=== PATIENT | female | born 1990 | race Hispanic/Latino ===

== ENCOUNTER 2018-10-03 22:44 | Emergency (ER) | payer BC ==
[2018-10-03 23:34] LABS: Absolute Lymphocytes (CBC) 2.1 K/uL (0.7-4.9); Basophils % 0.2 % (0-1.3); Eosinophils % 3.1 % (0-4.4); Hematocrit 33.2 % (36.0-45.0); Lymphocytes % 27.1 % (15.3-44.8); MPV 8.9 fL (7.6-11.3); Monocytes % 8.3 % (3.3-12.3); RBC Red Blood Cell Count 3.73 M/uL (3.86-4.86)
[2018-10-03 23:56] LABS: BUN Blood Urea Nitrogen 8 mg/dL (7-18); Bicarbonate 23 mmol/L (21-32); Glucose Level 96 mg/dL (74-106); Potassium 3.4 mmol/L (3.5-5.1); Sodium Level 140 mmol/L (136-145)
[2018-10-04 00:04] LABS: HCG, Quantitative 28713 mIU/mL (1-3)
[2018-10-04 00:04] LABS: Urine Blood 2+ (NEG); Urine Glucose NEGATIVE (NEG); Urine Protein NEGATIVE (NEG); Urine pH 5.5 (5.0-7.0)
[2018-10-04 00:53] LABS: Urine Bacteria <20 /HPF (<20); Urine Culture Reflex Order NOT NEEDED; Urine Mucus LIGHT /HPF (NONE SEEN); Urine RBC 20-50 /HPF (NONE SEEN)
[2018-10-04] MEDS ORDERED: POTASSIUM 25 MEQ EFFERV TAB ONE (01:09)
[2018-10-04] MEDS ORDERED: NA CHLORIDE 0.9% 1,000 ML ONE (01:16)
--- NOTE | 2018-10-04 02:15 | EDPHYS ---
Physician Documentation [facility] Name: Cathy Watt Age: 27 yrs Sex: Female : 1990 Arrival Date: 10/03/2018 Time: 22:45 Bed 23 Private MD: ED Physician Ray Quintero HPI: 10/03 23:40 This 27 yrs old Female presents to ER via Wheelchair with complaints of cp Vaginal Bleeding 16 Weeks . 23:40 The patient presents to the emergency department with vaginal bleeding, that is heavy. cp 23:40 The estimated gestational age is 16 weeks. course: care: private OB cp physician, Ultrasound: the patient had an ultrasound, on October 02, 2018. Previous pregnancies: in previous pregnancies patient has had no complications. Associated signs and symptoms: Pertinent negatives: dysuria, fever, vomiting. 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 - Social history:: Smoking status: Patient/guardian denies using tobacco. - Ebola Screening: : Patient negative for fever greater than or equal to 101.5 degrees Fahrenheit, and additional compatible Ebola Virus Disease symptoms Patient denies exposure to infectious person Patient denies travel to an Ebola-affected area in the 21 days before illness onset No symptoms or risks identified at this time. ROS: 23:45 Constitutional: Negative for body aches, chills, fever, poor PO intake. cp 23:45 Eyes: Negative for injury, pain, redness, and discharge. cp 23:45 ENT: Negative for drainage from ear(s), ear pain, sore throat, difficulty swallowing, difficulty handling secretions. 23:45 Cardiovascular: Negative for chest pain, palpitations. 23:45 Respiratory: Negative for cough, shortness of breath, wheezing. 23:45 Abdomen/GI: Negative for abdominal pain, nausea, vomiting, and diarrhea, black/tarry stool, rectal bleeding. 23:45 Back: Negative for pain at rest, pain with movement. 23:45 : Positive for vaginal bleeding, Negative for urinary symptoms. 23:45 Neuro: Negative for altered mental status, dizziness, headache, syncope, weakness. 23:45 All other systems are negative. Exam: 10/04 00:15 Constitutional: The patient appears in no acute distress, alert, awake, cp non-diaphoretic, non-toxic, well developed, well nourished. 00:15 Head/Face: Normocephalic, atraumatic. cp 00:15 Eyes: Periorbital structures: appear normal, Conjunctiva: normal, no exudate, no injection, Lids and lashes: appear normal, bilaterally. 00:15 ENT: External ear(s): are unremarkable, Nose: is normal, Mouth: Lips: moist, Oral mucosa: pink and intact, moist, Posterior pharynx: is normal, airway is patent, no erythema, no exudate. 00:15 Neck: ROM/movement: is normal, is supple, without pain, no range of motions limitations, no nuchal rigidity. 00:15 Chest/axilla: Inspection: normal, Palpation: is normal, no crepitus, no tenderness. 00:15 Cardiovascular: Rate: normal, Rhythm: regular. 00:15 Respiratory: the patient does not display signs of respiratory distress, Respirations: normal, no use of accessory muscles, no retractions, no splinting, no tachypnea, labored breathing, is not present, Breath sounds: are clear throughout, no decreased breath sounds, no stridor, no wheezing. 00:15 Abdomen/GI: Inspection: abdomen appears normal, Bowel sounds: active, all quadrants, Palpation: soft, in all quadrants, mild abdominal tenderness, in the right lower quadrant and left lower quadrant, rebound tenderness, is not appreciated, voluntary guarding, is not appreciated, involuntary guarding, is not appreciated. 00:15 Back: CVA tenderness, is absent. 00:15 : Pelvic Exam: External exam: is normal, Speculum exam: mild bleeding, os that is open, no tissue in cervix is seen, no tissue in vagina is seen, the nurse was present for the exam. 00:15 Neuro: Orientation: to person, place \T\ time. Mentation: is normal, Motor: moves all fours, strength is normal. Vital Signs: 10/03 23:07 BP 107 / 63; Pulse 64; Resp 16 S; Temp 99.5(O); Pulse Ox 100% on R/A; Weight 72.57 kg ca1 (R); Height 5 ft. 2 in. (157.48 cm) (R); Pain 4/10; 23:43 BP 99 / 60; Pulse 59; Resp 17 S; Pulse Ox 100% on R/A; ca1 10/04 00:39 BP 102 / 58; Pulse 60; Resp 17 S; Pulse Ox 100% on R/A; ca1 00:58 BP 103 / 59 Supine; Pulse 60; Resp 16 S; Pulse Ox 100% on R/A; ca1 01:00 BP 107 / 65 Sitting; Pulse 62; Resp 17 S; Pulse Ox 100% on R/A; ca1 01:02 BP 91 / 54 Standing; Pulse 74; Resp 16 S; Pulse Ox 100% on R/A; ca1 01:07 BP 93 / 50 Standing; Pulse 73; Resp 17 S; Pulse Ox 100% on R/A; ca1 02:25 BP 96 / 55 Supine; Pulse 76; Resp 17; Pulse Ox 100% ; Pain 0/10; tl1 10/03 23:07 Body Mass Index 29.26 (72.57 kg, 157.48 cm) ca1 MDM: 10/03 22:58 Patient medically screened. cp 10/04 00:00 Differential diagnosis: threatened Ab, inevitable Ab, complete Ab, retained Ab. cp 02:12 Data reviewed: vital signs, nurses notes, lab test result(s), I have discussed the cp patient's presentation/case with the attending Emergency Department Physician; and as a result, I will discharge patient. 02:12 Counseling: I had a detailed discussion with the patient and/or guardian regarding: the cp historical points, exam findings, and any diagnostic results supporting the discharge/admit diagnosis, lab results, radiology results, the need for outpatient follow up, an OB/Gyne specialist, to return to the emergency department if symptoms worsen or persist or if there are any questions or concerns that arise at home. Response to treatment: the patient's symptoms have mildly improved after treatment. ED course: VSS. Vaginal bleeding improved. FHTs 148. Will discharge to home for continued monitoring with pelvic rest precautions. 10/03 23:08 Order name: Quantitative Hcg 10/03 23:08 Order name: Abo/rh Typing 10/03 23:08 Order name: Basic Metabolic Panel; Complete Time: 00:49 cp 10/03 23:08 Order name: CBC with Diff; Complete Time: 00:49 cp 10/04 00:50 Interpretation: Normal except: RBC 3.73; HGB 11.7; HCT 33.2. 10/03 23:08 Order name: HCG, Quantitative; Complete Time: 00:49 EDMS 10/03 23:08 Order name: ABO/RH typing; Complete Time: 00:49 EDMS 10/03 23:08 Order name: Urine Test (obtain specimen); Complete Time: 00:00 10/04 00:01 Order name: Urine Dipstick--Ancillary (enter results) [facility] 10/04 00:01 Order name: Urine --Ancillary (enter results) [facility] 10/04 00:03 Order name: Urine Microscopic Only; Complete Time: 01:24 dm5 10/04 01:24 Interpretation: Normal except: URBC 20-50. 10/04 00:04 Order name: Urine --Ancillary; Complete Time: 00:49 EDMS 10/04 00:04 Order name: Urine Dipstick-Ancillary; Complete Time: 00:49 EDMS 10/03 23:08 Order name: IV Saline Lock; Complete Time: 23:13 cp 10/03 23:08 Order name: Labs collected and sent; Complete Time: 23:13 cp 10/03 23:08 Order name: NPO; Complete Time: 23:13 cp 10/03 23:08 Order name: Urine Dipstick-Ancillary (obtain specimen); Complete Time: 00:00 cp 10/03 23:33 Order name: Pelvic Exam Setup; Complete Time: 23:42 cp 10/03 23:37 Order name: FHT's; Complete Time: 23:42 cp 10/04 00:50 Order name: Orthostatics; Complete Time: 01:06 cp Administered Medications: 01:06 Drug: Potassium Effervescent Tablet 25 mEq Route: PO; ca1 02:27 Follow up: Response: No adverse reaction; No change in condition tl1 01:06 Drug: NS 0.9% 1000 ml Route: IV; Rate: 1 bolus; Site: right antecubital; ca1 02:22 Follow up: IV Status: Completed infusion; IV Intake: 1000ml dm5 Disposition: 04:00 Co-signature as Attending Physician, Ray Quintero MD. Disposition: 10/04/18 02:15 Discharged to Home. Impression: Threatened . - Condition is Stable. - Discharge Instructions: Threatened Miscarriage, Vaginal Bleeding During , Second Trimester, Pelvic Rest. - Medication Reconciliation Form, Thank You Letter, Antibiotic Education, Prescription Opioid Use form. - Follow up: Nikko Wyatt MD; When: 2 - 3 days; Reason: Recheck today's complaints. - Problem is new. - Symptoms have improved. Signatures: Dispatcher [employer] EDMS Altagracia Sibley RN RN tl1 Ralph Maradiaga PA PA cp Starr, Gregory, MD MD Ena Sinclair RN RN [facility] Trinity Mackey RN dm5 Corrections: (The following items were deleted from the chart) 02:28 02:15 10/04/2018 02:15 Discharged to Home. Impression: Threatened . Condition tl1 is Stable. Forms are Medication Reconciliation Form, Thank You Letter, Antibiotic Education, Prescription Opioid Use. Follow up: Nikko Wyatt; When: 2 - 3 days; Reason: Recheck today's complaints. Problem is new. Symptoms have improved. cp
--- NOTE | 2018-10-04 02:15 | ER ---
Nurse's Notes [facility] Name: Cathy Watt Age: 27 yrs Sex: Female : 1990 Arrival Date: 10/03/2018 Time: 22:45 Bed 23 Private MD: Diagnosis: Threatened Presentation: 10/03 23:05 Presenting complaint: states: about 15 minutes ago pt started bleeding heavily. ca1 She is 16 weeks . She was just sitting and stood up to go pee when she started bleeding. Transition of care: patient was not received from another setting of care. Onset of symptoms was October 03, 2018. Risk Assessment: Do you want to hurt yourself or someone else? Patient reports no desire to harm self or others. Initial Sepsis Screen: Does the patient meet any 2 criteria? No. Patient's initial sepsis screen is negative. Does the patient have a suspected source of infection? No. Patient's initial sepsis screen is negative. Care prior to arrival: None. 23:05 Method Of Arrival: Wheelchair ca1 23:05 Acuity: MADAI 3 ca1 Triage Assessment: 23:07 General: Appears in no apparent distress. uncomfortable, Behavior is calm, cooperative, ca1 appropriate for age. Pain: Complains of pain in suprapubic area Pain does not radiate. Pain currently is 4 out of 10 on a pain scale. Pain began suddenly, 30 min ago. : bright red blood noted on wheelchair, pt skirt and on the floor. 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 - Social history:: Smoking status: Patient/guardian denies using tobacco. - Ebola Screening: : Patient negative for fever greater than or equal to 101.5 degrees Fahrenheit, and additional compatible Ebola Virus Disease symptoms Patient denies exposure to infectious person Patient denies travel to an Ebola-affected area in the 21 days before illness onset No symptoms or risks identified at this time. Screenin:10 Abuse screen: Denies threats or abuse. Denies injuries from another. Nutritional ca1 screening: No deficits noted. Tuberculosis screening: No symptoms or risk factors identified. Fall Risk IV access (20 points). Assessment: 23:10 General: Appears in no apparent distress. comfortable, Behavior is calm, cooperative, ca1 appropriate for age. Pain: Complains of pain in suprapubic area Pain does not radiate. Pain currently is 4 out of 10 on a pain scale. Pain began 30 min ago. Neuro: Level of Consciousness is awake, alert, obeys commands, Oriented to person, place, time, situation. Cardiovascular: Heart tones S1 S2 present Capillary refill < 3 seconds Patient's skin is warm and dry. Pulses are all present. Respiratory: Airway is patent Respiratory effort is even, unlabored, Respiratory pattern is regular, symmetrical, Breath sounds are clear bilaterally. GI: Abdomen is round non-distended, Bowel sounds present X 4 quads. Abd is soft and non tender X 4 quads. Abdomen is tender to palpation in suprapubic area. : Reports vaginal bleeding that is bright red, moderate flow, since 15 minutes ago. EENT: No deficits noted. No signs and/or symptoms were reported regarding the EENT system. Derm: Skin is intact, is healthy with good turgor, Skin is pink, warm \T\ dry. Musculoskeletal: Circulation, motion, and sensation intact. Capillary refill < 3 seconds, Range of motion: intact in all extremities. 23:43 Reassessment: Patient appears in no apparent distress at this time. Patient and/or ca1 family updated on plan of care and expected duration. Pain level reassessed. Patient is alert, oriented x 3, equal unlabored respirations, skin warm/dry/pink. 10/04 00:39 Reassessment: Patient appears in no apparent distress at this time. Patient and/or ca1 family updated on plan of care and expected duration. Pain level reassessed. Patient is alert, oriented x 3, equal unlabored respirations, skin warm/dry/pink. 01:26 Reassessment: Patient appears in no apparent distress at this time. Patient and/or ca1 family updated on plan of care and expected duration. Pain level reassessed. Patient is alert, oriented x 3, equal unlabored respirations, skin warm/dry/pink. 01:47 General: Appears in no apparent distress. comfortable, appears to be resting quietly dm5 with eyes closed. Family at bedside. Call light within reach. . Behavior is calm, cooperative. Vital Signs: 10/03 23:07 BP 107 / 63; Pulse 64; Resp 16 S; Temp 99.5(O); Pulse Ox 100% on R/A; Weight 72.57 kg ca1 (R); Height 5 ft. 2 in. (157.48 cm) (R); Pain 4/10; 23:43 BP 99 / 60; Pulse 59; Resp 17 S; Pulse Ox 100% on R/A; ca1 10/04 00:39 BP 102 / 58; Pulse 60; Resp 17 S; Pulse Ox 100% on R/A; ca1 00:58 BP 103 / 59 Supine; Pulse 60; Resp 16 S; Pulse Ox 100% on R/A; ca1 01:00 BP 107 / 65 Sitting; Pulse 62; Resp 17 S; Pulse Ox 100% on R/A; ca1 01:02 BP 91 / 54 Standing; Pulse 74; Resp 16 S; Pulse Ox 100% on R/A; ca1 01:07 BP 93 / 50 Standing; Pulse 73; Resp 17 S; Pulse Ox 100% on R/A; ca1 02:25 BP 96 / 55 Supine; Pulse 76; Resp 17; Pulse Ox 100% ; Pain 0/10; tl1 10/03 23:07 Body Mass Index 29.26 (72.57 kg, 157.48 cm) ca1 Vitals: 10/03 23:59 Heart Tones 148. ca1 ED Course: 22:45 Patient arrived in ED. do 22:52 Ena Sinclair RN is Primary Nurse. ca1 22:53 Ralph Maradiaga PA is PHCP. cp 22:53 Ray Quintero MD is Attending Physician. cp 23:06 Triage completed. ca1 23:07 Arm band placed on right wrist. ca1 23:10 Patient has correct armband on for positive identification. Placed in gown. Bed in low ca1 position. Call light in reach. Side rails up X 1. Pulse ox on. NIBP on. Warm blanket given. 23:10 Inserted saline lock: 20 gauge in right antecubital area, using aseptic technique. ca1 Blood collected. 10/04 00:30 Assist provider with pelvic exam: Set up pelvic tray. Performed by Ralph YAP ca1 Patient tolerated well. 00:46 Urine --Ancillary (enter results) Sent. dm5 00:46 Urine Dipstick--Ancillary (enter results) Sent. dm5 00:46 Quantitative Hcg Sent. dm5 00:46 Abo/rh Typing Sent. dm5 01:25 Report given to DONN Rodriguez. ca1 01:46 Trinity Mackey, RN is Primary Nurse. dm5 02:10 Nikko Wyatt MD is Referral Physician. cp 02:23 IV discontinued, intact, bleeding controlled, No redness/swelling at site. Pressure dm5 dressing applied. Administered Medications: 01:06 Drug: Potassium Effervescent Tablet 25 mEq Route: PO; ca1 02:27 Follow up: Response: No adverse reaction; No change in condition tl1 01:06 Drug: NS 0.9% 1000 ml Route: IV; Rate: 1 bolus; Site: right antecubital; ca1 02:22 Follow up: IV Status: Completed infusion; IV Intake: 1000ml dm5 Intake: 02:22 IV: 1000ml; Total: 1000ml. dm5 Outcome: 02:15 Discharge ordered by . cp 02:26 Discharged to home via wheelchair, with family. tl1 02:26 Condition: stable 02:26 Discharge instructions given to patient, family, Instructed on discharge instructions, follow up and referral plans. Demonstrated understanding of instructions, follow-up care. 02:28 Patient left the ED. tl1 Signatures: Trinity Mackey, DONN RN dm5 Altagracia Sibley RN RN tl1 Ralph Maradiaga PA PA cp [place], Danielle do Acob, Cheryl, RN RN ca1
== END 2018-10-04 02:28 | disposition home or self-care (01) ==
LOC: ER 22:44
DX: O20.0 Threatened abortion (principal); Z3A.16 16 weeks gestation of pregnancy
CPT/HCPCS: 36415; 80048; 81003; 81015; 81025; 84702; 85025; 86900; 86901; 96360; 99284; J7030

== ENCOUNTER 2021-07-30 11:22 | Emergency (ER) | payer OTHER ==
--- OUTSIDE RECORDS SUMMARY | 2021-07-30 11:26 | XMS REPORT | Continuity of Care Document ---
:1990 Author Organization [facility] t Address [address] [place] [address] Care Team Providers Name Role Phone Danny Wren Attending Clinician Unavailable MARILEE Attending Clinician Unavailable Butch Attending Clinician Unavailable NORAH RO Attending Clinician Unavailable Angelica Wren Admitting Clinician Unavailable Payers Payer Name Policy Type Policy Number Effective Date Expiration Date S ource Problems This patient has no known problems. Allergies, Adverse Reactions, Alerts Allergy Allergy Status Severity Reaction(s) Onset Inactive Treating Comm ents Source Name Type Date Date Clinician shellfis FA Active SV THROAT [facility] h TINGLING,DIZ 05-01 [facility] derived ZINESS,CARVRE 00:00: [facility] [place] avocado FA Active U SWELLIMNG, [facility] NUMBNESS- 2 [facility] THROAT/MOUTH 00:00: [facility] [place] avocado FA Active U [facility] 6-01 [facility] 00:[facility]: [facility] [place] SEAFOOD DA Active SV HEADACHE, [facility] SHAKING,NUMB 08-23 [facility] NESS 00:00: [facility] TH[facility]AT[facility]TH [facility] [place] avocado FA Active U SWELLIMNG, [facility] NUMBNESS- 6 [facility] THROAT/MOUTH 00:00: [facility] [place] No Known DA Active U 2018-03 [facility] Allergie 2-28 Clear s 00:00: [place] [address] [place] [address] No Known DA Active U 2018-03 [facility] Allergie 2-28 [facility] s 00:[facility]: [facility] [place] Medications This patient has no known medications. Procedures Procedure Date / Time Performed Performing Clinician Sour e [id number] 2021-07-15 00:00:00 [facility] [id number] 2021-07-15 00:00:00 [facility] [id number] 2021-07-15 00:00:00 [facility] Encounters Start End Encounter Admission Attending Care Care Encounter Source Date/Time Date/Time Type Type Clinicians Facility Department ID 2021-05-01 Inpatient KATHERYN Wren [facility] [id number] [facility] 01:11:00 Danny 55 [facility] 2021-03-27 Outpatient Siena [facility] [id number] [facility] 15:01:13 Danny 11 [facility] 2020-12-18 Inpatient [facility] [id number] [facility] 18:42:00 [id number] [facility] [place] 2021-07-14 2021-07-16 Inpatient EM Siena [facility] [id number] [facility] 23:57:00 20:56:00 Danny [id number] [facility] [place] 2021-07-14 2021-07-16 Inpatient EM Siena [facility] OB [id number] [facility] 23:57:00 20:56:00 Danny 17 [facility] [place] 2021-05-01 2021-05-05 Inpatient [facility] [id number] [facility] 01:59:00 12:24:00 Danny 66 [facility] [place] 2021-05-01 2021-05-05 Inpatient EL Siena, [facility] OBANTE [id number] [facility] 01:59:00 12:24:00 Danny [id number] [facility] [place] 2021-03-27 2021-03-27 Outpatient EM Siena, [facility] RADI [id number] [facility] 10:20:00 10:20:00 Danny [id number] [facility] [place] 2021-03-20 2021-03-20 Inpatient EM Siena, [facility] RADI [id number] [facility] 11:00:00 11:00:00 Danny [id number] [facility] [place] 2021-02-12 2021-02-12 Emergency E MARILEE BL MHBL [id number] BL 16:19:00 21:52:00 , MK 2020-12-18 2020-12-18 Emergency EM Butch, [facility] KARLIE [id number] [facility] 18:42:00 22:58:00 Analysa 47 [facility] [place] 2020-10-01 2020-10-01 Emergency E JAYJAY, MHBL MHBL [id number] MHBL 16:03:00 18:52:00 ORIANA 2020-08-26 2020-08-26 Outpatient Siena, [facility] SILVIA [id number] [facility] 16:15:00 16:15:00 Danny [id number] [facility] [place] 2020-08-23 2020-08-23 [facility] [id number] [facility] 16:00:00 16:00:00 Danny [id number] [facility] Results Test Description Test Time Test Comments Results Result Comments Source HGB HCT 2021-07-16 11:58:00 Test Item Value Reference Range Interpretation Comme nts HEMOGLOBIN (test code = HGB) 11.0 g/dL 10.1-13.8 N HEMATOCRIT (test code = HCT) 33.1 % 32.5-41.8 N AG HEPATITIS B [id number] 05:36:00 Test Item Value Reference Range Interpretation Comments AG HEPATITIS B SURFACE (test code NONREACTIVE NONREACTIVE = HBSAG) AB HEPATITIS C [id number] 05:36:00 Test Item Value Reference Range Interpretation Comments AB HEPATITIS C (test code = NONREACTIVE NONREACTIVE HCVAB) SIGNAL TO CUTOFF (test code = 0.06 <0.80 N CUTOFF) AB [id number] 05:36:00 Test Item Value Reference Range Interpretation Comments AB TREPONEMA (test code = TREPAB) NONREACTIVE NONREACTIVE AB HIV 1 05:36:00 Test Item Value Reference Range Interpretation Comments AB HIV 1 2 (test NONREACTIVE NONREACTIVE Done by S Firmafonaur code = [id number]) 4th Gen HIV Ag/Ab Combo Screen PIH [id number] 00:40:00 Test Item Value Reference Range Interpretation Comments CREATININE (test code = CREAT) 0.5 mg/dL 0.5-1.0 N SGOT/AST (test code = AST) 25 units/L 15-37 N SGPT/ALT (test code = ALT) 15 units/L 12-78 N LACTIC DEHYDROGENASE(LDH) (test 236 units/L 81-234 H code = LDH) : *COMPREHENSIVE METABOLIC [id number] 00:40:00 Test Item Value Reference Range Interpretation Comments SODIUM (test code = NA) 138 mEq/L 135-145 N POTASSIUM (test code = K) 4.3 mEq/L 3.5-5.0 N CHLORIDE (test code = CL) 105 mEq/L 100-115 N CARBON DIOXIDE (test code = CO2) 25 mEq/L 22-31 N ANION GAP (test code = GAP) 12.00 10-20 N GLUCOSE (test code = GLU) 74 mg/dL 65-110 N BLOOD UREA NITROGEN (test code = 9 mg/dL 7-18 N BUN) GLOMERULAR FILTRATION RATE (test 145 ml/min >60 N code = GFR) TOTAL PROTEIN (test code = PROT) 5.4 gm/dL 6.3-8.2 L ALBUMIN (test code = ALB) 2.3 gm/dL 3.4-4.8 L CALCIUM (test code = CA) 8.0 mg/dL 8.4-10.2 L BILIRUBIN TOTAL (test code = 0.2 mg/dL 0.2-1.0 N BILT) ALKALINE PHOSPHATASE TOTAL (test 176 units/L 46-116 H code = ALKP) : *COVID 19 Asymptomatic IH [id number] 00:11:00 Test Item Value Reference Range Interpretation Comments COVID 19 NEGATIVE NEGATIVE This test has b een Asymptomatic IH AG authorize d only for the (test code = detection ofpro teins from COVNONPUIAG) SARS-CoV-2, not for any other viruses orpathogens. N egative results should be treated as presumptive andconfirmed wi th a molecular assay , if necessary for patientmanageme nt. Negative result s do not rule out COVID- 19 andshould not b e used as the sole basis for treatment orpat ient management deci sions, including infec tion controldecision s. Negative result s should be considered i n thecontext of a patient's recent exposure s, history and thepresence of clinical signs and symptoms consis tent withCOVID-19. T his test has not been FD A cleared or approved; th e test hasbeen authorshakir gomez by FDA under an Emerge ncy Use Authorization(E UA) for use by laborato stephanie certified under the CLIA thatmeet the re quirements to perform mode rate, high or waivedcomple xity tests. This jackelin t is authorized for use at thePoint of Car e (POC), i.e., in patien t care settingsoperati ng under a CLIA Certificat e of Waiver, Certifi pranay ofCompliance, o r Certificate of Accreditation. This test is only authori patricia for the duration of thedeclaration that circumstances e xist justifying theauthorizatio n of emergency use o f in vitro diagnostic test sfor detection and/o r diagnosis of CO VID-19 under Tpypwow77 4(b)(1) of the Act, 21 U.S .C. 360bbb-3(b)(1), unless theauthorizatio n is terminated or r evoked sooner. CBC W/AUTO [id number] 00:09:00 Test Item Value Reference Range Interpretation Comments WHITE BLOOD CELL (test code = WBC) 6.2 K/mm3 6.5-12.3 L RED BLOOD CELL (test code = RBC) 3.60 M/mm3 3.51-4.69 N HEMOGLOBIN (test code = HGB) 10.7 g/dL 10.1-13.8 N HEMATOCRIT (test code = HCT) 33.1 % 32.5-41.8 N MEAN CELL VOLUME (test code = MCV) 91.9 fL 84.6-96.6 N MEAN CELL HGB (test code = MCH) 29.7 pg 27.3-33.9 N MEAN CELL HGB CONCETRATION (test 32.3 gm/dL 32.0-34.2 N code = MCHC) RED CELL DISTRIBUTION WIDTH (test 15.4 % 12.2-16.3 N code = RDW) PLATELET COUNT (test code = PLT) 170 K/mm3 134-363 N MEAN PLATELET VOLUME (test code = 11.5 fL 9.2-12.7 N MPV) NEUTROPHIL % (test code = NT%) 56.4 % 57.9-77.3 L LYMPHOCYTE % (test code = LY%) 26.8 % 14.5-29.7 N MONOCYTE % (test code = MO%) 11.1 % 3.6-10.2 H EOSINOPHIL % (test code = EO%) 4.8 % 0.0-3.0 H BASOPHIL % (test code = BA%) 0.3 % 0.1-0.9 N NEUTROPHIL # (test code = NT#) 3.5 K/mm3 LYMPHOCYTE # (test code = LY#) 1.7 K/mm3 MONOCYTE # (test code = MO#) 0.7 K/mm3 EOSINOPHIL # (test code = EO#) 0.30 K/mm3 BASOPHIL # (test code = BA#) 0.0 K/mm3 RBC MORPHOLOGY REQUIRED (test code NORMAL NORMAL = RBCM) PLATELET MORPHOLOGY REQUIRED (test NORMAL NORMAL code = PLTMR) RUPTURE OF [id number] 08:24:00 Test Item Value Reference Range Interpretation Comments RUPTURE OF MEMBRANES (test code NON-RUPTURED = ROM) AG HEPATITIS B [id number] 03:20:00 Test Item Value Reference Range Interpretation Comments AG HEPATITIS B SURFACE (test code NONREACTIVE NONREACTIVE = HBSAG) AB HEPATITIS C [id number] 03:20:00 Test Item Value Reference Range Interpretation Comments AB HEPATITIS C (test code = NONREACTIVE NONREACTIVE HCVAB) SIGNAL TO CUTOFF (test code = 0.04 <0.80 N CUTOFF) AB [id number] 03:20:00 Test Item Value Reference Range Interpretation Comments AB TREPONEMA (test code = TREPAB) NONREACTIVE NONREACTIVE AB HIV 1 03:20:00 Test Item Value Reference Range Interpretation Comments AB HIV 1 2 (test NONREACTIVE NONREACTIVE Done by [facility] artandseekr code = [id number]) 4th Gen HIV Ag/Ab Combo Screen COMPREHENSIVE METABOLIC [id number] 02:16:00 Test Item Value Reference Range Interpretation Comments SODIUM (test code = NA) 134 mEq/L 135-145 L POTASSIUM (test code = K) 4.2 mEq/L 3.5-5.0 N CHLORIDE (test code = CL) 103 mEq/L 100-115 N CARBON DIOXIDE (test code = CO2) 21 mEq/L 22-31 L ANION GAP (test code = GAP) 13.80 10-20 N GLUCOSE (test code = GLU) 166 mg/dL 65-110 H BLOOD UREA NITROGEN (test code = 8 mg/dL 7-18 N BUN) GLOMERULAR FILTRATION RATE (test 187 ml/min >60 N code = GFR) CREATININE (test code = CREAT) 0.4 mg/dL 0.5-1.0 L TOTAL PROTEIN (test code = PROT) 6.3 gm/dL 6.3-8.2 N ALBUMIN (test code = ALB) 2.6 gm/dL 3.4-4.8 L CALCIUM (test code = CA) 8.2 mg/dL 8.4-10.2 L BILIRUBIN TOTAL (test code = BILT) 0.2 mg/dL 0.2-1.0 N SGOT/AST (test code = AST) 27 units/L 15-37 N SGPT/ALT (test code = ALT) 15 units/L 12-78 N ALKALINE PHOSPHATASE TOTAL (test 92 units/L 46-116 N code = ALKP) COVID 19 Asymptomatic IH [id number] 01:58:00 Test Item Value Reference Range Interpretation Comments COVID 19 NEGATIVE NEGATIVE This test has b een Asymptomatic IH AG authorize d only for the (test code = detection ofpro teins from COVNONPUIAG) SARS-CoV-2, not for any other viruses orpathogens. N egative results should be treated as presumptive andconfirmed wi th a molecular assay , if necessary for patientmanageme nt. Negative result s do not rule out COVID- 19 andshould not b e used as the sole basis for treatment orpat ient management deci sions, including infec tion controldecision s. Negative result s should be considered i n thecontext of a patient's recent exposure s, history and thepresence of clinical signs and symptoms consis tent withCOVID-19. T his test has not been FD A cleared or approved; th e test hasbeen authori zemichell by FDA under an Emerge ncy Use Authorization(E UA) for use by laborato stephanie certified under the CLIA thatmeet the re quirements to perform mode rate, high or waivedcomple xity tests. This jackelin t is authorized for use at thePoint of Car e (POC), i.e., in patien t care settingsoperati ng under a CLIA Certificat e of Waiver, Certifi pranay ofCompliance, o r Certificate of Accreditation. This test is only authori zed for the duration of thedeclaration that circumstances e xist justifying theauthorizatio n of emergency use o f in vitro diagnostic test sfor detection and/o r diagnosis of CO VID-19 under Pdlebiq86 4(b)(1) of the Act, 21 U.S .C. 360bbb-3(b)(1), unless theauthorizatio n is terminated or r evoked sooner. CBC W/AUTO [id number] 01:54:00 Test Item Value Reference Range Interpretation Comments WHITE BLOOD CELL (test code = WBC) 8.5 K/mm3 6.5-12.3 N RED BLOOD CELL (test code = RBC) 3.17 M/mm3 3.51-4.69 L HEMOGLOBIN (test code = HGB) 9.4 g/dL 10.1-13.8 L HEMATOCRIT (test code = HCT) 28.9 % 32.5-41.8 L MEAN CELL VOLUME (test code = MCV) 91.2 fL 84.6-96.6 N MEAN CELL HGB (test code = MCH) 29.7 pg 27.3-33.9 N MEAN CELL HGB CONCETRATION (test 32.5 gm/dL 32.0-34.2 N code = MCHC) RED CELL DISTRIBUTION WIDTH (test 13.0 % 12.2-16.3 N code = RDW) PLATELET COUNT (test code = PLT) 229 K/mm3 134-363 N MEAN PLATELET VOLUME (test code = 10.4 fL 9.2-12.7 N MPV) NEUTROPHIL % (test code = NT%) 84.3 % 57.9-77.3 H LYMPHOCYTE % (test code = LY%) 12.3 % 14.5-29.7 L MONOCYTE % (test code = MO%) 2.5 % 3.6-10.2 L EOSINOPHIL % (test code = EO%) 0.2 % 0.0-3.0 N BASOPHIL % (test code = BA%) 0.1 % 0.1-0.9 N NEUTROPHIL # (test code = NT#) 7.1 K/mm3 LYMPHOCYTE # (test code = LY#) 1.0 K/mm3 MONOCYTE # (test code = MO#) 0.2 K/mm3 EOSINOPHIL # (test code = EO#) 0.02 K/mm3 BASOPHIL # (test code = BA#) 0.0 K/mm3 RBC MORPHOLOGY REQUIRED (test code NORMAL NORMAL = RBCM) PLATELET MORPHOLOGY REQUIRED (test NORMAL NORMAL code = PLTMR) URINALYSIS [id number] 01:54:00 Test Item Value Reference Range Interpretation Comments UA COLOR (test code = YELLOW YELLOW COLU) UA APPEARANCE (test CLEAR CLEAR code = APPU) UA GLUCOSE DIPSTICK 1+ NEGATIVE A (test code = DGLUU) UA BILIRUBIN DIPSTICK NEGATIVE NEGATIVE (test code = BILU) UA KETONE DIPSTICK NEGATIVE NEGATIVE (test code = KETU) UA SPECIFIC GRAVITY 1.025 1.001-1.035 N (test code = SGU) UA BLOOD DIPSTICK NEG NEGATIVE (test code = OLAMIDE) UA PH DIPSTICK (test 6.0 5-9 code = CARLOS) UA PROTEIN DIPSTICK NEGATIVE NEGATIVE (test code = PROU) UA UROBILINIOGEN 0.2 EU/dL See_Comment [Automated DIPSTICK (test code = messag e] The URO) system which generated this result transmit alia reference range : <=1.0. The reference range was not used to interpret this result as normal/abnormal . UA NITRITE DIPSTICK NEGATIVE NEGATIVE (test code = EDIE) UA LEUKOCYTE ESTERASE NEG NEGATIVE DIPSTICK (test code = LEUU) UA WBC (test code = 0-2 #/hpf NONE SEEN WBCU) UA EPITHELIAL CELLS NONE SEEN #/HPF RARE-FEW (test code = EPIU) UA RBC (test code = 0-2 #/hpf NONE SEEN RBCU) UA MUCUS (test code = 1+ NONE SEEN MUCU) URINE SAMPLE: CLEAN CATCH- US PREG UT [id number] [facility]:00[facility] 1990 Sex: F Patient Name: KIRSTEN JANE Unit No: [id number] EXAMS: CPT CODE: [id number] US PREG UT TRANSVAGINAL 08115 PROCEDURE INFORMATION: Exam: US After First Trimester, Transabdominal and US , Transvaginal Exam date and time: 05/01/2021 3:08 AM Age: 30 years old Clinical indication: Screening exam; Other: Twins at 26 weeks; Growth, cervical length, placenta location; ; Additional info: Twins at 26 weeks; Growth, cervical length, placenta locat TECHNIQUE: Imaging protocol: Real-time transabdominal obstetrical ultrasound of the maternal pelvis and a second or third trimester with image documentation. Transvaginal imaging wasused for better evaluation of the fetus, adnexa, and/or cervix. COMPARISON: OT US PREG AFTER 1ST TRI 03/27/2021 10:46 AM FINDINGS: Live twin intrauterine with thickened membrane suggesting dichorionic diamniotic . Closed cervix measuring 1.5 cm containing a small amount of mucus or debris. Nonvisualized maternal ovaries related to body habitus and overlying bowel gas. Twin A: Presentation: Cephalic. Placenta: Anterior grade 2. No placenta previa JASMINE: Qualitatively normal. Single deepest pocket 5.7 cm. Biparietaldiameter: 6.64 cm or 26 weeks 5 days Head circumference: 24.54 cm or 26 weeks 5 days Abdominal circumference: 21.79 cm or 26 weeks 2 days Femur length: 4.87 cm or 26 weeks 3 days Gestational age (AUA): 26 weeks 4 days Estimated due date (AUA): 08/03/2021 Estimated weight:927 +/-139 g (2 lb 1 oz +/-5 oz) 57.4% heart rate 136 bpm. FL/BPD: 73.39 (71-87) FL/AC: 22.36 (20-24) HC/AC: 1.13 (0.93-1.11) Cephalic index: 77.24 (70-86) The structures are not individually evaluated on this examination, but no abnormality is demonstrated. Twin B: [facility] NAME: KIRSTEN JANE Radiology Department PHYS: Danny Bello MD [address] : 1990 AGE: 30 SEX: F [place], [place] [address] LOC: Ildefonso Bustillo PHONE #: [phone] EXAM DATE: 05/01/2021 STATUS: ADM IN FAX #: [phone] RAD NO: Page 1 Signed Report (CONTINUED) Patient Name: KIRSTEN JANE Unit No: [id number] EXAMS: CPT CODE: [id number] [facility] TRANSVAGINAL 40147 <Continued> Presentation: Transverse maternal left Placenta: Posterior right grade 2. No placenta previa. JSAMINE: Qualitatively normal. Single deepest pocket 7.0 cm Biparietal diameter: 6.45 cm or 26 weeks 1 day Head circumference: 23.95 cm or 26 weeks 0 days Abdominal circumference: 21.64 cm or 26 weeks 1 day Femur length: 4.77 cm or 26 weeks 0 days Gestational age (AUA): 26 weeks 1 day Estimated due date (AUA): 08/06/2021 Estimated weight: 886 +/-133 g (1 lb 15 oz +/-5 oz) 52.9% heart rate 125 bpm. FL/BPD: 74.05(71-87) FL/AC: 22.06 (20-24) HC/AC: 1.11 (0.93-1.11) Cephalic index: 74.95 (70-86) The structures are not individually evaluated on this examination, but no abnormality is demonstrated. IMPRESSION: Live twin intrauterine as above described. Elect ronically Signed by Miller Car MD on 05/01/2021 at 0424 Reported and signed by: Miller Car MD CC: Technologist:Evi He RDMS Probe: [id number] Trnscrbd D/ (042) GCD.CPS Orig Print D/T: S: 05/01/2021 (0425) [facility] NAME: BUCKKIRSTEN Radiology Department PHYS: Danny Bello MD [address] : 1990 AGE: 30 SEX: F [place] [address] LOC: F.027 A PHONE #: [phone] EXAM DATE: 05/01/2021 STATUS: ADM IN FAX #: [phone] RAD NO: Page 2 Signed Report Patient Name: KIRSTEN JANE Unit No: [id number] EXAMS: CPT CODE: [id number] US PREG UT TRANSVAGINAL 15410 <Continued> [facility] NAME: RYLIE JANELINDA Radiology Department PHYS: Danny Bello MD [address] : 1990 AGE: 30 SEX: F [place] [address] LOC: F.027 A PHONE #: [phone] EXAM DATE: 05/01/2021 STATUS: ADM IN FAX #: [phone] RAD NO: Page 3 Signed Report- US FLW [id number] [facility] 1990 Sex: F Patient Name: KIRSTEN JANE Unit No: [id number] EXAMS: CPT CODE: [id number] [place]W [place] [address] PROCEDURE INFORMATION: Exam: US After First Trimester, Transabdominal and US , Transvaginal Exam date and time: 05/01/2021 3:08 AM Age: 30 years old Clinical indication: Screening exam; Other: Twins at 26 weeks; Growth, cervical length, placenta location; ; Additional info: Twins at 26 weeks; Growth, cervical length, placenta locat TECHNIQUE: Imaging protocol: Real-time transabdominal obstetrical ultrasound of the maternal pelvis and a second or third trimester with image documentation. Transvaginal imaging wasused for better evaluation of the fetus, adnexa, and/or cervix. COMPARISON: OT US PREG AFTER 1ST TRI 03/27/2021 10:46 AM FINDINGS: Live twin intrauterine with thickened membrane suggesting dichorionic diamniotic . Closed cervix measuring 1.5 cm containing a small amount of mucus or debris. Nonvisualized maternal ovaries related to body habitus and overlying bowel gas. Twin A: Presentation: Cephalic. Placenta: Anterior grade 2. No placenta previa JASMINE: Qualitatively normal. Single deepest pocket 5.7 cm. Biparietaldiameter: 6.64 cm or 26 weeks 5 days Head circumference: 24.54 cm or 26 weeks 5 days Abdominal circumference: 21.79 cm or 26 weeks 2 days Femur length: 4.87 cm or 26 weeks 3 days Gestational age (AUA): 26 weeks 4 days Estimated due date (AUA): 08/03/2021 Estimated weight:927 +/-139 g (2 lb 1 oz +/-5 oz) 57.4% heart rate 136 bpm. FL/BPD: 73.39 (71-87) FL/AC: 22.36 (20-24) HC/AC: 1.13 (0.93-1.11) Cephalic index: 77.24 (70-86) The structures are not individually evaluated on this examination, but no abnormality is demonstrated. [facility] B: [facility] NAME: KIRSTEN JANE Radiology Department PHYS: Danny Bello MD [address] : 1990 AGE: 30 SEX: F [place], [place] [address] LOC: Ildefonso Bustillo PHONE #: [phone] EXAM DATE: 05/01/2021 STATUS: ADM IN FAX #: [phone] RAD NO: Page 1 Signed Report (CONTINUED) Patient Name: KIRSTEN JANE Unit No: [id number] EXAMS: CPT CODE: [id number] [place] [address] <Continued> Presentation: Transverse maternal left Placenta: Posterior right grade 2. No placenta previa. JASMINE: Qualitatively normal. Single deepest pocket 7.0 cm Biparietal diameter: 6.45 cm or 26 weeks 1 day Head circumference: 23.95 cm or 26 weeks 0 days Abdominal circumference: 21.64 cm or 26 weeks 1 day Femur length: 4.77 cm or 26 weeks 0 days Gestational age (AUA): 26 weeks 1 day Estimated due date (AUA): 08/06/2021 Estimated weight: 886 +/-133 g (1 lb 15 oz +/-5 oz) 52.9% heart rate 125 bpm. FL/BPD: 74.05(71-87) FL/AC: 22.06 (20-24) HC/AC: 1.11 (0.93-1.11) Cephalic index: 74.95 (70-86) The structures are not individually evaluated on this examination, but no abnormality is demonstrated. IMPRESSION: Live twin intrauterine as above described. at 0424 Reported and signed by: Miller Car MD CC: Technologist:Evi He RDMS Probe: Trnscrbd D/ (0424) GCD.CPS Orig Print D/T: S: 05/01/2021 (0425) [facility] NAME: KIRSTEN JANE Radiology Department PHYS: Danny Bello MD [address] : 1990 AGE: 30 SEX: F [place], [place] [address] LOC: Scooby027 A PHONE #: [phone] EXAM DATE: 05/01/2021 STATUS: ADM IN FAX #: [phone] RAD NO: Page 2 Signed Report Patient Name: KIRSTEN JANE Unit No: [id number] EXAMS: CPT CODE: [id number] [place]W [place] [address] <Continued> [facility] NAME: KIRSTEN JANE Radiology Department PHYS: Danny Bello MD [address] : 1990 AGE: 30 SEX: F [place], [place] [address]BJNR NO: [id number] LOC: Bre027 A PHONE #: [phone] EXAM DATE: 05/01/2021 STATUS: ADM IN FAX #: [phone] RAD NO: Page 3 Signed Report- US FLW [id number] 00:00:00 [facility] 1990 Sex: F Patient Name: KIRSTEN JANE Unit No: [id number] EXAMS: CPT CODE: [id number] [place]W [place] [address] PROCEDURE INFORMATION: Exam: US After First Trimester, Transabdominal and US , Transvaginal Exam date and time: 05/01/2021 3:08 AM Age: 30 years old Clinical indication: Screening exam; Other: Twins at 26 weeks; Growth, cervical length, placenta location; ; Additional info: Twins at 26 weeks; Growth, cervical length, placenta locat TECHNIQUE: Imaging protocol: Real-time transabdominal obstetrical ultrasound of the maternal pelvis and a second or third trimester with image documentation. Transvaginal imaging wasused for better evaluation of the fetus, adnexa, and/or cervix. COMPARISON: OT US PREG AFTER 1ST TRI 03/27/2021 10:46 AM FINDINGS: Live twin intrauterine with thickened membrane suggesting dichorionic diamniotic . Closed cervix measuring 1.5 cm containing a small amount of mucus or debris. Nonvisualized maternal ovaries related to body habitus and overlying bowel gas. Twin A: Presentation: Cephalic. Placenta: Anterior grade 2. No placenta previa JASMINE: Qualitatively normal. Single deepest pocket 5.7 cm. Biparietaldiameter: 6.64 cm or 26 weeks 5 days Head circumference: 24.54 cm or 26 weeks 5 days Abdominal circumference: 21.79 cm or 26 weeks 2 days Femur length: 4.87 cm or 26 weeks 3 days Gestational age (AUA): 26 weeks 4 days Estimated due date (AUA): 08/03/2021 Estimated weight:927 +/-139 g (2 lb 1 oz +/-5 oz) 57.4% heart rate 136 bpm. FL/BPD: 73.39 (71-87) FL/AC: 22.36 (20-24) HC/AC: 1.13 (0.93-1.11) Cephalic index: 77.24 (70-86) The structures are not individually evaluated on this examination, but no abnormality is demonstrated. [facility] B: [facility] NAME: KIRSTEN JANE Radiology Department PHYS: Danny Bello MD [address] : 1990 AGE: 30 SEX: F [place], [place] [address] LOC: Scooby027 A PHONE #: [phone] EXAM DATE: 05/01/2021 STATUS: ADM IN FAX #: [phone] RAD NO: Page 1 Signed Report (CONTINUED) Patient Name: KIRSTEN JANE Unit No: [id number] EXAMS: CPT [place]: [id number] [place] [address] <Continued> Presentation: Transverse maternal left Placenta: Posterior right grade 2. No placenta previa. JASMINE: Qualitatively normal. Single deepest pocket 7.0 cm Biparietal diameter: 6.45 cm or 26 weeks 1 day Head circumference: 23.95 cm or 26 weeks 0 days Abdominal circumference: 21.64 cm or 26 weeks 1 day Femur length: 4.77 cm or 26 weeks 0 days Gestational age (AUA): 26 weeks 1 day Estimated due date (AUA): 08/06/2021 Estimated weight: 886 +/-133 g (1 lb 15 oz +/-5 oz) 52.9% heart rate 125 bpm. FL/BPD: 74.05(71-87) FL/AC: 22.06 (20-24) HC/AC: 1.11 (0.93-1.11) Cephalic index: 74.95 (70-86) The structures are not individually evaluated on this examination, but no abnormality is demonstrated. IMPRESSION: Live twin intrauterine as above described. at 0424 Reported and signed by: Miller Car MD CC: Technologist:Evi He RDMS Probe: Trnscrbd D/ (0424) GCD.CPS Orig Print D/T: S: 05/01/2021 (0425) [facility] NAME: KIRSTEN JANE Radiology Department PHYS: Danny Bello MD [address] : 1990 AGE: 30 SEX: F [place], [place] [address] LOC: Scooby027 A PHONE #: [phone] EXAM DATE: 05/01/2021 STATUS: ADM IN FAX #: [phone] RAD NO: Page 2 Signed Report Patient Name: KIRSTEN JANE Unit No: [id number] EXAMS: CPT CODE: [id number] [place] UP [address]252 <Continued> [facility] NAME: KIRSTEN JANE Radiology Department PHYS: Danny Bello MD [address] : 1990 AGE: 30 SEX: F [place], [place] [address]IDAC NO: [id number] LOC: FVilma A PHONE #: [phone] EXAM DATE: 05/01/2021 STATUS: ADM IN FAX #: [phone] RAD NO: Page 3 Signed Report- US PRG AFT TRI [id number] 00:00:00 [facility] 1990 Sex: F Patient Name: KIRSTEN JANE Unit No: [id number] EXAMS: CPT CODE: [id number] [place] PRG AFT 1ST [place] [address] PROCEDURE INFORMATION: Exam: US After First Trimester, Transabdominal Exam date and time: 03/27/2021 10:46 AM Age: 30 years old Clinical indication: Screening exam; Routine US, uterus; Additional info: Anatomy LABS AND CLINICAL REPORTS: Gestational age (Established): 21 weeks, 0 days 08/07/2021 Estimated due date (Established): 08/07/2021 TECHNIQUE: Imaging protocol: Real-time transabdominal obstetrical ultrasound of the maternal pelvis and a second or third trimester with image documentation. COMPARISON: OT US PREG 1ST TRIMTR 12/18/2020 9:02 PM FINDINGS: Number of fetuses: 2 Multifetal identity: Fetus A Gestation: Twin, viable intrauterine gestation. heart rate: 143 bpm presentation: Vertex (maternal left) Placenta: Anterior placenta, grade 1, without previa or retroplacental hemorrhage Amniotic fluid: Amniotic fluid is normal for gestational age. ANATOMY: midline falx: Unremarkable cerebellum: Unremarkable lateral ventricles: Unremarkable cisterna magna: Unremarkable choroid plexus: Unremarkable upper lip and nose: Unremarkable heart four-chamber view, heart size and position: Four-chamber heart visualized with left cardiac apex. Unremarkable LVOT. Limited RVOT by position. kidneys: Unremarkable stomach: Unremarkable. Normal situs. urinary bladder: Unremarkable spine: Unremarkable Umbilical cord insertion site into the abdomen: Unremarkable cord insertion Umbilical cord vessel number: 3 vessel cord arms and hands: Unremarkab le legs and feet: Unremarkable external genitalia: Unremarkable BIOMETRY: Estimated due date (AUA): 08/04/2021 Gestational age (AUA): 21 weeks, 3 days Estimated weight: 411 +/- 60 g [facility] NAME: BUCK,KIRSTEN Radiology Department PHYS: Danny Bello MD [address] : 1990 AGE: 30 SEX: F [place], [place] [address] LOC: F.RAD PHONE #: [phone] EXAM DATE: 03/27/2021 STATUS: REG CLI FAX #: [phone] RAD NO: Page 1 Signed Report (CONTINUED) Patient Name: KIRSTEN JANE Unit No: [id number] EXAM S: CPT CODE: [id number] US PRG AFT 1ST TRI AD [address] <Continued> Estimated weight percentile: 50.1 % Biparietal diameter (BPD): 5.15 cm (21 weeks, 4 days) Head circumference (HC): 19.15 cm (21 weeks, 3 days) Abdominal circumference (AC): 15.72 cm (20 weeks, 6 days) Humerus length (HL): 3.38 cm (21 weeks, 3 days) Femur length (FL): 3.67 cm (21 weeks, 5 days) FL/AC: 23.35 (20-24%) FL/BPD: 71.26 (71-87%) HC/AC: 1.22 (1.06-1.25) MATERNAL: Uterus: Unremarkable. Cervix: The cervix is closed measuring 4.5 cm in length. Right ovary/adnexa: Ovary is obscured by overlying bowel gas. Left ovary/adnexa: Ovary is obscured by overlying bowel gas. Intraperitoneal space: No intraperitoneal free fluid. IMPRESSION: 1. Viable dichorionic/diamniotic twin intrauterine gestation with normal growth for fetus A concordant with dates. Estimated weight of 411+/- 60 g (50.1 %). 2. Limited RVOT visualization by position. Otherwise no gross anatomic abnormalities are detected. 3. The cervix is closed measuring 4.5 cm in length. 4.Normal amniotic fluid. PROCEDURE INFORMATION: Exam: US After First Trimester, Transabdominal. Additional Gestation Exam date and time: 03/27/2021 10:46 AM Age: 30 years old Clinical indication: Screening exam; Routine US, uterus; Additional info: Anatomy LABS AND CLINICAL REPORTS: Gestational age (Established): 21 weeks, 0 days 08/07/2021 Estimated due date (Established): 08/07/2021 TECHNIQUE: Imaging protocol: Real-time transabdominal obstetrical ultrasound of the maternal pelvis and a second or third trimester with image documentation. Additional Gestation was evaluated. COMPARISON: OT US PREG 1ST TRIMTR 12/18/2020 9:02 PM FINDINGS: Number of fetuses: 2 Multifetal identity: Fetus B Gestation: Twin, viable intrauterine gestation. heart rate: 135 bpm [facility] NAME: KIRSTEN JANE Radiology Department PHYS: Danny Bello MD [address] : 1990 AGE: 30 SEX: F [place], [place] [address] LOC: F.RAD PHONE #: [phone] EXAM DATE: 03/27/2021 STATUS: REG CLI FAX #: [phone] RAD NO: Page 2 SignedReport (CONTINUED) Patient Name: KIRSTEN JANE Unit No: [id number] EXAMS: CPT CODE: [id number] [place] PRG AFT 1ST [place] [address] <Continued> presentation: Vertex(maternal right) Placenta: Posterior placenta, grade 1, without previa or retroplacental hemorrhage. Amniotic fluid: Amniotic fluid is normal for gestational age. ANATOMY: midline falx: Unremarkable septum pellucidum: Unremarkable cerebellum:Unremarkable lateral ventricles: Unremarkable cisterna magna: UnremarkableFetal upper lip and nose: Unremarkable heart four-chamber view, heart size and position: Four-chamber heart identified with left cardiac apex. RVOT/LVOT are unremarkable Fe hussain kidneys: Unremarkable stomach: Unremarkable. Normal situs. urinary bladder: Unremarkable Spine: Unremarkable Umbilical cord insertion site into the abdomen:Normal cord insertion Umbilical cord vessel number: 3 Arms and hands: UnremarkableLegs and feet: Unremarkable external genitalia: Unremarkable BIOMETRY: Gestational age (AUA): 21 weeks, 2 days Estimated weight percentile: 49.2 % Estimated due date (AUA): 08/05/2021 Estimated weight: 408 +/- 60 g Biparietal diameter: 4.94 cm (21 weeks, 0 days) Head circumference: 18.8 cm (21 weeks, 1 day) Abdominal circumference: 16.31 cm (21 weeks, 3 days) Humerus length (HL): 3.47 cm (21 weeks, 6 days) Femur length: 3.51 cm (21 weeks, 1 day) HC/AC: 1.15 (1.06-1.25) FL/BPD: 71.05 (71-87%) FL/AC: 21.52 (20-24%) MATERNAL ANATOMY: Cervix: The cervix is closed measuring 4.5 cm in length. IMPRESSION: 1. Viable dichorionic/diamniotic twin intrauterine gestation with growth for fetus B concordant with dates. Estimated weight of 408 +/- 60 g (49.2 %). 2. No gross abnormalities are detected. 3. Normal amniotic fluid. 4. The cervix is closed measuring 4.5 cm in length. [facility] NAME: RYLIE JANEFELICIARadiology Department PHYS: Danny Bello MD [address] : 1990 AGE: 30 SEX: [place] [address] LOC: ScoobyRAD PHONE #: [phone] EXAM DATE: 03/27/2021 STATUS: REG [place] #: [phone] RAD NO: Page 3 Signed Report (CONTINUED) Patient Name: KIRSTEN JANE Unit No: [id number] EXAMS: CPT CODE: [id number] [place] PRG AFT 1ST [place] [address] <Continued> at 1500 Reported and signed by: Иван Duran MD CC: Technologist: Pat Woodward RDMS Probe: Trnscrbd D/ (1500) GCD.CPS Orig Print D/T: S: 03/27/2021 (1501) [facility] NAME: KIRSTEN JANE Radiology Department PHYS: Danny Bello MD [address] : 1990 AGE: 30 SEX: [place] [address] LOC: ScoobyRAD PHONE #: [phone] EXAM DATE: 03/27/2021 STATUS: REG CLI FAX #: [phone] RAD NO: Page 4 Signed Report Patient Name: KIRSTEN JANE Unit No: [id number] EXAMS: CPT CODE: [id number] US PRG AFT 1ST [place] [address] <Continued> [facility] NAME: KIRSTEN JANE Radiology Department PHYS: Danny Bello MD [address] : 1990 AGE: 30 SEX: F [place] [address] LOC: ScoobyRAD PHONE #: [phone] EXAM DATE: 03/27/2021 STATUS: REG CLI FAX #: [phone] RAD NO: Page 5 Signed Report- US PREG AFTER [id number] 00:00:00 [facility] : 1990 Sex: F Patient Name: KIRSTEN JANE Unit No: [id number] EXAMS: CPT CODE: [id number] US PREG AFTER TRI 96352 PROCEDURE INFORMATION: Exam: US After First Trimester, Transabdominal Exam date and time: 03/27/2021 10:46 AM Age: 30 years old Clinical indication: Screening exam; Routine US, uterus; Additional info: Anatomy LABS AND CLINICAL REPORTS: Gestational age (Established): 21 weeks, 0 days 08/07/2021 Estimated due date (Established): 08/07/2021 TECHNIQUE: Imaging protocol: Real-time transabdominal obstetrical ultrasound of the maternal pelvis and a second or third trimester with image documentation. COMPARISON: OT US PREG 1ST TRIMTR 12/18/2020 9:02 PM FINDINGS: Number of fetuses: 2 Multifetal identity: Fetus A Gestation: Twin, viable intrauterine gestation. heart rate: 143 bpm presentation: Vertex (maternal left) Placenta: Anterior placenta, grade 1, without previa or retroplacental hemorrhage Amniotic fluid: Amniotic fluid is normal for gestational age. ANATOMY: midline falx: Unremarkable cerebellum: Unremarkable lateral ventricles: Unremarkable cisterna magna: Unremarkable choroid plexus: Unremarkable upper lip and nose: Unremarkable heart four-chamber view, heart size and position: Four-chamber heart visualized with left cardiac apex. Unremarkable LVOT. Limited RVOT by position. kidneys: Unremarkable stomach: Unremarkable. Normal situs. urinary bladder: Unremarkable spine: Unremarkable Umbilical cord insertion site into the abdomen: Unremarkable cord insertion Umbilical cord vessel number: 3 vessel cord arms and hands: Unremarkab le legs and feet: Unremarkable external genitalia: Unremarkable BIOMETRY: Estimated due date (AUA): 08/04/2021 Gestational age (AUA): 21 weeks, 3 days Estimated weight: 411 +/- 60 g [facility] NAME: KIRSTEN JANE Radiology Department PHYS: Danny Bello MD [address] : 1990 AGE: 30 SEX: F [place], [place] [address] LOC: FBreRAD PHONE #: [phone] EXAM DATE: 03/27/2021 STATUS: REG CLI FAX #: [phone] RAD NO: Page 1 Signed Report (CONTINUED) Patient Name: KIRSTEN JANE Unit No: [id number] EXAM S: CPT CODE: [id number] US PREG AFTER TRI 27047 <Continued> Estimated weight percentile: 50.1 % Biparietal diameter (BPD): 5.15 cm (21 weeks, 4 days) Head circumference (HC): 19.15 cm (21 weeks, 3 days) Abdominal circumference (AC): 15.72 cm (20 weeks, 6 days) Humerus length (HL): 3.38 cm (21 weeks, 3 days) Femur length (FL): 3.67 cm (21 weeks, 5 days) FL/AC: 23.35 (20-24%) FL/BPD: 71.26 (71-87%) HC/AC: 1.22 (1.06-1.25) MATERNAL: Uterus: Unremarkable. Cervix: The cervix is closed measuring 4.5 cm in length. Right ovary/adnexa: Ovary is obscured by overlying bowel gas. Left ovary/adnexa: Ovary is obscured by overlying bowel gas. Intraperitoneal space: No intraperitoneal free fluid. IMPRESSION: 1. Viable dichorionic/diamniotic twin intrauterine gestation with normal growth for fetus A concordant with dates. Estimated weight of 411+/- 60 g (50.1 %). 2. Limited RVOT visualization by position. Otherwise no gross anatomic abnormalities are detected. 3. The cervix is closed measuring 4.5 cm in length. 4.Normal amniotic fluid. PROCEDURE INFORMATION: Exam: US After First Trimester, Transabdominal. Additional Gestation Exam date and time: 03/27/2021 10:46 AM Age: 30 years old Clinical indication: Screening exam; Routine US, uterus; Additional info: Anatomy LABS AND CLINICAL REPORTS: Gestational age (Established): 21 weeks, 0 days 08/07/2021 Estimated due date (Established): 08/07/2021 TECHNIQUE: Imaging protocol: Real-time transabdominal obstetrical ultrasound of the maternal pelvis and a second or third trimester with image documentation. Additional Gestation was evaluated. COMPARISON: OT US PREG 1ST TRIMTR 12/18/2020 9:02 PM FINDINGS: Number of fetuses: 2 Multifetal identity: Fetus B Gestation: Twin, viable intrauterine gestation. heart rate: 135 bpm [facility] NAME: BUCK,KIRSTEN Radiology Department PHYS: Danny Bello MD [address] : 1990 AGE: 30 SEX: F [place], [place] [address] LOC: F.RAD PHONE #: [phone] EXAM DATE: 03/27/2021 STATUS: REG CLI FAX #: [phone] RAD NO: Page 2 SignedReport (CONTINUED) Patient Name: KIRSTEN JANE Unit No: [id number] EXAMS: CPT CODE: [id number] US PREG AFTER 1ST TRI 34046 <Continued> presentation: Vertex(maternal right) Placenta: Posterior placenta, grade 1, without previa or retroplacental hemorrhage. Amniotic fluid: Amniotic fluid is normal for gestational age. ANATOMY: midline falx: Unremarkable septum pellucidum: Unremarkable cerebellum:Unremarkable lateral ventricles: Unremarkable cisterna magna: UnremarkableFetal upper lip and nose: Unremarkable heart four-chamber view, heart size and position: Four-chamber heart identified with left cardiac apex. RVOT/LVOT are unremarkable Fe hussain kidneys: Unremarkable stomach: Unremarkable. Normal situs. urinary bladder: Unremarkable Spine: Unremarkable Umbilical cord insertion site into the abdomen:Normal cord insertion Umbilical cord vessel number: 3 Arms and hands: UnremarkableLegs and feet: Unremarkable external genitalia: Unremarkable BIOMETRY: Gestational age (AUA): 21 weeks, 2 days Estimated weight percentile: 49.2 % Estimated due date (AUA): 08/05/2021 Estimated weight: 408 +/- 60 g Biparietal diameter: 4.94 cm (21 weeks, 0 days) Head circumference: 18.8 cm (21 weeks, 1 day) Abdominal circumference: 16.31 cm (21 weeks, 3 days) Humerus length (HL): 3.47 cm (21 weeks, 6 days) Femur length: 3.51 cm (21 weeks, 1 day) HC/AC: 1.15 (1.06-1.25) FL/BPD: 71.05 (71-87%) FL/AC: 21.52 (20-24%) MATERNAL ANATOMY: Cervix: The cervix is closed measuring 4.5 cm in length. IMPRESSION: 1. Viable dichorionic/diamniotic twin intrauterine gestation with growth for fetus B concordant with dates. Estimated weight of 408 +/- 60 g (49.2 %). 2. No gross abnormalities are detected. 3. Normal amniotic fluid. 4. The cervix is closed measuring 4.5 cm in length. [facility] NAME: KIRSTEN JANERadiology Department PHYS: Danny Bello MD [address] : 1990 AGE: 30 SEX: F [place], [place] [address] LOC: Rachna.RAD PHONE #: [phone] EXAM DATE: 03/27/2021 STATUS: REG [place] #: [phone] RAD NO: Page 3 Signed Report (CONTINUED) Patient Name: KIRSTEN JANE Unit No: [id number] EXAMS: CPT CODE: [id number] US PREG AFTER TRI 77430 <Continued> at 1500 Reported and signed by: Иван Duran MD CC: Danny Wren Technologist: Pat Woodward RDMS Probe: Trnscrbd D/ (1500) GCD.CPS Orig Print D/T: S: 03/27/2021 (1501) [facility] NAME: KIRSTEN JANE Radiology Department PHYS: Danny Bello MD [address] : 1990 AGE: 30 SEX: F [place] [address] LOC: Rachna.RAD PHONE #: [phone] EXAM DATE: 03/27/2021 STATUS: REG CLI FAX #: [phone] RAD NO: Page 4 Signed Report Patient Name: KIRSTEN JANE Unit No: [id number] EXAMS: CPT C ODE: [id number] US PREG AFTER 1ST TRI 64197 <Continued> [facility] NAME: KIRSTEN JANE Radiology Department PHYS: Danny Bello MD [address] : 1990 AGE: 30 SEX: F [place] [address] LOC: Rachna.RAD PHONE #: [phone] EXAM DATE: 03/27/2021 STATUS: REG CLI FAX #: [phone] RAD NO: Page 5 Signed ReportBASIC METABOLIC [id number] 20:56:00 Test Item Value Reference Range Interpretation Comments SODIUM (test code = NA) 140 mEq/L 135-145 N POTASSIUM (test code = K) 3.4 mEq/L 3.5-5.0 L CHLORIDE (test code = CL) 105 mEq/L 100-115 N CARBON DIOXIDE (test code = CO2) 27 mEq/L 22-31 N ANION GAP (test code = GAP) 11.90 10-20 N GLUCOSE (test code = GLU) 92 mg/dL 65-110 N BLOOD UREA NITROGEN (test code = 11 mg/dL 7-18 N BUN) GLOMERULAR FILTRATION RATE (test 145 ml/min >60 N code = GFR) CREATININE (test code = CREAT) 0.5 mg/dL 0.5-1.0 N CALCIUM (test code = CA) 8.8 mg/dL 8.4-10.2 N HCG [id number] 20:31:00 Test Item Value Reference Range Interpretation Comments HCG SERUM (test 403522 INTERPRETATI ON:VALUES BETWEEN code = HCG) 15-20 milliInte rnational units/mL NEED T O BERETESTED WITHIN 48 HOURS . All units for these ranges ar e in milliInternatio nalunits/mL0-1 WK AFTER CONCEP TION 0-50 1-2 W KS AFTER CONCEPTION 40-3002-3 WKS A FTER CONCEPTION 100-1 ,0003-4 WKS AFTER CONCEPTIO N 500-6,0001-2 MO NTHS AFTER CONCEPTION 5,000-200,0002- 3 MONTHS AFTER CONCEPTION 10,000-100,0002 ND TRIMESTER 3,000-50,0003RD TRIMESTER 1 ,000-50,000 SPECIMENS WITH AN HCG LEVEL FROM 0-6 milliInternatio nalunits/mL SHOULD BE CONSI DERED NEGATIVE CBC W/AUTO [id number] 20:24:00 Test Item Value Reference Range Interpretation Comments WHITE BLOOD CELL (test code = WBC) 8.3 K/mm3 6.5-12.3 N RED BLOOD CELL (test code = RBC) 3.98 M/mm3 3.51-4.69 N HEMOGLOBIN (test code = HGB) 11.9 g/dL 10.1-13.8 N HEMATOCRIT (test code = HCT) 35.7 % 32.5-41.8 N MEAN CELL VOLUME (test code = MCV) 89.7 fL 84.6-96.6 N MEAN CELL HGB (test code = MCH) 29.9 pg 27.3-33.9 N MEAN CELL HGB CONCETRATION (test 33.3 gm/dL 32.0-34.2 N code = MCHC) RED CELL DISTRIBUTION WIDTH (test 12.0 % 12.2-16.3 L code = RDW) PLATELET COUNT (test code = PLT) 260 K/mm3 134-363 N MEAN PLATELET VOLUME (test code = 10.9 fL 9.2-12.7 N MPV) NEUTROPHIL % (test code = NT%) 58.7 % 57.9-77.3 N LYMPHOCYTE % (test code = LY%) 28.9 % 14.5-29.7 N MONOCYTE % (test code = MO%) 9.1 % 3.6-10.2 N EOSINOPHIL % (test code = EO%) 2.9 % 0.0-3.0 N BASOPHIL % (test code = BA%) 0.2 % 0.1-0.9 N NEUTROPHIL # (test code = NT#) 4.9 K/mm3 LYMPHOCYTE # (test code = LY#) 2.4 K/mm3 MONOCYTE # (test code = MO#) 0.8 K/mm3 EOSINOPHIL # (test code = EO#) 0.24 K/mm3 BASOPHIL # (test code = BA#) 0.0 K/mm3 RBC MORPHOLOGY REQUIRED (test code NORMAL NORMAL = RBCM) PLATELET MORPHOLOGY REQUIRED (test NORMAL NORMAL code = PLTMR) UA RFLX MICR CULT IF [id number] 20:24:00 Test Item Value Reference Range Interpretation Comments UA COLOR (test code = YELLOW YELLOW COLU) UA APPEARANCE (test code Slightly-Cloudy CLEAR = APPU) UA GLUCOSE DIPSTICK (test NEGATIVE NEG code = DGLUU) UA BILIRUBIN DIPSTICK NEGATIVE NEG (test code = BILU) UA KETONE DIPSTICK (test TRACE NEG A code = KETU) UA SPECIFIC GRAVITY (test 1.028 1.001-1.035 N code = SGU) UA BLOOD DIPSTICK (test 3+ NEG A code = OLAMIDE) UA PH DIPSTICK (test code 5.0 5-9 = CARLOS) UA PROTEIN DIPSTICK (test 1+ NEG A code = PROU) UA UROBILINIOGEN DIPSTICK NEGATIVE mg/dL NEG (test code = URO) UA NITRITE DIPSTICK (test NEG NEG code = EDIE) UA LEUKOCYTE ESTERASE NEG NEG DIPSTICK (test code = LEUU) UA WBC (test code = WBCU) 3-5 #/hpf NONE SEEN A UA RBC (test code = RBCU) TOO NUMEROUS TO CNT NONE SEEN A #/hpf UA EPITHELIAL CELLS (test RARE #/HPF RARE-FEW code = EPIU) UA MUCUS (test code = 4+ NONE SEEN MUCU) Indication for culture: Suprapubic PainSpecimen Description: CLEAN CATCH- DUP AB/PEL/SC/[id number] 00:00:00 [facility] 1990 Sex: F Patient Name: KIRSTEN JANE Unit No: [id number] EXAMS: CPT CODE: [id number] DUP AB/PEL/SC/LTD 10176 PROCEDURE INFORMATION: Exam: US First Trimester, Transabdominal and US Duplex Artery or Vein, Ovaries, Limited Exam date and time: 12/18/2020 9:02 PM Age: 30 years old Clinical indication: Other: Cramping; complicated by abdominal or pelvic pain; Generalized abdominal pain; First trimester (<14 weeks 0 days); Gestational age or lmp: 7wks; ; Additional info: Bleeding, twins TECHNIQUE: Imaging protocol: Real-time transabdominal obstetrical ultrasound of the maternal pelvis and a first trimester , less than 14 weeks 0 days, with image documentation. Real-time duplex ultrasound scan of the arterial or venous flow of the ovaries with B-mode, color Doppler flow and spectral waveform analysis, limited Duplex. COMPARISON: No relevant prior studies available. FINDINGS: Gestation: Twin intrauterine . Embryonic/ heart rate: 138 bpm. Extra-embryonic membranes/Placenta: No subchorionic bleed. BIOMETRY: Gestational age (AUA): 7 weeks 1 day based on crown-rump length. E stimated due date (AUA): 08/05/2021 Mean sac diameter: 2.91 cm, 8 weeks 0 days. [place]-Rump length: 1.00 cm, 7 weeks 1 day. MATERNAL: Uterus: The uterus measures 13.5 x 7.1 x 6.7 cm. Right adnexa: The right ovary measures 5.3 x 2.2 x 2.5 cm. Color Doppler and spectral flow in the right ovary. Left adnexa: The left ovary measures 3.4 x 1.8 x 2.3 cm. Color Doppler spectral flow in theleft ovary. Intraperitoneal space: No intraperitoneal free fluid. PROCEDURE INFORMATION: Exam: US First Trimester, Transabdominal. Additional Gestation. Exam date and time: 12/18/2020 9:02 PM Age: 30 years old Clinical indication: Other: Cramping; complicated by abdominal or pelvic pain; Generalized abdominal pain; First trimester (<14 weeks 0 days); Gestational age or lmp: 7wks; ; Additional info: Bleeding, twins TECHNIQUE: Imaging protocol: Real- time transabdominal obstetrical ultrasound [facility] NAME: RYLIE JANELINDA Radiology Department PHYS: Neto Bates MD [address] : 1990 AGE: 30 SEX: F [place], [place] [address] LOC: ScoobyERS PHONE #: [phone] EXAM DATE: 12/18/2020 STATUS: REG ER FAX #: [phone] RAD NO: Page 1 Signed Report (CONTINUED) Patient Name: KIRSTEN JANE Unit No: [id number] EXAMS: CPT CODE: [id number] DUP AB/PEL/SC/LTD 65749<Continued> of the maternal pelvis and a first trimester with image documentation. Additional gestation was evaluated. COMPARISON: No relevant prior studies available. FINDINGS: GESTATION: Number of fetuses: 2 Multifetal identity: Fetus B Gestation: Intrauterine gestation. Yolk sac is unremarkable. Heart rate: 68 bpm. Amnionicity and Chorionicity: Although early, the appears to be dichorionic diamniotic. Extra-embryonic membranes/Placenta:No subchorionic bleed. BIOMETRY: Gestational age (AUA): 7 weeks 3 days. [place]-Rump length: 1.15 cm, 7 weeks 2 days. Mean sac diameter: 2.53 cm, 7 weeks 4 days. MATERNAL: Uterus: The uterus measures 13.5 x 7.1 x 6.7 cm. Right adnexa: The right ovary measures 5.3 x 2.2 x 2.5 cm. Color Doppler and spectral flow in the right ovary. Left adnexa: The left ovary measures 3.4 x 1.8 x 2.3 cm. Color Doppler spectral flow in the left ovary. IMPRESSION: US First Trimester, Transabdominal and US Duplex Artery or Vein, Ovaries, Limited Twin intrauterine gestations. Twin A: Estimated gestational age of 7 weeks 1 day. US First Trimester, Transabdominal. Additional Gestation. 1. Twin intrauterine gestations. Twin B: Estimated gestational age of 7 weeks 3 days. 2. The heart rate of Twin B is 68 bpm. This is low. Clinical correlation and follow-up are recommended. THIS REPORT CONTAINS FINDINGS THAT MAY BE CRITICAL TO PATIENT CARE. The findings were verbally communicated via t elephone conference at 9:59 PM CDT on 12/18/[address] Rae. The findings were acknowledged and understood. at 2212 Reported and signed by: Patrice Vang M.D. [place] [facility] NAME: RYLIE JANELINDA Radiology Department PHYS: Neto Bates MD [address] : 1990 AGE: 30 SEX: Rachna [place] [address] LOC: NOHEMI PHONE #: [phone] EXAMDATE: 12/18/2020 STATUS: REG ER FAX #: [phone] RAD NO: Page 2 Signed Report (CONTINUED) Patient Name: KIRSTEN JANE Unit No: [id number] EXAMS: CPT CODE: [id number] DUP AB/PEL/SC/LTD 02657 <Continued> CC: Neto Rae MD Technologist: Vibha Reinoso RDMS Probe: Trnscrbd D/ (2211) GCD.CPS Orig Print D/T: S: 12/18/2020 (2211) [facility] NAME: KIRSTEN JANE Radiology Department PHYS: Neto Bates MD [address] : 1990 AGE: 30 SEX: F [place], [place] [address] LOC: ScoobyERS PHONE #: [phone] EXAM DATE: 12/18/2020 STATUS: REG ER FAX #: [phone] RAD NO: Page 3 Signed Report Patient Name: KIRSTEN JANE Unit No: [id number] EXAMS: CPT CODE: [id number] DUP AB/PEL/SC/LTD 03363 <Continued> [facility] NAME: KIRSTEN JANE Radiology Department PHYS: Neto Bates MD [address] : 1990 AGE: 30 SEX: F [place], [place] [address] LOC: NOHEMI PHONE #: [phone] EXAM DATE: 12/18/2020 STATUS: REG ER FAX #: [phone] RAD NO: Page 4 Signed Report- US PRG 1ST TRI EA [id number] 00:00:00 [facility] 1990 Sex: F Patient Name: KIRSTEN JANE Unit No: [id number] EXAMS: CPT CODE: [id number] US PRG 1ST TRI EA ADD 13950 PROCEDURE INFORMATION: Exam: US First Trimester, Transabdominal and US Duplex Artery or Vein, Ovaries, Limited Exam date and time: 12/18/2020 9:02 PM Age: 30 years old Clinical indication: Other: Cramping; complicated by abdominal or pelvic pain; Generalized abdominal pain; First trimester (<14 weeks 0 days); Gestational age or lmp: 7wks; ; Additional info: Bleeding, twins TECHNIQUE: Imaging protocol: Real-time transabdominal obstetrical ultrasound of the maternal pelvis and a first trimester , less than 14 weeks 0 days, with image documentation. Real-time duplex ultrasound scan of the arterial or venous flow of the ovaries with B-mode, color Doppler flow and spectral waveform analysis, limited Duplex. COMPARISON: No relevant prior studies available. FINDINGS: Gestation: Twin intrauterine . Embryonic/ heart rate: 138 bpm. Extra-embryonic membranes/Placenta: No subchorionic bleed. BIOMETRY: Gestational age (AUA): 7 weeks 1 day based on crown-rump length. Estimated due date (AUA): 08/05/2021 Mean sac diameter: 2.91 cm, 8 weeks 0 days. [place]-Rump length: 1.00 cm, 7 weeks 1 day. MATERNAL: Uterus: The uterus measures 13.5 x 7.1 x 6.7 cm. Right adnexa: The right ovary measures 5.3 x 2.2 x 2.5 cm. Color Doppler and spectral flow in the right ovary. Left adnexa: The left ovary measures 3.4 x 1.8 x 2.3 cm. Color Doppler spectral flow in theleft ovary. Intraperitoneal space: No intraperitoneal free fluid. PROCEDURE INFORMATION: Exam: US First Trimester, Transabdominal. Additional Gestation. Exam date and time: 12/18/2020 9:02 PM Age: 30 years old Clinical indication: Other: Cramping; complicated by abdominal or pelvic pain; Generalized abdominal pain; First trimester (<14 weeks 0 days); Gestational age or lmp: 7wks; ; Additional info: Bleeding, twins TECHNIQUE: Imaging protocol: Real-time transabdominal obstetrical ultrasound [facility] NAME: KIRSTEN JANE Radiology Department PHYS: Neto Bates MD [address] : 1990 AGE: 30 SEX: F [place], [place] [address] LOC: NOHEMI PHONE #: [phone] EXAM DATE: 12/18/2020 STATUS: REG ER FAX #: [phone] RAD NO: Page 1 Signed Report (CONTINUED) Patient Name: KIRSTEN JANE Unit No: [id number] EXAMS: CPT CODE: [id number] US PRG 1ST TRI EA ADD 30393<Continued> of the maternal pelvis and a first trimester with image documentation. Additional gestation was evaluated. COMPARISON: No relevant prior studies available. FINDINGS: GESTATION: Number of fetuses: 2 Multifetal identity: Fetus B Gestation: Intrauterine gestation. Yolk sac is unremarkable. Heart rate: 68 bpm. Amnionicity and Chorionicity: Although early, the appears to be dichorionic diamniotic. Extra-embryonic membranes/Placenta:No subchorionic bleed. BIOMETRY: Gestational age (AUA): 7 weeks 3 days. [place]-Rump length: 1.15 cm, 7 weeks 2 days. Mean sac diameter: 2.53 cm, 7 weeks 4 days. MATERNAL: Uterus: The uterus measures 13.5 x 7.1 x 6.7 cm. Right adnexa: The right ovary measures 5.3 x 2.2 x 2.5 cm. Color Doppler and spectral flow in the right ovary. Left adnexa: The left ovary measures 3.4 x 1.8 x 2.3 cm. Color Doppler spectral flow in the left ovary. IMPRESSION: US First Trimester, Transabdominal and US Duplex Artery or Vein, Ovaries, Limited Twin intrauterine gestations. Twin A: Estimated gestational age of 7 weeks 1 day. US First Trimester, Transabdominal. Additional Gestation. 1. Twin intrauterine gestations. Twin B: Estimated gestational age of 7 weeks 3 days. 2. The heart rate of Twin B is 68 bpm. This is low. Clinical correlation and follow-up are recommended. THIS REPORT CONTAINS FINDINGS THAT MAY BE CRITICAL TO PATIENT CARE. The findings were verbally communicated via telephone conference at 9:59 PM CDT on 12/18/[address] Rae. The findings were acknowledged and understood. at 2492 Reported and signed by: Patrice Vang M.D. [facility] NAME: KIRSTEN JANE Radiology Department PHYS: Neto Bates MD [address] : 1990 AGE: 30 SEX: F [place] [address] LOC: ScoobyERS PHONE #: [phone] EXAMDATE: 12/18/2020 STATUS: REG ER FAX #: [phone] RAD NO: Page 2 Signed Report (CONTINUED) Patient Name: KIRSTEN JANE Unit No: [id number] EXAMS: CPT CODE: [id number] US PRG 1ST TRI EA ADD 99249 <Continued> CC: Neto Rae MD Technologist: Vibha Reinoso RDMS Probe: Trnscrbd D/ (2211) GCD.CPS Orig Print D/T: S: 12/18/2020 (2211) [facility] NAME: KIRSTEN JANE Radiology Department PHYS: Neto Bates MD [address] : 1990 AGE: 30 SEX: F [place] [address] LOC: ScoobyERS PHONE #: [phone] EXAM DATE: 12/18/2020 STATUS: REG ER FAX #: [phone] RAD NO: Page 3 Signed Report Patient Name: KIRSTEN JANE Unit No: [id number] EXAMS: CPT CODE: [id number] US PRG 1ST TRI EA ADD 93676 <Continued> [facility] NAME: KIRSTEN JANE Radiology Department PHYS: Neto Bates MD [address] : 1990 AGE: 30 SEX: F [place] [address] LOC: ScoobyERS PHONE #: [phone] EXAM DATE: 12/18/2020 STATUS: REG ER FAX #: [phone] RAD NO: Page 4 Signed Report- US PREG EVAL 1ST [id number] [facility]00[facility] 1990 Sex: F Patient Name: KIRSTEN JANE Unit No: [id number] EXAMS: CPT CODE: [id number] US PREG EVAL 1ST TRIMTR 49520 PROCEDURE INFORMATION: Exam: US First Trimester, Transabdominal and US Duplex Artery or Vein, Ovaries, Limited Exam date and time: 12/18/2020 9:02 PM Age: 30 years old Clinical indication: Other: Cramping; complicated by abdominal or pelvic pain; Generalized abdominal pain; First trimester (<14 weeks 0 days); Gestational age or lmp: 7wks; ; Additional info: Bleeding, twins TECHNIQUE: Imaging protocol: Real-time transabdominal obstetrical ultrasound of the maternal pelvis and a first trimester , less than 14 weeks 0 days, with image documentation. Real-time duplex ultrasound scan of the arterial or venous flow of the ovaries with B-mode, color Doppler flow and spectral waveform analysis, limited Duplex. COMPARISON: No relevant prior studies available. FINDINGS: Gestation: Twin intrauterine . Embryonic/ heart rate: 138 bpm. Extra-embryonic membranes/Placenta: No subchorionic bleed. BIOMETRY: Gestational age (AUA): 7 weeks 1 day based on crown-rump length. Estimated due date (AUA): 08/05/2021 Mean sac diameter: 2.91 cm, 8 weeks 0 days. [place]-Rump length: 1.00 cm, 7 weeks 1 day. MATERNAL: Uterus: The uterus measures 13.5 x 7.1 x 6.7 cm. Right adnexa: The right ovary measures 5.3 x 2.2 x 2.5 cm. Color Doppler and spectral flow in the right ovary. Left adnexa: The left ovary measures 3.4 x 1.8 x 2.3 cm. Color Doppler spectral flow in theleft ovary. Intraperitoneal space: No intraperitoneal free fluid. PROCEDURE INFORMATION: Exam: US First Trimester, Transabdominal. Additional Gestation. Exam date and time: 12/18/2020 9:02 PM Age: 30 years old Clinical indication: Other: Cramping; complicated by abdominal or pelvic pain; Generalized abdominal pain; First trimester (<14 weeks 0 days); Gestational age or lmp: 7wks; ; Additional info: Bleeding, twins TECHNIQUE: Imaging protocol: Real-time transabdominal obstetrical ultrasound [facility] NAME: RYLIE JANELINDA Radiology Department PHYS: Neto Bates MD [address] : 1990 AGE: 30 SEX: F [place], [place] [address] LOC: NOHEMI PHONE #: [phone] EXAM DATE: 12/18/2020 STATUS: REG ER FAX #: [phone] RAD NO: Page 1 Signed Report (CONTINUED) Patient Name: KIRSTEN JANE Unit No: [id number] EXAMS: CPT CODE: [id number] US PREG EVAL 1ST TRIMTR 65523<Continued> of the maternal pelvis and a first trimester with image documentation. Additional gestation was evaluated. COMPARISON: No relevant prior studies available. FINDINGS: GESTATION: Number of fetuses: 2 Multifetal identity: Fetus B Gestation: Intrauterine gestation. Yolk sac is unremarkable. Heart rate: 68 bpm. Amnionicity and Chorionicity: Although early, the appears to be dichorionic diamniotic. Extra-embryonic membranes/Placenta:No subchorionic bleed. BIOMETRY: Gestational age (AUA): 7 weeks 3 days. [place]-Rump length: 1.15 cm, 7 weeks 2 days. Mean sac diameter: 2.53 cm, 7 weeks 4 days. MATERNAL: Uterus: The uterus measures 13.5 x 7.1 x 6.7 cm. Right adnexa: The right ovary measures 5.3 x 2.2 x 2.5 cm. Color Doppler and spectral flow in the right ovary. Left adnexa: The left ovary measures 3.4 x 1.8 x 2.3 cm. Color Doppler spectral flow in the left ovary. IMPRESSION: US First Trimester, Transabdominal and US Duplex Artery or Vein, Ovaries, Limited Twin intrauterine gestations. Twin A: Estimated gestational age of 7 weeks 1 day. US First Trimester, Transabdominal. Additional Gestation. 1. Twin intrauterine gestations. Twin B: Estimated gestational age of 7 weeks 3 days. 2. The heart rate of Twin B is 68 bpm. This is low. Clinical correlation and follow-up are recommended. THIS REPORT CONTAINS FINDINGS THAT MAY BE CRITICAL TO PATIENT CARE. The findings were verbally communicated via telephone conference at 9:59 PM CDT on 12/18/[address] Rae. The findings were acknowledged and understood. at 2212 Reported and signed by: Patrice Vang M.D. [facility] NAME: KIRSTEN JANE Radiology Department PHYS: Neto Bates MD [address] : 1990 AGE: 30 SEX: F [place], [place] [address] LOC: NOHEMI PHONE #: [phone] EXAMDATE: 12/18/2020 STATUS: REG ER FAX #: [phone] RAD NO: Page 2 Signed Report (CONTINUED) Patient Name: KIRSTEN JANE Unit No: [id number] EXAMS: CPT CODE: [id number] US PREG EVAL 1ST TRIMTR 01026 <Continued> CC: Neto Rae MD Technologist: Vibha Reinoso RDMS Probe: Trnscrbd D/ (2211) GCD.CPS Orig Print D/T: S: 12/18/2020 (2211) [facility] NAME: KIRSTEN JANE Radiology Department PHYS: Neto Bates MD [address] : 1990 AGE: 30 SEX: [place]achna [place], [place] [address] LOC: ScoobyERS PHONE #: [phone] EXAM DATE: 12/18/2020 STATUS: REG ER FAX #: [phone] RAD NO: Page 3 Signed Report Patient Name: KIRSTEN JANE Unit No: [id number] EXAMS: CPT CODE: [id number] US PREG EVAL 1ST TRIMTR 30463 <Continued> [facility] NAME: KIRSTEN JANE Radiology Department PHYS: Neto Bates MD [address] : 1990 AGE: 30 SEX: F [place] [address] LOC: ScoobyERS PHONE #: [phone] EXAM DATE: 12/18/2020 STATUS: REG ER FAX #: [phone] RAD NO: Page 4 Signed ReportCHEMISTRY MISCELLANEOUS [id number] 10:34:00 Test Item Value Reference Range Interpretation Comments CHEMISTRY TEST (test SEE REPORT RESULT: Abnormal Female code = TESTC) MICROARRAY RES ULT: arr(14)x3 [facility] Interpretation: Abnormal result . Trisomy 14detec alia. Rkghkzb59 is ge nerally incompatible wi th survival. Overall,trisomy is found inapproxi mately 45% of miscarri ages. Genetic certified rehabilitation counselor ing isrecommended jose alejandro perez the significanc e of this result. Re ferral to a localgenet ic counselormay be considered.Lab Note: The level of ma ternal cell contaminat ion detectedin this samplemay reduc e the ability to dete ct deletions/dupli cations andmosaicism. ANORA TO MARTHA Results faxed to [facility] [phone] on 09/01/20 by.LAB.ELB1.PRODUCTS OF [id number] 14:58:00 Test Item Value Reference Range Interpretation Comments PRODUCTS OF CONCEPTION (test code = POC) RUN DATE: 08/25/20 [facility] PAGE 1 RUN TIME: 1647 Specimen Inquiry RUN USER: INTERFACE ZENOBIA ENT: BUCK,KIRSTEN [facility] #: [id number] AGE/SX: 29/F ROOM: RE08/23/20REG DR: Danny Wren MD : [birth year] BED: DIS: STATUS: [facility] TLOC: SPEC #: [id number] RECD: 08/24/20 STATUS: ASHLEY REQ #: [id number] LULA: 08/23/20- SUBM DR: Danny Wren MD ENTERED: 08/24/20 SP TYPE: POC[ OTHR DR: ORDERED: LEVEL IV CODES: [id number] - ENDOMETRIUM, NO PROCEDURES: LEVEL IV (Incomplete) TISSUES: ENDOMETRIUM, NOS - POC CLINICAL HISTORY 29 year old, missed (mil) FINAL DIAGNOSIS Products of conception, suction curettage: - products of conception (placental villi, implantation site), decidua and gestational endometrium CPT: 71878 [facility]/d GROSS DESCRIPTION ANATOMIC SOURCE OF TISSUE (per Requisition): Products of conception The specimen is received in a formalin-filled container, labeled with the patient's name and designated "products of conception". The specimen consists of a Telfa pad and suction canister containing a 7 x 6 x 1.6 cm aggregate of diamond-pink to red-brown soft tissues. No parts are grossly identified. Warpman sections are submitted in A1 and A2. janett/mil 08/24/20 ---- Signed Priyanka Orta MD 08/25/20 1458 END OF REPORT URINALYSIS [id number] 15:01:00 Test Item Value Reference Range Interpretation Comments UA COLOR (test code = COLU) YELLOW YELLOW UA APPEARANCE (test code = CLEAR CLEAR APPU) UA GLUCOSE DIPSTICK (test code NEGATIVE NEG = DGLUU) UA BILIRUBIN DIPSTICK (test NEGATIVE NEG code = BILU) UA KETONE DIPSTICK (test code NEGATIVE NEG = KETU) UA SPECIFIC GRAVITY (test code 1.020 1.001-1.035 N = SGU) UA BLOOD DIPSTICK (test code = NEG NEG OLAMIDE) UA PH DIPSTICK (test code = 6.0 5-9 CARLOS) UA PROTEIN DIPSTICK (test code 2+ NEG A = PROU) UA UROBILINIOGEN DIPSTICK NEGATIVE mg/dL NEG (test code = URO) UA NITRITE DIPSTICK (test code NEG NEG = EDIE) UA LEUKOCYTE ESTERASE DIPSTICK NEG NEG (test code = LEUU) UA WBC (test code = WBCU) 0-2 #/hpf NONE SEEN UA RBC (test code = RBCU) 0-2 #/hpf NONE SEEN UA EPITHELIAL CELLS (test code RARE #/HPF RARE-FEW = EPIU) UA MUCUS (test code = MUCU) RARE NONE SEEN URINE SAMPLE: CLEAN CATCHCOVID 19 Asymptomatic IH [id number] 14:33:00 Test Item Value Reference Range Interpretation Comments COVID 19 NEGATIVE NEGATIVE This test has b een Asymptomatic IH AG authorize d only for the (test code = detection ofpro teins from COVNONPUIAG) SARS-CoV-2, not for any other viruses orpathogens. N egative results should be treated as presumptive andconfirmed wi th a molecular assay , if necessary for patientmanageme nt. Negative result s do not rule out COVID- 19 andshould not b e used as the sole basis for treatment orpat ient management deci sions, including infec tion controldecision s. Negative result s should be considered i n thecontext of a patient's recent exposure s, history and thepresence of clinical signs and symptoms consis tent withCOVID-19. T his test has not been FD A cleared or approved; th e test hasbeen authori patricia by FDA under an Emerge ncy Use Authorization(E UA) for use by laborato stephanie certified under the CLIA thatmeet the re quirements to perform mode rate, high or waivedcomple xity tests. This jackelin t is authorized for use at thePoint of Car e (POC), i.e., in patien t care settingsoperati ng under a CLIA Certificat e of Waiver, Certifi pranay ofCompliance, o r Certificate of Accreditation. This test is only authori zed for the duration of thedeclaration that circumstances e xist justifying theauthorizatio n of emergency use o f in vitro diagnostic test sfor detection and/o r diagnosis of CO VID-19 under Sdmtvgo75 4(b)(1) of the Act, 21 U.S .C. 360bbb-3(b)(1), unless theauthorizatio n is terminated or r evoked sooner. CBC W/AUTO [id number] 13:57:00 Test Item Value Reference Range Interpretation Comments WHITE BLOOD CELL (test code = WBC) 6.7 K/mm3 6.5-12.3 N RED BLOOD CELL (test code = RBC) 3.99 M/mm3 3.51-4.69 N HEMOGLOBIN (test code = HGB) 12.1 g/dL 10.1-13.8 N HEMATOCRIT (test code = HCT) 36.3 % 32.5-41.8 N MEAN CELL VOLUME (test code = MCV) 91.0 fL 84.6-96.6 N MEAN CELL HGB (test code = MCH) 30.3 pg 27.3-33.9 N MEAN CELL HGB CONCETRATION (test 33.3 gm/dL 32.0-34.2 N code = MCHC) RED CELL DISTRIBUTION WIDTH (test 12.1 % 12.2-16.3 L code = RDW) PLATELET COUNT (test code = PLT) 261 K/mm3 134-363 N MEAN PLATELET VOLUME (test code = 10.0 fL 9.2-12.7 N MPV) NEUTROPHIL % (test code = NT%) 60.0 % 57.9-77.3 N LYMPHOCYTE % (test code = LY%) 28.0 % 14.5-29.7 N MONOCYTE % (test code = MO%) 8.0 % 3.6-10.2 N EOSINOPHIL % (test code = EO%) 3.4 % 0.0-3.0 H BASOPHIL % (test code = BA%) 0.3 % 0.1-0.9 N NEUTROPHIL # (test code = NT#) 4.0 K/mm3 LYMPHOCYTE # (test code = LY#) 1.9 K/mm3 MONOCYTE # (test code = MO#) 0.5 K/mm3 EOSINOPHIL # (test code = EO#) 0.23 K/mm3 BASOPHIL # (test code = BA#) 0.0 K/mm3 RBC MORPHOLOGY REQUIRED (test code NORMAL NORMAL = RBCM) PLATELET MORPHOLOGY REQUIRED (test NORMAL NORMAL code = PLTMR) AB HIV 1 11:36:00 Test Item Value Reference Range Interpretation Comments AB HIV 1 2 (test code = NONREACTIVE INDEX NONREACTIVE [id number]) AB HIV 1 11:35:00 Test Item Value Reference Range Interpretation Comments AB HIV 1 2 (test code = NONREACTIVE INDEX NONREACTIVE [id number]) AG HEPATITIS B [id number] 07:10:00 Test Item Value Reference Range Interpretation Comments AG HEPATITIS B SURFACE (test code NONREACTIVE NONREACTIVE = HBSAG) IS CONSENT FORM SIGNED FOR HIV TESTING? YAB HEPATITIS C [id number] 07:10:00 Test Item Value Reference Range Interpretation Comments AB HEPATITIS C (test code = NONREACTIVE NONREACTIVE HCVAB) SIGNAL TO CUTOFF (test code = 0.10 <0.80 N CUTOFF) IS CONSENT FORM SIGNED FOR HIV TESTING? YAB [id number] 07:10:00 Test Item Value Reference Range Interpretation Comments AB TREPONEMA (test code = TREPAB) NONREACTIVE NONREACTIVE IS CONSENT FORM SIGNED FOR HIV TESTING? YAB HIV 1 07:10:00 Test Item Value Reference Range Interpretation Comments AB HIV 1 2 TEST NOT PERFORMED NONREACTIVE SEE OTHER (test code = REQPreviously r eported [id number]) result: A Edite d by: [email or web address] on 03/22/19:0544RI V12AB prev. reported as:A . . IS CONSENT FORM SIGNED FOR HIV TESTING? YHGB [id number] 06:31:00 Test Item Value Reference Range Interpretation Comments HEMOGLOBIN (test code = HGB) 9.9 g/dL 10.7-13.9 L HEMATOCRIT (test code = HCT) 29.3 % 32.1-42.1 L AG HEPATITIS B [id number] 12:39:00 Test Item Value Reference Range Interpretation Comments AG HEPATITIS B SURFACE (test code NONREACTIVE NONREACTIVE = HBSAG) IS CONSENT FORM SIGNED FOR HIV TESTING? YAB HEPATITIS C [id number] 12:39:00 Test Item Value Reference Range Interpretation Comments AB HEPATITIS C (test code = NONREACTIVE NONREACTIVE HCVAB) SIGNAL TO CUTOFF (test code = 0.10 <0.80 N CUTOFF) IS CONSENT FORM SIGNED FOR HIV TESTING? YAB [id number] 12:39:00 Test Item Value Reference Range Interpretation Comments AB TREPONEMA (test code = TREPAB) NONREACTIVE NONREACTIVE IS CONSENT FORM SIGNED FOR HIV TESTING? YAB HIV 1 12:39:00 Test Item Value Reference Range Interpretation Comments AB HIV 1 2 (test A NONREACTIVE Done by [facility]an[facility] code = [id number]) 4th Gen HIV Ag/Ab Combo Screen IS CONSENT FORM SIGNED FOR HIV TESTING? YCBC W/AUTO [id number] 10:28:00 Test Item Value Reference Range Interpretation Comments WHITE BLOOD CELL (test code = WBC) 6.3 K/mm3 6.6-12.1 L RED BLOOD CELL (test code = RBC) 3.68 M/mm3 3.45-5.01 N HEMOGLOBIN (test code = HGB) 11.6 g/dL 10.7-13.9 N HEMATOCRIT (test code = HCT) 34.5 % 32.1-42.1 N MEAN CELL VOLUME (test code = MCV) 94 fL 84.1-94.8 N MEAN CELL HGB (test code = MCH) 31.5 pg 27-35 N MEAN CELL HGB CONCETRATION (test 33.6 gm/dL 32.2-34.1 N code = MCHC) RED CELL DISTRIBUTION WIDTH (test 12.8 % 12.4-16.5 N code = RDW) PLATELET COUNT (test code = PLT) 192 K/mm3 133-385 N IMMATURE PLATELET FRACTION (test 0.0 % 0.0-10.8 N code = IPF) MEAN PLATELET VOLUME (test code = 11.8 fl 9.1-12.7 N MPV) NEUTROPHIL % (test code = NT%) 64.5 % 56.5-79.4 N LYMPHOCYTE % (test code = LY%) 22.6 % 14.3-34.3 N MONOCYTE % (test code = MO%) 10.1 % 5.1-10.4 N EOSINOPHIL % (test code = EO%) 2.1 % 0.1-3.0 N BASOPHIL % (test code = BA%) 0.2 % 0.1-1.0 N NEUTROPHIL # (test code = NT#) 4.1 K/mm3 LYMPHOCYTE # (test code = LY#) 1.4 K/mm3 MONOCYTE # (test code = MO#) 0.6 K/mm3 EOSINOPHIL # (test code = EO#) 0.13 K/mm3 BASOPHIL # (test code = BA#) 0.0 K/mm3 RBC MORPHOLOGY REQUIRED (test code NORMAL NORMAL = RBCM) PLATELET MORPHOLOGY REQUIRED (test NORMAL NORMAL code = PLTMR)
[2021-07-30] MEDS ORDERED: NA CHLORIDE 0.9% 2,000 ML ONE (12:17)
[2021-07-30] MEDS ORDERED: ACETAMINOPHEN 500 MG TAB ONE (12:17)
[2021-07-30 12:27] LABS: Urine Blood Negative (Negative); Urine Glucose Negative (Negative); Urine Protein 2+ (Negative)
[2021-07-30 12:30] LABS: Absolute Lymphocytes (CBC) 1.1 K/uL (0.7-4.9); Hematocrit 40.8 % (36.0-45.0); Lymphocytes % 10.5 % (15.3-44.8); MPV 7.9 fL (7.6-11.3); RBC Red Blood Cell Count 4.61 M/uL (3.86-4.86)
[2021-07-30 12:37] LABS: Urine Bacteria <20 /HPF (<20); Urine RBC <5 /HPF (NONE SEEN)
[2021-07-30] MEDS ORDERED: AMPICILLIN/SULBACTAM 3GM/VIAL ONE (12:39)
[2021-07-30] MEDS ORDERED: NA CHLORIDE 0.9% 100 ML IV ONE (12:39)
[2021-07-30 12:44] LABS: Protime INR 1.05
[2021-07-30 12:53] LABS: ALT/SGPT 19 U/L (12-78); AST/SGOT 20 U/L (15-37); Albumin 3.2 g/dL (3.4-5.0); Alkaline Phosphatase 139 U/L (45-117); BUN Blood Urea Nitrogen 10 mg/dL (7-18); Bicarbonate 26 mmol/L (21-32); Bilirubin Total 0.5 mg/dL (0.2-1.0); Glucose Level 82 mg/dL (74-106); Potassium 3.6 mmol/L (3.5-5.1); Protein, Total 7.6 g/dL (6.4-8.2); Sodium Level 136 mmol/L (136-145)
[2021-07-30 13:17] LABS: SARS-COV-2 RT PCR NEGATIVE (NEGATIVE)
--- NOTE | 2021-07-30 14:05 | RAD REPORT ---
EXAM DESCRIPTION: CT - Abdomen Pelvis W Contrast - 07/30/2021 1:47 pm CLINICAL HISTORY: Abdominal pain COMPARISON: none. TECHNIQUE: Computed axial tomography of the abdomen pelvis was obtained. 100 cc Isovue-300 was admin istered intravenously. Oral contrast was not requested which limits evaluation of bowel. All CT scans are performed using dose optimization technique as appropriate and may include automated exposure control or mA/KV adjustment according to patient size. FINDINGS: Some of the images are degraded by patient motion artifact The liver, spleen, pancreas, adrenal and kidneys appear unremarkable. There is no evidence of diverticulitis. 4 x 2.5 centimeter collection of air is present within the endometrium. Fluid is present within endom etrial canal. Small umbilical hernia IMPRESSION: Air and fluid within the endometrium. This is suspicious for indicate infection and shou ld be correlated clinically
--- NOTE | 2021-07-30 14:06 | RAD REPORT ---
EXAM DESCRIPTION: Vinicio Single View07/30/2021 1:40 pm CLINICAL HISTORY: cough COMPARISON: none FINDINGS: The lungs appear clear of acute infiltrate. The heart is normal size IMPRESSION: No acute abnormalities displayed
[2021-07-30] MEDS ORDERED: AMOX/K CLAV 875 MG TAB ONE ×2 (14:19→14:59)
--- NOTE | 2021-07-30 14:45 | EDPHYS ---
Physician Documentation [facility] Name: Cathy Watt Age: 30 yrs Sex: Female : 1990 Arrival Date: 07/30/2021 Time: 11:24 Bed 14 Private MD: ED Physician Ralph Uribe HPI: 07/30 13:39 This 30 yrs old Female presents to ER via Ambulatory with complaints of Fever, ceci Chills, Headache. 13:39 The patient reports fever, that was measured at 103 degrees Fahrenheit. Onset: The ceci symptoms/episode began/occurred 2 day(s) ago. Modifying factors: there are no obvious modifying factors. Associated signs and symptoms: Pertinent positives: abdominal pain. Severity of symptoms: At their worst the symptoms were mild in the emergency department the symptoms are unchanged. The patient has not experienced similar symptoms in the past. Historical: - Allergies: 12:07 No Known Allergies; ph - PMHx: 12:07 None; ph - Immunization history:: Adult Immunizations up to date. - Social history:: Smoking status: Patient denies any tobacco usage or history of. ROS: 13:39 Eyes: Negative for injury, pain, redness, and discharge, ENT: Negative for injury, ceci pain, and discharge, Neck: Negative for injury, pain, and swelling, Cardiovascular: Negative for chest pain, palpitations, and edema, Respiratory: Negative for shortness of breath, cough, wheezing, and pleuritic chest pain, Abdomen/GI: Negative for abdominal pain, nausea, vomiting, diarrhea, and constipation, : Negative for injury, bleeding, discharge, and swelling, MS/Extremity: Negative for injury and deformity, Skin: Negative for injury, rash, and discoloration, Neuro: Negative for headache, weakness, numbness, tingling, and seizure, Psych: Negative for depression, anxiety, suicide ideation, homicidal ideation, and hallucinations, Allergy/Immunology: Negative for hives, rash, and allergies, Endocrine: Negative for neck swelling, polydipsia, polyuria, polyphagia, and marked weight changes, Hematologic/Lymphatic: Negative for swollen nodes, abnormal bleeding, and unusual bruising. 13:39 Constitutional: Positive for body aches, chills, fatigue, fever, malaise. Exam: 13:39 Head/Face: Normocephalic, atraumatic. Eyes: Pupils equal round and reactive to light, ceci extra-ocular motions intact. Lids and lashes normal. Conjunctiva and sclera are non-icteric and not injected. Cornea within normal limits. Periorbital areas with no swelling, redness, or edema. ENT: Nares patent. No nasal discharge, no septal abnormalities noted. Tympanic membranes are normal and external auditory canals are clear. Oropharynx with no redness, swelling, or masses, exudates, or evidence of obstruction, uvula midline. Mucous membranes moist. Neck: Trachea midline, no thyromegaly or masses palpated, and no cervical lymphadenopathy. Supple, full range of motion without nuchal rigidity, or vertebral point tenderness. No Meningismus. Chest/axilla: Normal chest wall appearance and motion. Nontender with no deformity. No lesions are appreciated. Cardiovascular: Regular rate and rhythm with a normal S1 and S2. No gallops, murmurs, or rubs. Normal PMI, no JVD. No pulse deficits. Respiratory: Lungs have equal breath sounds bilaterally, clear to auscultation and percussion. No rales, rhonchi or wheezes noted. No increased work of breathing, no retractions or nasal flaring. Abdomen/GI: Soft, non-tender, with normal bowel sounds. No distension or tympany. No guarding or rebound. No evidence of tenderness throughout. Female : Normal external genitalia. Skin: Warm, dry with normal turgor. Normal color with no rashes, no lesions, and no evidence of cellulitis. MS/ Extremity: Pulses equal, no cyanosis. Neurovascular intact. Full, normal range of motion. Neuro: Awake and alert, GCS 15, oriented to person, place, time, and situation. Cranial nerves II-XII grossly intact. Motor strength 5/5 in all extremities. Sensory grossly intact. Cerebellar exam normal. Normal gait. Psych: Awake, alert, with orientation to person, place and time. Behavior, mood, and affect are within normal limits. 13:39 Back: pain, that is moderate, of the lumbar area, ROM is normal, normal spinal alignment noted, CVA tenderness, is absent. 15:20 ECG was reviewed by the Attending Physician. [facility] Vital Signs: 12:04 BP 108 / 70; Pulse 100; Resp 24; Temp 103.1; Pulse Ox 97% on R/A; Weight 79.38 kg; ph Height 5 ft. 2 in. (157.48 cm); 12:43 BP 101 / 62; Pulse 81; Resp 22; Temp 101.7(O); Pulse Ox 99% on R/A; ld1 13:29 BP 100 / 65; Pulse 73; Resp 18; Temp 99.7(O); Pulse Ox 97% on R/A; ld1 14:29 BP 103 / 63; Pulse 73; Resp 18; Pulse Ox 99% on R/A; ld1 12:04 Body Mass Index 32.01 (79.38 kg, 157.48 cm) ph MDM: 12:[address] [facility] 13:42 Differential diagnosis: viral Infection, bacterial infection, URI, bronchitis, ceci pneumonia UTI, gastroenteritis, Basilar Pneumonia Cholelithiasis. Data reviewed: vital signs, nurses notes, lab test result(s), radiologic studies, CT scan, plain films. Data interpreted: Pulse oximetry: on room air is 97 %. Test interpretation: by ED physician or midlevel provider: plain radiologic studies. Counseling: I had a detailed discussion with the patient and/or guardian regarding: the historical points, exam findings, and any diagnostic results supporting the discharge/admit diagnosis, lab results, radiology results. 14:43 ED course: DR LIN, NO CULTURES NEEDED , AUGMENTIN AND FOLLOW UP IN 24 HOURS. ceci 07/30 12:08 Order name: Blood Culture Adult (2) bp 07/30 12:08 Order name: CBC with Diff; Complete Time: 13:05 bp 07/30 12:08 Order name: CMP; Complete Time: 13:05 bp 07/30 12:08 Order name: Lactate; Complete Time: 13:05 bp 07/30 12:08 Order name: Protime (+inr); Complete Time: 13:05 bp 07/30 12:08 Order name: Ptt, Activated; Complete Time: 13:05 bp 07/30 12:08 Order name: Urine Culture bp 07/30 12:08 Order name: Urine Microscopic Only; Complete Time: 12:44 bp 07/30 12:12 Order name: COVID-19/FLU A+B (Document "Date of Onset" if Symptomatic); Complete Time: ss 13:38 07/30 12:27 Order name: Urine Dipstick-Ancillary; Complete Time: 12:44 EDMS 07/30 12:46 Order name: Urine --Ancillary (enter results); Complete Time: 13:38 eb 07/30 12:46 Order name: Glucose, Ancillary Testing; Complete Time: 13:05 EDMS 07/30 13:06 Order name: Chest Single View XRAY; Complete Time: 14:22 ceci 07/30 13:06 Order name: CT Abd/Pelvis - IV Contrast Only; Complete Time: 14:22 ceci 07/30 12:08 Order name: Accucheck; Complete Time: 12:38 bp 07/30 12:08 Order name: Cardiac monitoring; Complete Time: 12:29 bp 07/30 12:08 Order name: EKG - Nurse/Tech; Complete Time: 12:29 bp 07/30 12:08 Order name: IV Saline Lock - Large Bore; Complete Time: 12:29 bp 07/30 12:08 Order name: Labs collected and sent; Complete Time: 12:29 bp 07/30 12:08 Order name: O2 Per Protocol; Complete Time: 12:29 bp 07/30 12:08 Order name: O2 Sat Monitoring; Complete Time: 12:29 bp 07/30 12:08 Order name: Urine Dipstick-Ancillary (obtain specimen); Complete Time: 12:29 bp 07/30 12:08 Order name: Urine Test (obtain specimen); Complete Time: 12:29 bp EC:20 Rate is 99 beats/min. Rhythm is regular. QRS [place] is Normal. ID interval is normal. QRS ceci interval is normal. QT interval is normal. No Q waves. T waves are Normal. No ST changes noted. Clinical impression: Normal ECG and No evidence of ischemia. Interpreted by me. Reviewed by me. Administered Medications: 12:16 Drug: Tylenol 1000 mg Route: PO; ph 12:29 Drug: NS 0.9% (30 ml/kg) 30 ml/kg Route: IV; Rate: bolus; Site: right antecubital; ld1 12:42 Drug: Unasyn (ampicillin-sulbactam) 3 grams Route: IVPB; Infused Over: 30 mins; Site: ld1 right antecubital; 14:18 Drug: Augmentin (Amoxicillin-Clavulanate) 875 mg Route: PO; ld1 14:50 Drug: Augmentin (Amoxicillin-Clavulanate) 875 mg Route: PO; ld1 Disposition Summary: 07/30/21 14:44 Discharge Ordered Location: Home [facility] Problem: [facility] Symptoms: have improved ceci Condition: Stable ceci Diagnosis - Fever, unspecified ceci - Abnormal uterine and vaginal bleeding, unspecified - endometritis ceci Followup: [facility] - With: Private Physician - When: 2 - 3 days - Reason: Recheck today's complaints, Continuance of care, Re-evaluation by your physician Discharge Instructions: - Discharge Summary Sheet ceci - Endometritis ceci - Fever, Adult ceci - Fever, Adult, [id number] [facility] Forms: - Medication Reconciliation Form [facility] - Thank You Letter [facility] - Antibiotic Education [facility] - Prescription Opioid Use [facility] Prescriptions: - Augmentin 875-125 mg Oral Tablet - take 1 tablet by ORAL route every 12 hours for 10 days; 20 tablet; Refills: 0, ceci Product Selection Permitted Signatures: Dispatcher [employer] Ralph Sen MD MD cha Hall, Patricia, RN RN ph Peltier, Brian RN RN Fiona Rain RN RN ld1
--- NOTE | 2021-07-30 14:45 | ER ---
Nurse's Notes [facility] Name: Cathy Watt Age: 30 yrs Sex: Female : 1990 Arrival Date: 07/30/2021 Time: 11:24 Bed 14 Private MD: Diagnosis: Fever, unspecified;Abnormal uterine and vaginal bleeding, unspecified-endometritis Presentation: 07/30 12:04 Chief complaint: Patient states: Vaginal 2 weeks ago w/ no complications, c/o ph chills, fever, headache, and low back pain since yesterday. States that vaginal bleeding has stopped, reports yellowish vaginal d/c. Coronavirus screen: Vaccine status: Patient reports receiving the 2nd dose of the covid vaccine. Ebola Screen: No symptoms or risks identified at this time. Initial Sepsis Screen: Does the patient meet any 2 criteria? RR > 20 per min. Temp <36.0*C (96.8*F)) or > 38.3*C (100.9*F). HR > 90 bpm. Does the patient have a suspected source of infection? Yes: Dysuria/Frequency/Urgency/UTI Other: recent . Risk Assessment: Do you want to hurt yourself or someone else? Patient reports no desire to harm self or others. Onset of symptoms was July 30, 2021. 12:04 Method Of Arrival: Ambulatory ph 12:04 Acuity: MADAI 2 ph Triage Assessment: 12:08 General: Appears in no apparent distress. uncomfortable, Behavior is calm, cooperative, ph appropriate for age, Reports chills for fever for. Pain: Complains of pain in low back area. Neuro: Level of Consciousness is awake, alert, obeys commands, Oriented to person, place, time, situation. Respiratory: Airway is patent Respiratory effort is even, unlabored. Derm: Skin is intact. 14:57 Headache History: Denies prior headaches. Pain: Also complains of no other associated ld1 symptoms. Historical: - Allergies: 12:07 No Known Allergies; ph - PMHx: 12:07 None; ph - Immunization history:: Adult Immunizations up to date. - Social history:: Smoking status: Patient denies any tobacco usage or history of. Screenin:43 Abuse screen: Denies threats or abuse. Denies injuries from another. Nutritional ld1 screening: No deficits noted. Tuberculosis screening: No symptoms or risk factors identified. Fall Risk None identified. Assessment: 12:43 General: Appears in no apparent distress. comfortable, Behavior is calm, cooperative, ld1 appropriate for age. Pain: Complains of pain in right lower quadrant and left lower quadrant Pain does not radiate. Pain currently is 7 out of 10 on a pain scale. Quality of pain is described as crampy, throbbing, Pain began gradually. Neuro: Level of Consciousness is awake, alert, obeys commands, Oriented to person, place, time, situation. Cardiovascular: Capillary refill < 3 seconds Patient's skin is warm and dry. Rhythm is sinus rhythm. Respiratory: Airway is patent Respiratory effort is even, unlabored. GI: Abdomen is round non-distended, Reports lower abdominal pain, cramping. : Reports discharge, bloody, green, vaginal bleeding that is light flow, spotty. EENT: No signs and/or symptoms were reported regarding the EENT system. Derm: Skin temperature is hot. Musculoskeletal: No signs and/or symptoms reported regarding the musculoskeletal system. 13:29 Reassessment: Patient appears in no apparent distress at this time. No changes from ld1 previously documented assessment. Patient and/or family updated on plan of care and expected duration. Pain level reassessed. Patient is alert, oriented x 3, equal unlabored respirations, skin warm/dry/pink. 14:29 Reassessment: Patient appears in no apparent distress at this time. Patient and/or ld1 family updated on plan of care and expected duration. Pain level reassessed. Patient states feeling better. Vital Signs: 12:04 BP 108 / 70; Pulse 100; Resp 24; Temp 103.1; Pulse Ox 97% on R/A; Weight 79.38 kg; ph Height 5 ft. 2 in. (157.48 cm); 12:43 BP 101 / 62; Pulse 81; Resp 22; Temp 101.7(O); Pulse Ox 99% on R/A; ld1 13:29 BP 100 / 65; Pulse 73; Resp 18; Temp 99.7(O); Pulse Ox 97% on R/A; ld1 14:29 BP 103 / 63; Pulse 73; Resp 18; Pulse Ox 99% on R/A; ld1 12:04 Body Mass Index 32.01 (79.38 kg, 157.48 cm) ph ED Course: 11:24 Patient arrived in ED. rg4 12:07 Triage completed. ph 12:08 Arm band placed on Patient placed in an exam room, on a stretcher, on quality assurance monitor final, ph on pulse oximetry. 12:14 Ralph Uribe MD is Attending Physician. ceci 12:29 COVID-19/FLU A+B (Document "Date of Onset" if Symptomatic) Sent. ld1 12:30 Urine Microscopic Only Sent. ld1 12:30 Urine Culture Sent. ld1 12:43 Patient has correct armband on for positive identification. Placed in gown. Bed in low ld1 position. Call light in reach. Side rails up X2. pvc monitor on. Pulse ox on. NIBP on. Door closed. Noise minimized. 12:43 COVID-19/FLU A+B (Document "Date of Onset" if Symptomatic) Sent. ld1 12:43 No provider procedures requiring assistance completed. Inserted saline lock: 20 gauge ld1 in right antecubital area, using aseptic technique. Blood collected. 13:29 Fiona Murguia, RN is Primary Nurse. ld1 13:42 Chest Single View XRAY In Process Unspecified. EDMS 13:49 CT Abd/Pelvis - IV Contrast Only In Process Unspecified. EDMS 14:[address] Cecy morejon with Dr. Uribe for patient eb consultation. 14:57 IV discontinued, intact, bleeding controlled, No redness/swelling at site. ld1 Administered Medications: 12:16 Drug: Tylenol 1000 mg Route: PO; ph 12:29 Drug: NS 0.9% (30 ml/kg) 30 ml/kg Route: IV; Rate: bolus; Site: right antecubital; ld1 12:42 Drug: Unasyn (ampicillin-sulbactam) 3 grams Route: IVPB; Infused Over: 30 mins; Site: ld1 right antecubital; 14:18 Drug: Augmentin (Amoxicillin-Clavulanate) 875 mg Route: PO; ld1 14:50 Drug: Augmentin (Amoxicillin-Clavulanate) 875 mg Route: PO; ld1 Outcome: 14:44 Discharge ordered by . [facility] 14:57 Discharged to home ambulatory, with family. ld1 14:57 Condition: stable 14:57 Discharge instructions given to patient, family, Instructed on discharge instructions, follow up and referral plans. medication usage, Demonstrated understanding of instructions, follow-up care, medications, Prescriptions given X 1. 14:57 Patient left the ED. ld1 15:28 Patient left the ED. Signatures: Dispatcher [employer] EDMI Ralph Uribe MD MD cha Smirch, Shelby, DONN RN Marina Fortune RN RN sander Redmond, Sol 4 Avelina Velez Lauren, RN RN ld1
[2021-07-30 15:06] VITALS: TEMP 99.7
[2021-07-30 15:07] VITALS: BP 103/63; O2SAT 99
--- NOTE | 2021-07-31 08:58 | EKG ---
Test Date: 2021-07-30 Test Time: 12:15:01 Bite Block Maker: NEY MEASUREMENT RESULTS: Intervals: Rate: 99 NC: 118 QRSD: 78 QT: 340 QTc: 436 [employer]: P: 45 NC: 118 QRS: 12 T: 27 INTERPRETIVE STATEMENTS: Normal sinus rhythm Normal ECG No previous ECG available for comparison Electronically Signed On 07-31-21 08:56:26 CDT by Hunter Covington
== END 2021-07-30 15:28 | disposition home or self-care (01) ==
LOC: ER 11:22
DX: R50.9 Fever, unspecified (principal); N71.9 Inflammatory disease of uterus, unspecified; Z20.822 Contact with and (suspected) exposure to COVID-19
CPT/HCPCS: 93005; 87040 ×2; 87088; 85025; 87086; 36415; 81025; 85610; 82947; 83605; 85730; 80053; 0240U; 74177; 71045; 96375; 96374; 99284; Q9967; J7030; J0295; 81003; 81015

== ENCOUNTER 2021-08-15 11:50 | Emergency (ER) | payer OTHER ==
--- OUTSIDE RECORDS SUMMARY | 2021-08-15 11:54 | XMS REPORT | Continuity of Care Document ---
:1990 Author Organization [facility] t Address [address] [place] [address] Care Team Providers Name Role Phone Danny [...] [facility] h TINGLING,DIZ 05-01 [facility] derived ZINESS,CARVER 00:00: [facility] [place] avocado FA Active U SWELLIMNG, [facility] NUMBNESS- 2 [facility] THROAT/MOUTH 00:00: [facility] [place] avocado FA Active U [facility] 6-01 [facility] 00:00: [facility] [place] SEAFOOD DA Active SV HEADACHE, [facility] SHAKING,NUMB 08-23 [facility] NESS 00:00: [facility] THROAT/MOUTH [facility] [place] avocado FA Active U SWELLIMNG, [facility] NUMBNESS- 6 [facility] THROAT/MOUTH 00:00: [facility] [place] No Known DA Active U 2018-03 [facility] Allergie 2- Clear s 00:00: [address] No Known DA Active U 2018-03 [facility] Allergie 2-28 [facility] s 00:00: [facility] [place] Medications This patient has no known medications. Procedures Procedure Date / Time Performed Performing Clinician Sour e [id number] 2021-07-15 00:00:00 [facility] [id number] 2021-07-15 00:00:00 [facility] [id number] 2021-07-15 00:00:00 [facility] [id number] 2021-07-15 00:00:00 [facility] [id number] 2021-07-15 00:00:00 [facility] [id number] 2021-07-15 00:00:00 [facility] Encounters Start End Encounter Admission Attending Care Care Encounter Source Date/Time Date/Time Type Type Clinicians Facility Department ID 2021-05-01 Inpatient MATTHEW Wren [id number] [facility] 01:11:00 Danny 55 [facility] 2021-03-27 Outpatient MATTHEW Wren [id number] [facility] 15:01:13 Danny 11 [facility] 2020-12-18 Inpatient [facility] KARLIE [id number] [facility] 18:42:00 [id number] [facility] 2021-07-14 2021-07-16 Inpatient EM MATTHEW Wren OB [id number] [facility] 23:57:00 20:56:00 Danny [id number] [facility] 2021-07-14 2021-07-16 Inpatient EM Brettcato, [facility] OBPP [id number] [facility] 23:57:00 20:56:00 Danny 17 [facility] [place] 2021-05-01 2021-05-05 Inpatient EL Brettcato, [facility] OBANTE [id number] [facility] 01:59:00 12:24:00 Danny 66 [facility] [place] 2021-05-01 2021-05-05 Inpatient EL Aurao, [facility] OBANTE [id number] [facility] 01:59:00 12:24:00 Danny [id number] [facility] [place] 2021-03-27 2021-03-27 Outpatient EM Brettcato, [facility] RADI [id number] [facility] 10:20:00 10:20:00 Danny [id number] [facility] [place] 2021-03-20 2021-03-20 Inpatient EM Aurao, [facility] RADI [id number] [facility] 11:00:00 11:00:00 Danny [id number] [facility] [place] 2021-02-12 2021-02-12 Emergency E MARILEE BL MHBL 7501 BL 16:19:00 21:52:00 , MK 2020-12-18 2020-12-18 Emergency EM Butch, [facility] [id number] [facility] 18:42:00 22:58:00 Analysa 47 [facility] [place] 2020-10-01 2020-10-01 Emergency E JAYJAY, MHBL MHBL 7500 MHBL 16:03:00 18:52:00 ORIANA 2020-08-26 2020-08-26 Outpatient Maccato, [facility] SILVIA [id number] [facility] 16:15:00 16:15:00 Danny [id number] [facility] [place] 2020-08-23 2020-08-23 Outpatient Maccato, [facility] SILVIA [id number] 3-20 [facility] 16:00:00 16:00:00 Danny [id number] [facility] [place] Results Test Description Test Time Test Comments Results Result Comments Source SURGICAL 2021-07-31 18:36:00 Test Item Value Reference Range Interpretation Comme nts SURGICAL RUN DATE: (test 07/31/21 [facility] PAGE 1 RUN TIME: 1835 code = Specimen Inquiry RUN USER: INTERFACE SR) PATIENT: KIRSTEN JANE LOC: YANETH U #: [id number] AGE/SX: 30/ F ROOM: [facility] RE07/14/21REG DR: Danny Wren MD : 90 BED: A DIS: 07/16/21 STATUS: DIS IN TLOC: SPEC #: [id number] RECD: STATUS: ASHLEY REQ #: [id number] LULA: 07/15/21- SUBM DR: Danny Wren MD ENTERED: 07/17/21 SP TYPE: SURGICAL OTHR DR: DOES _NOT KNOW ORDERED: ANATOMIC SPEC, SPEC TRACK, 62215/2 COPIES TO: DOES_NOT KNOW Danny Wren MD [address] [facility] [address] [place] [address] PROCEDURES: 77322 (07/17/21851) TISSUES: A. PLACENTA, THIRD TRIMESTER (28 + WEEKS) FINAL DIAGNOSIS TWIN PLACENTA, 36.5 WEEKS, DELIVERY:- Diamniotic, dichorionic sep arate twin placenta. PLACENTA A:- Third-trimester placenta, 422g.- Meconium stain.- Trivascular umbilica l cord.- Decidua without pathologic alteration.- No villitis or funisitis. PLACENTA B:- Third-trimester placenta, 492 g.- Trivascular umbilical cord.- Decidua and membrane without pathologic alteration.- No v illitis or funisitis. GROSS DESCRIPTION Received in formalin is a twin placenta with the separ ate placental discs weighing, 914grams (trimmed weight) in aggregate, with grossly thick shared membran es. There are novascular anastomosis present. Placenta A:The umbilical cord is 36 cm in total length, 1. 2 cm in diameter, is eccentrically inserted4 cm from the nearest placental edge, is white, glistening a nd has no abnormality. Thereis appropriate coiling. Cross sectioning demonstrates 3 vessels. The membranes areopaque. They have marginal attachment and are ruptured 3 cm from the placental edge . The CONTINUED ON NEXT PAGE RUN DATE: 07/31/21 [facility] PAGE 2 RUN TIME: 6 Specimen Inquiry RUN USER: INTERFACE SPEC #: [id number] PATIENT: KIRSTEN JANE #[id number] (Continued) GROSS DESCRIPTION (Continued) placental disk is ovoid, measures 20 x 15 x 2.2 cm, and weighs 422 grams without the membranes and cord. The surface is blue, with unremarkable vasculature. The maternalsur face is complete. Serial sections through the disk show normal red-brown beefyparenchyma. Placenta B :The umbilical cord is 30 cm in total length, 1.3 cm in diameter, is centrally inserted 6 cmfrom the nearest placental edge, is white, glistening and has no abnormality. There isappropriate coiling. Cross sectioning demonstrates 3 vessels. The membranes areopaque. The placental disk is discoi d, measures 19 x 19 x 2.2 cm, and weighs 492 gramswithout the membranes and cord. The surface is blue, with unremarkable vasculature. The maternal surface is complete. Serial sections through the disk show normal red-brownbeefy parenchyma. Sections code:A1: Shared MembraneA2: Placenta "A" Cor d and MembraneA3-A4: Placenta "A" placenta cross sections.A5: Placenta "B" Cord and MembraneA6-A7: Plac enta "B" placenta Cross Section JA Technical component performed at [email or web address], [place] [address] MICROSCOPIC DESCRIPTION The diagnosis is based upon microscopic examination. CLINICAL INFORMATION , 36.5 WEEKS, DI/DI, TWINS. Signed Eulogio Rodrigez 07/31/21 1836 END OF REPORT HGB [id number] 11:58:00 Test Item Value Reference Range Interpretation Comments HEMOGLOBIN (test code = HGB) 11.0 g/dL 10.1-13.8 N HEMATOCRIT (test code = HCT) 33.1 % 32.5-41.8 N AG HEPATITIS B [id number] 05:36:00 Test Item Value Reference Range Interpretation Comments AG HEPATITIS B SURFACE (test code NONREACTIVE NONREACTIVE = HBSAG) AB HEPATITIS C [id number] 05:36:00 Test Item Value Reference Range Interpretation Comments AB HEPATITIS C (test code = NONREACTIVE NONREACTIVE HCVAB) SIGNAL TO CUTOFF (test code = 0.06 <0.80 N CUTOFF) AB [id number] 05:36:00 Test Item Value Reference Range Interpretation Comments AB TREPONEMA (test code = TREPAB) NONREACTIVE NONREACTIVE AB HIV 1 05:36:00 Test Item Value Reference Range Interpretation Comments AB HIV 1 2 (test NONREACTIVE NONREACTIVE [facility] code = [id number]) 4th Gen HIV Ag/Ab Combo Screen PIH [id number] 00:40:00 Test Item Value Reference Range Interpretation Comments CREATININE (test code = CREAT) 0.5 mg/dL 0.5-1.0 N SGOT/AST (test code = AST) 25 units/L 15-37 N SGPT/ALT (test code = ALT) 15 units/L 12-78 N LACTIC DEHYDROGENASE(LDH) (test 236 units/L 81-234 H code = LDH) : *COMPREHENSIVE METABOLIC [id number] 00:40:00 Test Item Value Reference Range Interpretation [...] = ALKP) : *COVID 19 Asymptomatic IH [id number] 00:11:00 Test Item Value Reference Range Interpretation [...] or approved; th e test hasbeen authori zed by FDA under an Emerge ncy Use [...] and/o r diagnosis of CO VID-19 under Ceyizxn22 4(b)(1) of the Act, 21 U.S .C. 360bbb-3(b)(1), unless theauthorizatio n is terminated or r evoked sooner. CBC W/AUTO [id number] 00:09:00 Test Item Value Reference Range Interpretation [...] NORMAL NORMAL code = PLTMR) RUPTURE OF [id number] 08:24:00 Test Item Value Reference Range Interpretation Comments RUPTURE OF MEMBRANES (test code NON-RUPTURED = ROM) AG HEPATITIS B [id number] 03:20:00 Test Item Value Reference Range Interpretation Comments AG HEPATITIS B SURFACE (test code NONREACTIVE NONREACTIVE = HBSAG) AB HEPATITIS C [id number] 03:20:00 Test Item Value Reference Range Interpretation Comments AB HEPATITIS C (test code = NONREACTIVE NONREACTIVE HCVAB) SIGNAL TO CUTOFF (test code = 0.04 <0.80 N CUTOFF) AB [id number] 03:20:00 Test Item Value Reference Range Interpretation Comments AB TREPONEMA (test code = TREPAB) NONREACTIVE NONREACTIVE AB HIV 1 03:20:00 Test Item Value Reference Range Interpretation Comments AB HIV 1 2 (test NONREACTIVE NONREACTIVE Done by [facility] code = [id number]) 4th Gen HIV Ag/Ab Combo Screen COMPREHENSIVE METABOLIC [id number] 02:16:00 Test Item Value Reference Range Interpretation [...] code = ALKP) COVID 19 Asymptomatic IH [id number] 01:58:00 Test Item Value Reference Range Interpretation [...] and/o r diagnosis of CO VID-19 under Kgsueez06 4(b)(1) of the Act, 21 U.S .C. 360bbb-3(b)(1), unless theauthorizatio n is terminated or r evoked sooner. CBC W/AUTO [id number] 01:54:00 Test Item Value Reference Range Interpretation [...] (test NORMAL NORMAL code = PLTMR) URINALYSIS [id number] 01:54:00 Test Item Value Reference Range Interpretation [...] URINE SAMPLE: CLEAN CATCH- US PREG UT [id number] 00:00:00 [facility] : 1990 Sex: F Patient Name: KIRSTEN JANE Unit No: [id number] EXAMS: CPT CODE: [id number] US PREG UT TRANSVAGINAL 22063 PROCEDURE INFORMATION: Exam: US After First Trimester, [...] no abnormality is demonstrated. Twin B: [facility] NAME: KIRSTEN JANE Radiology Department PHYS: Danny Bello MD [address] : 1990 AGE: 30 SEX: F [place] [address] LOC: Ildefonso Bustillo PHONE #: [phone] EXAM DATE: 05/01/2021 STATUS: ADM IN FAX #: [phone] RAD NO: Page 1 Signed Report (CONTINUED) Patient Name: KIRSTEN JANE Unit No: [id number] EXAMS: CPT CODE: [id number] PREG UT TRANSVAGINAL 18741 <Continued> Presentation: Transverse maternal left Placenta: Posterior [...] Car MD CC: Technologist:Evi He RDMS Probe: [id number] Trnscrbd D/ (042) GCD.CPS Orig Print D/T: S: 05/01/2021 (0425) [facility] [place] [facility] NAME: KIRSTEN JANE Radiology Department PHYS: Danny Bello MD [address] : 1990 AGE: 30 SEX: F [place] [address] LOC: Ildefonso A PHONE #: [phone] EXAM DATE: 05/01/2021 STATUS: ADM IN FAX #: [phone] RAD NO: Page 2 Signed Report Patient Name: KIRSTEN JANE Unit No: [id number] EXAMS: CPT CODE: [id number] US PREG UT TRANSVAGINAL 03996 <Continued> [facility] NAME: KIRSTEN JANE Radiology Department PHYS: Danny Bello MD [address] : 1990 AGE: 30 SEX: F [place], [place] [address] LOC: Ildefonso A PHONE #: [phone] EXAM DATE: 05/01/2021 STATUS: ADM IN FAX #: [phone] RAD NO: Page 3 Signed Report- US FLW [id number] 00:00:00[facility] 1990 Sex: F Patient Name: KIRSTEN JANE Unit No: [id number] EXAMS: CPT CODE: [id number] [place] [address] PROCEDURE INFORMATION: Exam: US After First Trimester, [...] no abnormality is demonstrated. Twin B: [facility] [place] [facility] NAME: KIRSTEN JANE Radiology Department PHYS: Danny Bello MD [address] : 1990 AGE: 30 SEX: F [place], [place] [address] LOC: F.027 A PHONE #: [phone] EXAM DATE: 05/01/2021 STATUS: ADM IN FAX #: [phone] RAD NO: Page 1 Signed Report (CONTINUED) Patient Name: KIRSTEN JANE Unit No: [id number] EXAMS: CPT CODE: [id number] US FLW UP 14160 <Continued> Presentation: Transverse maternal left Placenta: Posterior [...] Orig Print D/T: S: 05/01/2021 (0425) [facility] NAME: KIRSTEN JANE Radiology Department PHYS: Danny Bello MD [address] : 1990 AGE: 30 SEX: F [place], [place] [address] LOC: F.027 A PHONE #: [phone] EXAM DATE: 05/01/2021 STATUS: ADM IN FAX #: [phone] RAD NO: Page 2 Signed Report Patient Name: KIRSTEN JANE Unit No: [id number] EXAMS: CPT CODE: [id number] US FLW UP [address] <Continued> [facility] NAME: KIRSTEN JANE Radiology Department PHYS: Danny Bello MD [address] : 1990 AGE: 30 SEX: F [place] [address]CVEC NO: [id number] LOC: Ildefonso Bustillo PHONE #: [phone] EXAM DATE: 05/01/2021 STATUS: ADM IN FAX #: [phone] RAD NO: Page 3 Signed Report- US FLW [id number] 00:00:00 [facility] : 1990 Sex: F Patient Name: KIRSTEN JANE Unit No: [id number] EXAMS: CPT CODE: [id number] US FLW UP 79193 PROCEDURE INFORMATION: Exam: US After First Trimester, [...] no abnormality is demonstrated. Twin B: [facility] NAME: KIRSTEN JANE Radiology Department PHYS: Danny Bello MD [address] : 1990 AGE: 30 SEX: F [place], [place] [address] LOC: F.027 A PHONE #: [phone] EXAM DATE: 05/01/2021 STATUS: ADM IN FAX #: [phone] RAD NO: Page 1 Signed Report (CONTINUED) Patient Name: KIRSTEN JANE Unit No: [id number] EXAMS: CPT CODE: [id number] US FLW UP [address]84 <Continued> Presentation: Transverse maternal left Placenta: Posterior [...] Orig Print D/T: S: 05/01/2021 (0425) [facility] NAME: KIRSTEN JANE Radiology Department PHYS: Danny Bello MD [address] : 1990 AGE: 30 SEX: F [place], [place] [address] [facility] PH[facility] #: [phone] EXAM DATE: 05/01/2021 STATUS: ADM IN FAX #: [phone] RAD NO: Page 2 Signed Report Patient Name: KIRSTEN JANE Unit No: [id number] EXAMS: CPT CODE: [id number] US FLW UP 16327 <Continued> [facility] NAME: BUCKRYLIE SAENZLINDA Radiology Department PHYS: Danny Bello MD [address] : 1990 AGE: 30 SEX: F [place], [place] [address]HRMG NO: [id number] LOC: F.027 A PHONE #: [phone] EXAM DATE: 05/01/2021 STATUS: ADM IN FAX #: [phone] RAD NO: Page 3 Signed Report- US PRG AFT [facility] [id number] 00:00:00 [facility] : 1990 Sex: F Patient Name: KIRSTEN JANE Unit No: [id number] EXAMS: CPT CODE: [id number] [place] 1ST [place] [address] PROCEDURE INFORMATION: Exam: US After First Trimester, [...] Estimated weight: 411 +/- 60 g [facility] NAME: KIRSTEN JANE Radiology Department PHYS: Danny Bello MD [address] : 1990 AGE: 30 SEX: F [place], [place] [address] LOC: Scooby[facility] PHONE #: [phone] EXAM DATE: 03/27/2021 STATUS: REG CLI FAX #: [phone] RAD NO: Page 1 Signed Report (CONTINUED) Patient Name: KIRSTEN JANE Unit No: [id number] EXAM S: CPT CODE: [id number] [place] AFT 1ST [place] [address] <Continued> Estimated weight percentile: 50.1 % Biparietal [...] intrauterine gestation. heart rate: 135 bpm [facility] NAME: KIRSTEN JANE Radiology Department PHYS: Danny Bello MD [address] : 1990 AGE: 30 SEX: F [place], [place] [address] LOC: F.RAD PHONE #: [phone] EXAM DATE: 03/27/2021 STATUS: REG CLI FAX #: [phone] RAD NO: Page 2 SignedReport (CONTINUED) Patient Name: KIRSTEN JANE Unit No: [id number] EXAMS: CPT CODE: [id number] [place] AFT 1ST [place] [address] <Continued> presentation: Vertex(maternal right) Placenta: Posterior placenta, [...] closed measuring 4.5 cm in length. [facility] NAME: KIRSTEN JANERadiology Department PHYS: Danny Bello MD [address] : 1990 AGE: 30 SEX: F [place], [place] [address] LOC: [facility]oby[facility] PHONE #: [phone] EXAM DATE: 03/27/2021 STATUS: REG CLIFAX #: [phone] RAD NO: Page 3 Signed Report (CONTINUED) Patient Name: RYLIE JANELINDA Unit No: [id number] EXAMS: CPT CODE: [id number] PR[place] AFT 1ST [place] [address] <Continued> at 1500 Reported and signed by: Иван Duran MD CC: Technologist: Pat Woodward RDMS Probe: Trnscrbd D/ (1500) GCD.CPS Orig Print D/T: S: 03/27/2021 (1501) [facility] NAME: KIRSTEN JANE Radiology Department PHYS: Danny Bello MD [address] : 1990 AGE: 30 SEX: F [place], [place] [address] LOC: F.RAD PHONE #: [phone] EXAM DATE: 03/27/2021 STATUS: REG CLI FAX #: [phone] RAD NO: Page 4 Signed Report Patient Name: KIRSTEN JANE Unit No: [id number] EXAMS: CPT CODE: [id number] [place] [address] <Continued> [facility] NAME: KIRSTEN JANE Radiology Department PHYS: Danny Bello MD [address] : 1990 AGE: 30 SEX: F [place], [place] [address] LOC: Rachna.RAD PHONE #: [phone] EXAM DATE: 03/27/2021 STATUS: REG CLI FAX #: [phone] RAD NO: Page 5 Signed Report- US PREG AFTER [id number] 00:00:00 [facility] : 1990 Sex: F Patient Name: KIRSTEN JANE Unit No: [id number] EXAMS: CPT CODE: [id number] US PREG AFTER TRI 47098 PROCEDURE INFORMATION: Exam: US After First Trimester, [...] Estimated weight: 411 +/- 60 g [facility] NAME: KIRSTEN JANE Radiology Department PHYS: Danny Bello MD [address] : 1990 AGE: 30 SEX: F [place], [place] [address] LOC: Sc[facility]oby[facility] PHONE #: [phone] EXAM DATE: 03/27/2021 STATUS: REG CLI FAX #: [phone] RAD NO: Page 1 Signed Report (CONTINUED) Patient Name: KIRSTEN JANE Unit No: [id number] EXAM S: CPT CODE: [id number] US PREG AFTER 1ST TRI 79412 <Continued> Estimated weight percentile: 50.1 % Biparietal [...] intrauterine gestation. heart rate: 135 bpm [facility] NAME: RYLIE JANELINDA Radiology Department PHYS: Danny Bello MD [address] : 1990 AGE: 30 SEX: F [place], [place] [address] LOC: NHUNG PHONE #: [phone] EXAM DATE: 03/27/2021 STATUS: REG CLI FAX #: [phone] RAD NO: Page 2 SignedReport (CONTINUED) Patient Name: KIRSTEN JANE Unit No: [id number] EXAMS: CPT CODE: [id number] US PREG AFTER 1ST TRI [address]1118 <Continued> presentation: Vertex(maternal right) Placenta: Posterior placenta, [...] closed measuring 4.5 cm in length. [facility] NAME: KIRSTEN JANERadiology Department PHYS: Danny Bello MD [address] : 1990 AGE: 30 SEX: F [place] [address] LOC: Rachna.RAD PHONE #: [phone] EXAM DATE: 03/27/2021 STATUS: REG CLIFAX #: [phone] RAD NO: Page 3 Signed Report (CONTINUED) Patient Name: KIRSTEN JANE Unit No: [id number] EXAMS: CPT CODE: [id number] US PREG AFTER 1ST TRI [address] <Continued> at 1500 Reported and signed by: Иван Duran MD CC: Danny Wren Technologist: Pat Woodward RDMS Probe: Trnscrbd D/ (1500) GCD.CPS Orig Print D/T: S: 03/27/2021 (1501) [facility] NAME: BUCKKIRSTEN SAENZ Radiology Department PHYS: Danny Bello MD [address] : 1990 AGE: 30 SEX: F [place] [address] LOC: Rachna.RAD PHONE #: [phone] EXAM DATE: 03/27/2021 STATUS: REG CLI FAX #: [phone] RAD NO: Page 4 Signed Report Patient Name: KIRSTEN JANE Unit No: [id number] EXAMS: CPT C ODE: [id number] US PREG AFTER 1ST TRI 63423 <Continued> [facility] NAME: BUCKKIRSTEN Radiology Department PHYS: Danny Bello MD [address] : 1990 AGE: 30 SEX: F [place] [address] LOC: NHUNG PHONE #: [phone] EXAM DATE: 03/27/2021 STATUS: REG CLI FAX #: [phone] RAD NO: Page 5 Signed ReportBASIC METABOLIC [id number] 20:56:00 Test Item Value Reference Range Interpretation [...] = CA) 8.8 mg/dL 8.4-10.2 N HCG [id number] 20:31:00 Test Item Value Reference Range Interpretation Comments HCG SERUM (test 745487 INTERPRETATI ON:VALUES BETWEEN code = HCG) 15-20 [...] SHOULD BE CONSI DERED NEGATIVE CBC W/AUTO [id number] 20:24:00 Test Item Value Reference Range Interpretation [...] = PLTMR) UA RFLX MICR CULT IF [id number] 20:24:00 Test Item Value Reference Range Interpretation [...] culture: Suprapubic PainSpecimen Description: CLEAN CATCH- DUP AB/PEL/SC/[id number] 00:00:00 [facility] : 1990 Sex: F Patient Name: KIRSTEN JANE Unit No: [id number] EXAMS: CPT CODE: [id number] DUP AB/PEL/SC/LTD 67456 PROCEDURE INFORMATION: Exam: US First Trimester, Transabdominal [...] diameter: 2.91 cm, 8 weeks 0 days. Faison-Rump length: 1.00 cm, 7 weeks 1 day. [...] protocol: Real- time transabdominal obstetrical ultrasound [facility] NAME: KIRSTEN JANE Radiology Department PHYS: Neto Bates MD [address] : 1990 AGE: 30 SEX: F [place] [address] LOC: NOHEMI PHONE #: [phone] EXAM DATE: 12/18/2020 STATUS: REG ER FAX #: [phone] RAD NO: Page 1 Signed Report (CONTINUED) Patient Name: KIRSTEN JANE Unit No: [id number] EXAMS: CPT CODE: [id number] DUP AB/PEL/SC/LTD 94724<Continued> of the maternal pelvis and a first [...] Gestational age (AUA): 7 weeks 3 days. Faison-Rump length: 1.15 cm, 7 weeks 2 days. [...] The findings were acknowledged and understood. at 9972 Reported and signed by: Patrice Vang M.D. [facility] NAME: KIRSTEN JANE Radiology Department PHYS: Neto Bates MD [address] : 1990 AGE: 30 SEX: F [place] [address] LOC: ScoobyERS PHONE #: [phone] EXAMDATE: 12/18/2020 STATUS: REG ER FAX #: [phone] RAD NO: Page 2 Signed Report (CONTINUED) Patient Name: KIRSTEN JANE Unit No: [id number] EXAMS: CPT CODE: [id number] DUP AB/PEL/SC/LTD 96872 <Continued> CC: Neto Rae MD Technologist: Vibha Reinoso RDMS Probe: Trnscrbd D/ (2211) GCD.CPS Orig Print D/T: S: 12/18/2020 (2211) [facility] NAME: KIRSTEN JANE Radiology Department PHYS: Neto Bates MD [address] : 1990 AGE: 30 SEX: F [place] [address] LOC: ScoobyERS PHONE #: [phone] EXAM DATE: 12/18/2020 STATUS: REG ER FAX #: [phone] RAD NO: Page 3 Signed Report Patient Name: KIRSTEN JANE Unit No: [id number] EXAMS: CPT CODE: [id number] DUP AB/PEL/SC/LTD 17196 <Continued> [facility] NAME: KIRSTEN JANE Radiology Department PHYS: Neto Bates MD [address] : 1990 AGE: 30 SEX: F [place] [address] LOC: ScoobyERS PHONE #: [phone] EXAM DATE: 12/18/2020 STATUS: REG ER FAX #: [phone] RAD NO: Page 4 Signed Report- US PRG 1ST TRI EA [id number] 00:00:00 [facility] : 1990 Sex: F Patient Name: KIRSTEN JANE Unit No: [id number] EXAMS: CPT CODE: [id number] US PRG 1ST [place] [address] PROCEDURE INFORMATION: Exam: US First Trimester, Transabdominal [...] diameter: 2.91 cm, 8 weeks 0 days. Faison-Rump length: 1.00 cm, 7 weeks 1 day. [...] Imaging protocol: Real-time transabdominal obstetrical ultrasound [facility]: KIRSTEN JANE Radiology Department PHYS: Neto Bates MD [address] : 1990 AGE: 30 SEX: F [place], [place] [address] LOC: ScoobyERS PHONE #: [phone] EXAM DATE: 12/18/2020 STATUS: REG ER FAX #: [phone] RAD NO: Page 1 Signed Report (CONTINUED) Patient Name: KIRSTEN JANE Unit No: [id number] EXAMS: CPT CODE: [id number] US PRG 1ST [place] [address]<Continued> of the maternal pelvis and a first [...] Gestational age (AUA): 7 weeks 3 days. Faison-Rump length: 1.15 cm, 7 weeks 2 days. [...] Reported and signed by: Patrice Vang M.D. [facility] NAME: KIRSTEN JANE Radiology Department PHYS: Neto Bates MD [address] : 1990 AGE: 30 SEX: F [place], [place] [address] LOC: NOHEMI PHONE #: [phone] EXAMDATE: 12/18/2020 STATUS: REG ER FAX #: [phone] RAD NO: Page 2 Signed Report (CONTINUED) Patient Name: KIRSTEN JANE Unit No: [id number] EXAMS: CPT CODE: [id number] US PRG 1ST TRI [place] ADD [id number] <Continued> CC: Neto Rae MD Technologist: Vibha Reinoso RDMS Probe: Trnscrbd D/ (2211) GCD.CPS Orig Print D/T: S: 12/18/2020 (2211) [facility] NAME: KIRSTEN JANE Radiology Department PHYS: Neto Baets MD [address] : 1990 AGE: 30 SEX: F [place], [place] [address] LOC: ScoobyERS PHONE #: [phone] EXAM DATE: 12/18/2020 STATUS: REG ER FAX #: [phone] RAD NO: Page 3 Signed Report Patient Name: KIRSTEN JANE Unit No: [id number] EXAMS: CPT CODE: [id number] US PRG 1ST TRI EA ADD [id number] <Continued> [facility] NAME: KIRSTEN JANE Radiology Department PHYS: Neto Bates MD [address] : 1990 AGE: 30 SEX: F [place], [place] [address] LOC: ScoobyERS PHONE #: [phone] EXAM DATE: 12/18/2020 STATUS: REG ER FAX #: [phone] RAD NO: Page 4 Signed Report- US PREG EVAL 1ST [id number] 00:00:00 [facility] 1990 Sex: F Patient Name: KIRSTEN JANE Unit No: [id number] EXAMS: CPT CODE: [id number] US PREG EVAL 1ST TRIMTR 10678 PROCEDURE INFORMATION: Exam: US First Trimester, Transabdominal [...] diameter: 2.91 cm, 8 weeks 0 days. Faison-Rump length: 1.00 cm, 7 weeks 1 day. [...] Imaging protocol: Real-time transabdominal obstetrical ultrasound [facility] NAME: KIRSTEN JANE Radiology Department PHYS: Neto Bates MD [address] : 1990 AGE: 30 SEX: F [place], [place] [address] LOC: ScoobyRAKAN PHONE #: [phone] EXAM DATE: 12/18/2020 STATUS: REG ER FAX #: [phone] RAD NO: Page 1 Signed Report (CONTINUED) Patient Name: KIRSTEN JANE Unit No: [id number] EXAMS: CPT CODE: [id number] US PREG EVAL 1ST TRIMTR 88893<Continued> of the maternal pelvis and a first [...] Gestational age (AUA): 7 weeks 3 days. Faison-Rump length: 1.15 cm, 7 weeks 2 days. [...] The findings were acknowledged and understood. at 8952 Reported and signed by: Patrice Vang M.D. [facility] NAME: KIRSTEN JANE Radiology Department PHYS: Neto Bates MD [address] : 1990 AGE: 30 SEX: F [place] [address] LOC: ScoobyERS PHONE #: [phone] EXAMDATE: 12/18/2020 STATUS: REG ER FAX #: [phone] RAD NO: Page 2 Signed Report (CONTINUED) Patient Name: KIRSTEN JANE Unit No: [id number] EXAMS: CPT CODE: [id number] US PREG EVAL 1ST TRIMTR 40625 <Continued> CC: Neto Rae MD Technologist: Vibha Reinoso RDMS Probe: Trnscrbd D/ (2211) GCD.CPS Orig Print D/T: S: 12/18/2020 (2211) [facility] NAME: KIRSTEN JANE Radiology Department PHYS: Neto Bates MD [address] : 1990 AGE: 30 SEX: F [place] [address] LOC: ScoobyERS PHONE #: [phone] EXAM DATE: 12/18/2020 STATUS: REG ER FAX #: [phone] RAD NO: Page 3 Signed Report Patient Name: KIRSTEN JANE Unit No: [id number] EXAMS: CPT CODE: [id number] US PREG EVAL 1ST TRIMTR 59239 <Continued> [facility] NAME: KIRSTEN JANE Radiology Department PHYS: Neto Bates MD [address] : 1990 AGE: 30 SEX: F [place] [address] LOC: Sc[facility]ERS PHONE #: [phone] EXAM DATE: 12/18/2020 STATUS: REG ER FAX #: [phone] RAD NO: Page 4 Signed ReportCHEMISTRY MISCELLANEOUS [id number] 10:34:00 Test Item Value Reference Range Interpretation Comments CHEMISTRY TEST (test SEE REPORT RESULT: Abnormal Female code = TESTC) MICROARRAY RES ULT: arr(14)x3 [facility] Interpretation: Abnormal result . Trisomy 14detec alia. Afawdel47 is ge nerally incompatible wi th survival. Overall,trisomy is found inapproxi mately 45% of miscarri ages. Genetic auto club travel counselor ing isrecommended jose alejandro perez the significanc e of this result. Re ferral to a localgenet ic counselormay be considered.Lab Note: The level of ma ternal cell contaminat ion detectedin this samplemay reduc e the ability to dete ct deletions/dupli cations andmosaicism. ANORA TO MARTHA Results faxed to [facility] [phone] on 09/01/20-632 by.LAB.ELB1.PRODUCTS OF [id number] 14:58:00 Test Item Value Reference Range Interpretation Comments PRODUCTS OF CONCEPTION (test code = POC) RUN DATE: 08/25/20 [facility] PAGE 1 RUN TIME: 1647 Specimen Inquiry RUN USER: INTERFACE ZENOBIA ENT: KIRSTEN JANE LOC: ScoobyU U #: [id number] AGE/SX: 29/F ROOM: RE08/23/20REG DR: Danny Wren MD : [birth year] BED: DIS: STATUS: [facility] TLOC: SPEC #: [id number] RECD: 08/24/20 STATUS: ASHLEY FORD #: [id number] LULA: 08/23/20- SUBM DR: Danny Wren MD ENTERED: 08/24/20 SP TYPE: POC[ OTHR DR: ORDERED: LEVEL IV CODES: [id number] - ENDOMETRIUM, NO PROCEDURES: LEVEL IV (Incomplete) TISSUES: ENDOMETRIUM, NOS - POC CLINICAL HISTORY 29 year old, missed (mil) FINAL DIAGNOSIS Products of conception, suction curettage: - products of conception (placental villi, implantation site), decidua and gestational endometrium CPT: 91570 [facility] GROSS DESCRIPTION ANATOMIC SOURCE OF TISSUE (per Requisition): Products of conception The specimen is received in a formalin-filled container, labeled with the patient's name and designated "products of conception". The specimen consists of a Telfa pad and suction canister containing a 7 x 6 x 1.6 cm aggregate of diamond-pink to red-brown soft tissues. No parts are grossly identified. 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 janett/mil 08/24/20 ---- Signed Priyanka Orta MD 08/25/20 1458 END OF REPORT URINALYSIS [id number] 15:01:00 Test Item Value Reference Range Interpretation [...] URINE SAMPLE: CLEAN CATCHCOVID 19 Asymptomatic IH [id number] 14:33:00 Test Item Value Reference Range Interpretation [...] and/o r diagnosis of CO VID-19 under Gvvevus32 4(b)(1) of the Act, 21 U.S .C. 360bbb-3(b)(1), unless theauthorizatio n is terminated or r evoked sooner. CBC W/AUTO [id number] 13:57:00 Test Item Value Reference Range Interpretation [...] 2 (test code = NONREACTIVE INDEX NONREACTIVE QXW55TR) AB HIV 1 11:35:00 Test Item Value Reference Range Interpretation Comments AB HIV 1 2 (test code = NONREACTIVE INDEX NONREACTIVE [id number]) AG HEPATITIS B [id number] 07:10:00 Test Item Value Reference Range Interpretation Comments AG HEPATITIS B SURFACE (test code NONREACTIVE NONREACTIVE = HBSAG) IS CONSENT FORM SIGNED FOR HIV TESTING? B HEPATITIS C [id number] 07:10:00 Test Item Value Reference Range Interpretation Comments AB HEPATITIS C (test code = NONREACTIVE NONREACTIVE HCVAB) SIGNAL TO CUTOFF (test code = 0.10 <0.80 N CUTOFF) IS CONSENT FORM SIGNED FOR HIV TESTING? YAB [id number] 07:10:00 Test Item Value Reference Range Interpretation Comments AB TREPONEMA (test code = TREPAB) NONREACTIVE NONREACTIVE IS CONSENT FORM SIGNED FOR HIV TESTING? YAB HIV 1 07:10:00 Test Item Value Reference Range Interpretation Comments AB HIV 1 2 TEST NOT PERFORMED NONREACTIVE SEE OTHER (test code = REQPreviously r eported [id number]) result: A Edite d by: [email or web address] on 03/22/19:0544HI V12AB prev. reported as:A . . IS CONSENT FORM SIGNED FOR HIV TESTING? YHGB [id number] 06:31:00 Test Item Value Reference Range Interpretation Comments HEMOGLOBIN (test code = HGB) 9.9 g/dL 10.7-13.9 L HEMATOCRIT (test code = HCT) 29.3 % 32.1-42.1 L AG HEPATITIS B [id number] 12:39:00 Test Item Value Reference Range Interpretation Comments AG HEPATITIS B SURFACE (test code NONREACTIVE NONREACTIVE = HBSAG) IS CONSENT FORM SIGNED FOR HIV TESTING? YAB HEPATITIS C [id number] 12:39:00 Test Item Value Reference Range Interpretation Comments AB HEPATITIS C (test code = NONREACTIVE NONREACTIVE HCVAB) SIGNAL TO CUTOFF (test code = 0.10 <0.80 N CUTOFF) IS CONSENT FORM SIGNED FOR HIV TESTING? YAB [id number] 12:39:00 Test Item Value Reference Range Interpretation Comments AB TREPONEMA (test code = TREPAB) NONREACTIVE NONREACTIVE IS CONSENT FORM SIGNED FOR HIV TESTING? YAB HIV 1 12:39:00 Test Item Value Reference Range Interpretation Comments AB HIV 1 2 (test A NONREACTIVE Done by [facility] code = [id number]) 4th Gen HIV Ag/Ab Combo Screen IS CONSENT FORM SIGNED FOR HIV TESTING? YCBC W/AUTO [id number] 10:28:00 Test Item Value Reference Range Interpretation [...]
[2021-08-15] MEDS ORDERED: ACETAMINOPHEN 500 MG TAB ONE (13:10)
[2021-08-15] MEDS ORDERED: NA CHLORIDE 0.9% 2,000 ML ONE (13:10)
[2021-08-15 13:36] LABS: Absolute Lymphocytes (CBC) 0.7 K/uL (0.7-4.9); Hematocrit 41.1 % (36.0-45.0); Lymphocytes % 10.2 % (15.3-44.8); MPV 8.6 fL (7.6-11.3); RBC Red Blood Cell Count 4.69 M/uL (3.86-4.86)
--- NOTE | 2021-08-15 13:37 | RAD REPORT ---
EXAM DESCRIPTION: RAD - Chest Pa And Lat (2 Views) - 08/15/2021 1:32 pm CLINICAL HISTORY: Cough COMPARISON: Portable 07/30/2021 TECHNIQUE: Frontal and lateral views of the chest were obtained. FINDINGS: The lungs are clear. Interstitial pattern is similar to comparison. Heart size is normal and central vasculature is within normal limits. No pleural effusion or pneumothorax seen. No acute bony finding noted. No aortic abnormality. IMPRESSION: No acute cardiopulmonary process.
[2021-08-15 13:42] LABS: Protime INR 1.02
[2021-08-15 13:48] LABS: Albumin 3.3 g/dL (3.4-5.0); Bilirubin Total 0.4 mg/dL (0.2-1.0); Potassium 3.6 mmol/L (3.5-5.1); Protein, Total 7.5 g/dL (6.4-8.2)
[2021-08-15 14:03] LABS: Urine Blood Trace-intact (Negative); Urine Glucose Negative (Negative); Urine Protein 1+ (Negative)
[2021-08-15 14:29] LABS: Urine Bacteria <20 /HPF (<20); Urine RBC <5 /HPF (NONE SEEN)
[2021-08-15] MEDS ORDERED: CEFTRIAXONE 1000 MG/VIAL ONE (14:49)
[2021-08-15] MEDS ORDERED: NA CHLORIDE 0.9% 100 ML ONE (14:49)
--- NOTE | 2021-08-15 17:10 | RAD REPORT ---
EXAM DESCRIPTION: CT - Abdomen Pelvis Wo Contrast - 08/15/2021 4:44 pm CLINICAL HISTORY: left flank pain, abdominal pain, fever COMPARISON: <Comparisons> TECHNIQUE: Axial [address] imaging of the abdomen and pelvis was performed without IV contrast. No IV contrast was given because of allergy, abnormal renal function, patient refusal or physician re quest. No oral contrast administered. All CT scans are performed using dose optimization technique as appropriate and may include automated exposure control or mA/KV adjustment according to patient size. FINDINGS: No suspicious findings in the lung bases. The liver, spleen and pancreas show no suspicious findings on non-contrast imaging. Gallbladder and b iliary tree are also without suspicious finding. No hydronephrosis or suspicious renal mass. No significant adrenal finding. Isodense renal masses an d pyelonephritis cannot be excluded in the absence of IV contrast. Urinary bladder is contracted limi ting detail. Uterus and ovaries show no suspicious findings. No dilated bowel loops or bowel wall thickening. No free air, free fluid or inflammatory stranding. No hernia, mass or bulky lymphadenopathy. No abdominal wall hematoma or mass. No suspicious bony findings. IMPRESSION: Non-contrast enhanced CT abdomen and pelvis imaging show no significant or suspicious fi nding. Full assessment is limited is the absence of IV contrast.
--- NOTE | 2021-08-15 18:17 | EDPHYS ---
Physician Documentation [facility] Name: Cathy Watt Age: 30 yrs Sex: Female : 1990 Arrival Date: 08/15/2021 Time: 11:51 Bed 16 Private MD: ED Physician Antoine Kunz HPI: 08/15 12:56 This 30 yrs old Female presents to ER via Ambulatory with complaints of Pain pm1 All Over. 12:56 The patient reports fever, on and off for the past 3 weeks. Associated signs and pm1 symptoms: Pertinent positives: Abdominal pain, left flank pain, sore throat, cough, bilateral breasts tenderness, headache. Severity of symptoms: in the emergency department the symptoms are unchanged For the past 3 weeks. The patient has been recently seen at the [facility] Emergency Department, Patient was seen in the ER about 1 month ago post delivery of her twins and diagnosed with endometritis Discharged home with antibiotics. Patient followed up with her OB and was told that her endometritis has resolved. Patient reports she was fine on Saturday and then her symptoms of abdominal pain, flank pain, sore throat, cough, mild breast tenderness and headache started yesterday. 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 - Social history:: Smoking status: Patient denies any tobacco usage or history of. ROS: 12:56 Constitutional: Negative for fever, chills, and weight loss. pm1 12:56 Eyes: Negative for injury, pain, redness, and discharge. 12:56 Cardiovascular: Negative for chest pain, palpitations, and edema. 12:56 : Negative for injury, bleeding, discharge, and swelling, MS/Extremity: Negative for injury and deformity, Skin: Negative for injury, rash, and discoloration. 12:56 Constitutional: Positive for body aches, fever. 12:56 ENT: Positive for sore throat, Negative for ear pain. 12:56 Respiratory: Positive for cough, Negative for shortness of breath. 12:56 Abdomen/GI: Positive for abdominal pain, Negative for nausea, vomiting, and diarrhea. 12:56 Back: Positive for flank pain, on the left. 12:56 Neuro: Positive for headache. 12:56 All other systems are negative. Exam: 12:56 Constitutional: This is a well developed, well nourished patient who is awake, alert, pm1 and in no acute distress. Head/Face: Normocephalic, atraumatic. 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 12:56 Cardiovascular: Exam negative for acute changes, Rate: normal, Rhythm: regular, Pulses: no pulse deficits are appreciated, Heart sounds: normal, Edema: is not appreciated. 12:56 Respiratory: Exam negative for acute changes, respiratory distress, shortness of breath, Breath sounds: are clear throughout. 12:56 Abdomen/GI: Inspection: obese Palpation: abdomen is soft and non-tender, in all quadrants. 12:56 Skin: Warm, dry with normal turgor. Normal color with no rashes, no lesions, and no pm1 evidence of cellulitis. MS/ Extremity: Pulses equal, no cyanosis. Neurovascular intact. Full, normal range of motion. 12:56 Neuro: Exam negative for acute changes, Orientation: is normal, Mentation: is normal, Motor: is normal, moves all fours, Sensation: is normal, no obvious gross deficits. Vital Signs: 12:39 BP 106 / 75; Pulse 97; Resp 40 S; Temp 102.3(O); Pulse Ox 100% on R/A; Weight 77.11 kg aa5 (R); Height 5 ft. 2 in. (157.48 cm) (R); 13:57 BP 117 / 74; Pulse 73; Resp 22; Pulse Ox 100% on R/A; ph 14:45 BP 104 / 59; Pulse 77; Resp 16; Pulse Ox 99% on R/A; ph 15:32 BP 102 / 69; Pulse 82; Resp 20; Temp 100.9(O); Pulse Ox 98% on R/A; ph 17:16 BP 99 / 62; Pulse 80; Resp 18; Pulse Ox 99% on R/A; ph 18:24 BP 108 / 78; Pulse 95; Resp 18; Temp 100.9(O); Pulse Ox 100% on R/A; ph 12:39 Body Mass Index 31.09 (77.11 kg, 157.48 cm) aa5 MDM: 12:44 Patient medically screened. pm1 14:37 Data reviewed: vital signs. Data interpreted: Pulse oximetry: on room air is 100 %. pm1 Interpretation: normal. 14:37 Refusal of service: The patient/guardian displays adequate decision making capability pm1 and despite a detailed discussion of alternatives, benefits, risks, and consequences refuses: CT Scan. 15:41 ED course: Patient agrees to get CT scan performed now with lab results returned wnls. pm1 16:33 ED course: Patient is now refusing IV contrast with her CT scan. I explained to the pm1 patient that IV contrast is necessary for her presentation of symptoms and it is possible to miss a diagnosis without it. 18:15 Counseling: I had a detailed discussion with the patient and/or guardian regarding: the pm1 historical points, exam findings, and any diagnostic results supporting the discharge/admit diagnosis, lab results, radiology results, the need for outpatient follow up, to return to the emergency department if symptoms worsen or persist or if there are any questions or concerns that arise at home. 08/15 12:56 Order name: Blood Culture Adult (2) pm1 08/15 12:56 Order name: CBC with Diff; Complete Time: 13:44 pm08/15 12:56 Order name: CMP; Complete Time: 13:54 pm08/15 12:56 Order name: Lactate; Complete Time: 13:54 pm08/15 12:56 Order name: Protime (+inr); Complete Time: 13:44 pm08/15 12:56 Order name: Ptt, Activated; Complete Time: 13:44 pm08/15 12:56 Order name: Urine Culture pm08/15 12:56 Order name: Urine Microscopic Only; Complete Time: 14:31 pm08/15 12:56 Order name: Flu; Complete Time: 14:30 pm08/15 12:57 Order name: COVID-19 SARS RT PCR (Document "Date of Onset" if Symptomatic); Complete pm1 Time: 14:30 08/15 13:07 Order name: Strep; Complete Time: 14:08 pm08/15 14:03 Order name: Urine Dipstick-Ancillary; Complete Time: 14:08 EDAL 08/15 14:09 Order name: Throat Culture EDAL 08/15 12:56 Order name: Accucheck; Complete Time: 13:03 pm1 08/15 12:56 Order name: Cardiac monitoring; Complete Time: 13:03 pm1 08/15 12:56 Order name: EKG - Nurse/Tech; Complete Time: 13:03 pm1 08/15 12:56 Order name: IV Saline Lock - Large Bore; Complete Time: 13:03 pm1 08/15 12:56 Order name: Labs collected and sent; Complete Time: 13:03 pm1 08/15 12:56 Order name: O2 Per Protocol; Complete Time: 13:03 pm1 08/15 12:56 Order name: O2 Sat Monitoring; Complete Time: 13:03 pm1 08/15 12:59 Order name: Chest Pa And Lat (2 Views) XRAY; Complete Time: 13:44 pm1 08/15 14:32 Order name: Frio Screen Profile; Complete Time: 15:17 pm1 08/15 14:45 Order name: Urine --Ancillary (enter results); Complete Time: 16:07 08/15 16:32 Order name: Abdomen ; Complete Time: 17:12 EDAL 08/15 12:56 Order name: Urine Dipstick-Ancillary (obtain specimen); Complete Time: 13:56 pm1 08/15 12:56 Order name: Straight Cath - Urine; Complete Time: 13:56 pm1 Administered Medications: 13:10 Drug: Acetaminophen 1000 mg Route: PO; ph 14:00 Follow up: Response: No adverse reaction; Temperature is decreased ph 13:10 Drug: NS 0.9% (30 ml/kg) 30 ml/kg Route: IV; Rate: bolus; Site: right antecubital; ph 15:00 Follow up: Response: No adverse reaction; IV Status: Completed infusion; IV Intake: ph 2000ml 18:25 Not Given (Patient Refused): Rocephin (cefTRIAXone) 1 grams IV at calculated rate once; ph Given slow IV push per pharmacy instructions Disposition: 08/16 08:42 Co-signature as Attending Physician, Antoine Kunz MD. rn Disposition Summary: 08/15/21 18:16 Discharge Ordered Location: Home pm1 Problem: new pm1 Symptoms: have improved pm1 Condition: Stable pm1 Diagnosis - Fever, unspecified pm1 - Abdominal pain, unspecified pm1 - Low back pain pm1 - Bilateral breast pain pm1 Followup: pm1 - With: Emergency Department - When: As needed - Reason: Worsening of condition Followup: pm1 - With: Private Physician - When: 2 - 3 days - Reason: Recheck today's complaints, Continuance of care, Re-evaluation by your physician Discharge Instructions: - Discharge Summary Sheet pm1 - Abdominal Pain, Adult pm1 - Fever, Adult pm1 - Flank Pain, Adult pm1 - Breast Engorgement pm1 - Breast Pumping Tips pm1 Forms: - Medication Reconciliation Form pm1 - Thank You Letter pm1 - Antibiotic Education pm1 - Prescription Opioid Use pm1 Signatures: Dispatcher [employer] EDMS Antoine Kunz MD MD rn Calderon, Audri RN RN aa5 Marina Fortune RN RN ph Marinas, Patrick, NP [employer] pm1 Corrections: (The following items were deleted from the chart) 08/15 15:31 12:59 Abdomen Pelvis W Con+CT.RAD.BRZ ordered. EDMS EDMS 16:32 15:48 Abdomen Pelvis W Con+CT.RAD.BRZ ordered. EDMS EDMS
--- NOTE | 2021-08-15 18:17 | ER ---
Nurse's Notes [facility] Name: Cathy Watt Age: 30 yrs Sex: Female : 1990 Arrival Date: 08/15/2021 Time: 11:51 Bed 16 Private MD: Diagnosis: Fever, unspecified;Abdominal pain, unspecified;Low back pain;Bilateral breast pain Presentation: 08/15 12:39 Chief complaint: Patient states: diagnosed with endometritis on 07/30. Pt c/o abd pain, aa5 reports chills. Pt reports nausea, reports feeling dizzy. Had vaginal delivery with twins on July 15. Coronavirus screen: fever. Ebola Screen: Patient denies travel to an Ebola-affected area in the 21 days before illness onset. Initial Sepsis Screen: Does the patient meet any 2 criteria? RR > 20 per min. HR > 90 bpm. Yes Does the patient have a suspected source of infection? Yes:. Risk Assessment: Do you want to hurt yourself or someone else? Patient reports no desire to harm self or others. Onset of symptoms was July 2021. 12:39 Acuity: MADAI 2 aa5 12:39 Method Of Arrival: Ambulatory aa5 Triage Assessment: 19:51 Pain: Also complains of decreased appetite. 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 - Social history:: Smoking status: Patient denies any tobacco usage or history of. Screenin:56 Abuse screen: Denies threats or abuse. Denies injuries from another. Nutritional ph screening: No deficits noted. Tuberculosis screening: No symptoms or risk factors identified. Fall Risk None identified. Assessment: 13:00 General: Appears in no apparent distress. uncomfortable, Behavior is calm, cooperative, ph appropriate for age, Reports chills for fever for 12-24 hours. Pain: Complains of pain in "all over". Neuro: Level of Consciousness is awake, alert, obeys commands, Oriented to person, place, time, situation, Reports headache. Cardiovascular: Capillary refill < 3 seconds in bilateral fingers Patient's skin is warm and dry. Respiratory: Airway is patent Respiratory effort is even, unlabored, Respiratory pattern is tachypnea Denies shortness of breath. GI: No signs and/or symptoms were reported involving the gastrointestinal system. Patient currently denies diarrhea, nausea, vomiting. : Reports pain in lower back. Derm: Skin is intact, Skin is pink, warm \\T\\ dry. Musculoskeletal: Circulation, motion, and sensation intact. Range of motion: intact in all extremities. 13:59 Reassessment: Patient appears in no apparent distress at this time. Patient and/or ph family updated on plan of care and expected duration. Pain level reassessed. Patient is alert, oriented x 3, equal unlabored respirations, skin warm/dry/pink. 14:35 Reassessment: Patient appears in no apparent distress at this time. Patient is alert, ph oriented x 3, equal unlabored respirations, skin warm/dry/pink. Pt refusing CT at this time, states, " When they did one last time it made me throw up.". 14:51 Reassessment: Patient appears in no apparent distress at this time. Patient and/or ph family updated on plan of care and expected duration. Pain level reassessed. Patient is alert, oriented x 3, equal unlabored respirations, skin warm/dry/pink. Attempted to hang antibiotic per sepsis protocol, pt refusing at this time, states, " If you haven't found anything for me to have antibiotics for why do I need them? I've just taken so many antibiotics lately I feel like it might be too much for my body. 15:31 Reassessment: Patient appears in no apparent distress at this time. Patient and/or ph family updated on plan of care and expected duration. Pain level reassessed. Patient is alert, oriented x 3, equal unlabored respirations, skin warm/dry/pink. 17:00 Reassessment: Patient appears in no apparent distress at this time. Patient and/or ph family updated on plan of care and expected duration. Pain level reassessed. Patient is alert, oriented x 3, equal unlabored respirations, skin warm/dry/pink. 18:24 Reassessment: Patient appears in no apparent distress at this time. Patient and/or ph family updated on plan of care and expected duration. Pain level reassessed. Patient is alert, oriented x 3, equal unlabored respirations, skin warm/dry/pink. ERP at bedside to speak w/ pt and SO about results. 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 Vital Signs: 12:39 BP 106 / 75; Pulse 97; Resp 40 S; Temp 102.3(O); Pulse Ox 100% on R/A; Weight 77.11 kg aa5 (R); Height 5 ft. 2 in. (157.48 cm) (R); 13:57 BP 117 / 74; Pulse 73; Resp 22; Pulse Ox 100% on R/A; ph 14:45 BP 104 / 59; Pulse 77; Resp 16; Pulse Ox 99% on R/A; ph 15:32 BP 102 / 69; Pulse 82; Resp 20; Temp 100.9(O); Pulse Ox 98% on R/A; ph 17:16 BP 99 / 62; Pulse 80; Resp 18; Pulse Ox 99% on R/A; ph 18:24 BP 108 / 78; Pulse 95; Resp 18; Temp 100.9(O); Pulse Ox 100% on R/A; ph 12:39 Body Mass Index 31.09 (77.11 kg, 157.48 cm) aa5 Vitals: 13:57 Cardiac Rhythm Assessment Sinus rhythm. ph ED Course: 11:51 Patient arrived in ED. mr 12:22 Donny Baldwin, LAI is PHCP. pm1 12:22 Antoine Kunz MD is Attending Physician. pm1 12:38 Arm band placed on. aa5 12:41 Triage completed. aa5 12:54 Marina Fortune, RN is Primary Nurse. ph 13:00 Initial lab(s) drawn, by ED staff, sent to lab. EKG done. Inserted saline lock: 22 ph gauge in right antecubital area, using aseptic technique. Blood collected. Patient maintains SpO2 saturation greater than 95% on room air. 13:27 Chest Pa And Lat (2 Views) XRAY In Process Unspecified. EDMS 13:57 Patient has correct armband on for positive identification. Placed in gown. Bed in low ph position. Call light in reach. Side rails up X 1. Client placed on continuous cardiac and pulse oximetry monitoring. NIBP monitoring applied. Door closed. Noise minimized. Lights dimmed. 13:57 Straight cath inserted, using sterile technique, 16 Fr. Specimen obtained. Returned ph clear yellow urine. Patient tolerated well. 16:45 Abdomen In Process Unspecified. EDMS 18:25 No provider procedures requiring assistance completed. ph 19:52 IV discontinued, intact, bleeding controlled, No redness/swelling at site. Pressure lg3 dressing applied. Administered Medications: 13:10 Drug: Acetaminophen 1000 mg Route: PO; ph 14:00 Follow up: Response: No adverse reaction; Temperature is decreased ph 13:10 Drug: NS 0.9% (30 ml/kg) 30 ml/kg Route: IV; Rate: bolus; Site: right antecubital; ph 15:00 Follow up: Response: No adverse reaction; IV Status: Completed infusion; IV Intake: ph 2000ml 18:25 Not Given (Patient Refused): Rocephin (cefTRIAXone) 1 grams IV at calculated rate once; ph Given slow IV push per pharmacy instructions Medication: 13:56 VIS not applicable for this client. ph Intake: 15:00 IV: 2000ml; Total: 2000ml. ph Outcome: 18:16 Discharge ordered by MD. pm1 19:52 Discharged to home ambulatory, with family. lg3 19:52 Condition: stable 19:52 Discharge instructions given to patient, significant other, Instructed on discharge instructions, Demonstrated understanding of instructions. 19:56 Patient left the ED. lg3 Signatures: Dispatcher [employer] [facility] DelHaylee mr KapoorSandi RN RN aa5 Marina Fortune RN RN Donny Baldwin, MANAGER DIGITAL MANAGER DIGITAL pm1 Tiffanie Boyd RN RN lg3 Corrections: (The following items were deleted from the chart) 12:42 12:39 Chief complaint: Patient states: diagnosed with endometritis on 07/30. Pt c/o abd aa5 pain, reports chills. Pt reports nausea, reports feeling dizzy. aa5
[2021-08-15] MEDS ORDERED: IBUPROFEN 200 MG TAB PO ONE (18:41)
[2021-08-15] MEDS ORDERED: IBUPROFEN 400 MG TAB ONE (18:41)
[2021-08-15 20:22] VITALS: TEMP 100.9
[2021-08-15 20:25] VITALS: BP 108/78; O2SAT 100
--- NOTE | 2021-08-16 12:34 | EKG ---
Test Date: 2021-08-15 Test Time: 13:05:34 Advertising Associate: NEY MEASUREMENT RESULTS: Intervals: Rate: 78 NH: 122 QRSD: 80 QT: 364 QTc: 414 Lejunior: P: 46 NH: 122 QRS: 37 T: 58 INTERPRETIVE STATEMENTS: Normal sinus rhythm Normal ECG Compared to ECG 07/30/2021 12:15:01 No significant changes Electronically Signed On 08-16-21 12:31:45 CDT by Hunter Covington
== END 2021-08-15 19:56 | disposition home or self-care (01) ==
LOC: ER 11:50
DX: R10.9 Unspecified abdominal pain (principal); M54.50 Low back pain, unspecified; N64.4 Mastodynia; Z20.822 Contact with and (suspected) exposure to COVID-19
CPT/HCPCS: 93005; 87040 ×2; 87070; 87088; 85025; 87086; 36415; 86308; 81025; 85610; 87081; 83605; 85730; 80053; 87804 ×2; 74176; 71046; U0003; J7030; 51702; 81003; 81015; 96365; 96366; 99284

== ENCOUNTER 2023-06-30 21:54 | Emergency (ER) | payer OTHER ==
--- OUTSIDE RECORDS SUMMARY | 2023-06-30 21:58 | XMS REPORT | Continuity of Care Document ---
Author Name Unknown Address [address] [facility] [address] [place] [address] [facility] thconnect Address [address] [facility]. 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 Role Phone [place] Primary Care Physician Danny Umana Attending Clinician Anastasia Gonzales MD Attending Clinician ANASTASIA RAMOS Attending Clinician Kristina Doctor Unassigned, [place] Attending Clinician Estephania Angeles Attending Clinician KM Shaw Attending Clinician Neto Combs Attending Clinician ORIANA Love Attending Clinician Unava ilable Maccato, Danny L Admitting Clinician Unavaila ble Physician, No Primary or Family Admitting Clinic chandni Unavailable Payers Payer Name Policy Type Policy Number Effective Date Expirati on Date Source Allergies, Adverse Reactions, Alerts Allergy Name Allergy Type Status Severity Reaction(s) Onset Date Inactive Date Treating Clinician Comments Source shellfis h derived FA Active SV THROAT TINGLING,DIZ ZINESS,CARVER 05-01 00:00: 00 [facility] avocado FA Active U SWELLIMNG, NUMBNESS- THROAT/MOUTH 05-01 00:00: 00 [facility] avocado FA Active U 08-23 00:00: 00 [facility] SEAFOOD DA Active SV HEADACHE, SHAKING,NUMB NESS THROAT/MOUTH 08-23 00:00: 00 [facility] avocado FA Active U SWELLIMNG, NUMBNESS- THROAT/MOUTH 08-23 00:00: 00 [facility] No Known Allergie s DA Active U 2018-03 00:00: 00 [facility] No Known Allergie s DA Active U 2018-03 00:00: 00 [facility] NO KNOWN ALLERGIE S Drug Class Active [facility] Social History Social Habit Start Date Stop Date Quantity Comments Source Gender identity [facility] Tobacco use and exposure 2022-10-17 00:00:00 2022-10-17 00:00:00 Smokeless tobacco non-user [facility] History of Social function 2022-10-17 00:00:00 2022-10-17 00:00:00 [facility] Sex Assigned At 1990 00:00:00 1990 00:00:00 [facility] Smoking Status Start Date Stop Date Source Never smoked tobacco [facility] Vital Signs Vital Name Observation Time Observation Value Comments S shalonda Systolic blood pressure 2022-11-02 20:31:00 97 mm[Hg] [place] [facility] Diastolic blood pressure 2022-11-02 20:31:00 58 mm[Hg] [facility] Heart rate 2022-11-02 20:31:00 62 /min [facility] Body height 2022-11-02 20:31:00 157.5 cm [facility] Body weight 2022-11-02 20:31:00 83.915 kg [facility] BMI 2022-11-02 20:31:00 33.84 kg/m2 [facility] Oxygen saturation in Arterial blood by Pulse oximetry 2022-11-02 20:31:00 100 /min [facility] Systolic blood pressure 2022-10-17 20:12:00 105 mm[Hg] [facility] Diastolic blood pressure 2022-10-17 20:12:00 59 mm[Hg] [facility] Heart rate 2022-10-17 20:12:00 67 /min [facility] Respiratory rate 2022-10-17 20:12:00 20 /min [facility] Body height 2022-10-17 20:12:00 157.5 cm [facility] Body weight 2022-10-17 20:12:00 84.233 kg [facility] BMI 2022-10-17 20:12:00 33.96 kg/m2 [facility] Oxygen saturation in Arterial blood by Pulse oximetry 2022-10-17 20:12:00 99 /min [facility] Procedures Procedure Date / Time Performed Performing Clinicia n Source EXTERNAL PROVIDER - [facility] CARDIOLOGY 2022-10-29 05:01:00 Doctor Unassigned, [place] [facility] [id number] 2021-07-15 00:00:00 [facility] [id number] 2021-07-15 00:00:00 [facility] [id number] 2021-07-15 00:00:00 [facility] [id number] 2021-07-15 00:00:00 [facility] [id number] 2021-07-15 00:00:[address] [facility] [id number] 2021-07-15 00:00:00 [facility] Encounters Start Date/Time End Date/Time Encounter Type Admission Type Attending [facility] Care Facility Care Department Encounter ID Source 2021-05-01 01:11:00 [id number] [facility] 2022-11-22 00:00:00 2022-11-22 00:00:00 [facility] 1.2.840.114 350.1.13.10 4.2.7.2.686 [id number] [facility] 2022-11-21 10:20:00 2022-11-21 10:20:00 Outpatient R AAMIR [facility] [id number] [facility] 2022-11-05 00:00:00 2022-11-05 00:00:00 [facility] 1.2.840.114 350.1.13.10 4.2.7.2.686 [id number] [facility] 2022-11-02 14:15:49 2022-11-02 23:59:00 Hospital Encounter Aamir [facility] 1.2.840.114 350.1.13.10 4.2.7.2.686 [id number] [facility] 2022-11-02 14:00:00 2022-11-02 14:14:00 Outpatient R AAMIR [facility] [id number] [facility] 2022-11-02 14:00:00 2022-11-02 14:14:00 Hospital Encounter Aamir, [facility] 1.2.840.114 350.1.13.10 4.2.7.2.686 [id number] [facility] 2022-11-02 00:00:00 2022-11-02 00:00:00 Letter (Out) Doctor Unassigned, [place] [facility] 1.2.840.114 350.1.13.10 4.2.7.2.686 [id number] [facility] 2022-11-02 00:00:00 2022-11-02 00:00:00 Letter (Out) Doctor Unassigned, [place] [facility] 1.2.840.114 350.1.13.10 4.2.7.2.686 [id number] [facility] 2022-10-29 00:00:00 2022-10-29 00:00:00 Orders Only Doctor Unassigned, [place] [facility] 1.2840.114 350.1.13.10 4.2.7.2.686 [id number] [facility] 2022-10-26 00:00:00 2022-10-26 00:00:00 Telephone Aamir [facility] 1.2.840.114 350.1.13.10 4.2.7.2.686 [id number] [facility] 2022-10-24 13:00:00 2022-10-24 13:00:00 [id number] 2022-10-24 00:00:00 2022-10-24 00:00:00 Telephone Aamir [facility] 1.2.840.114 350.1.13.10 4.2.7.2.686 [id number] [facility] 2022-10-17 08:00:00 2022-10-17 23:59:00 [facility] [id number] [facility] 2022-10-17 08:00:00 2022-10-17 23:59:00 Hospital Encounter Abhilash Ramosbeatriz [facility] PROFSENIAIO [facility] 1.2.840.114 350.1.13.10 4.2.7.2.686 [id number] [facility] 2022-10-17 15:00:00 2022-10-17 15:32:44 Office Visit Anastasia Ramos [facility] 1.2.840.114 350.1.13.10 4.2.7.2.686 [id number] [facility] 2021-12-20 08:18:00 2021-12-20 08:18:00 Outpatient Estephania Baltazar [facility] DAYS [id number] [facility] 2021-09-07 11:36:00 2021-09-07 11:36:00 Outpatient Danny Reed [facility] RADI [id number] [facility] 2021-07-14 23:57:00 2021-07-16 20:56:00 Inpatient EM Danny Wren [facility] OBPP [id number] [facility] 2021-05-01 01:59:00 2021-05-05 12:24:00 Inpatient Danny Reed [facility] OBANTE [id number] [facility] 2021-03-27 10:20:00 2021-03-27 10:20:00 Inpatient EM Danny Wren [facility] RADI [id number] [facility] 2021-02-12 16:19:00 2021-02-12 21:52:00 Emergency E MK [facility] [address] [facility] 2020-12-18 18:42:00 2020-12-18 22:58:00 Inpatient EM Neto Rae [facility] KARLIE [id number] [facility] 2020-10-01 16:03:00 2020-10-01 18:52:00 Emergency E ORIANA RO BL [facility] [address] [facility] 2020-08-23 12:58:00 2020-08-23 12:58:00 Outpatient Danny Wren [facility] [id number] [facility] Results Test Description Test Time Test Comments Results Result Co mments Source BASIC METABOLIC [id number] 17:25:00* Test Item Value Reference Range Interpretation Comme nts SODIUM (test code = NA) 141 mEq/L 135-145 N POTASSIUM (test code = K) 3.8 mEq/L 3.5-5.0 N CHLORIDE (test code = CL) 106 mEq/L 100-115 N CARBON DIOXIDE (test code = CO2) 27 mEq/L 22-31 N ANION GAP (test code = GAP) 12.30 10-20 N GLUCOSE (test code = GLU) 116 mg/dL 65-110 H BLOOD UREA NITROGEN (test co de = BUN) 16 mg/dL 7-18 N GLOMERULAR FILTRATION RATE ( test code = GFR) 186 ml/min >60 N CREATININE (test code = CREAT) 0.4 mg/dL 0.5-1.0 L CALCIUM (test code = CA) 8.5 mg/dL 8.4-10.2 N HCG SERUM [id number] 17:25:00* Test Item Value Reference Range Interpretation Comme nts HCG SERUM QUAL (test code = HCGQL) NEGATIVE CBC W/AUTO [id number] 14:41:00* Test Item Value Reference Range Interpretation Comme nts WHITE BLOOD CELL (test code = WBC) 6.3 K/mm3 6.5-12.3 L RED BLOOD CELL (test code = RBC) 3.93 M/mm3 3.51-4.69 N HEMOGLOBIN (test code = HGB) 12.0 g/dL 10.1-13.8 N HEMATOCRIT (test code = HCT) 35.0 % 32.5-41.8 N MEAN CELL VOLUME (test code = MCV) 89.1 fL 84.6-96.6 N MEAN CELL HGB (test code = MCH) 30.5 pg 27.3-33.9 N MEAN CELL HGB CONCETRATION ( test code = MCHC) 34.3 gm/dL 32.0-34.2 H RED CELL DISTRIBUTION WIDTH (test code = RDW) 12.6 % 12.2-16.3 N PLATELET COUNT (test code = PLT) 274 K/mm3 134-363 N MEAN PLATELET VOLUME (test c ode = MPV) 10.4 fL 9.2-12.7 N NEUTROPHIL % (test code = NT%) 56.2 % 57.9-77.3 L LYMPHOCYTE % (test code = LY%) 29.0 % 14.5-29.7 N MONOCYTE % (test code = MO%) 8.3 % 3.6-10.2 N EOSINOPHIL % (test code = EO%) 5.9 % 0.0-3.0 H BASOPHIL % (test code = BA%) 0.3 % 0.1-0.9 N NEUTROPHIL # (test code = NT#) 3.5 K/mm3 LYMPHOCYTE # (test code = LY#) 1.8 K/mm3 MONOCYTE # (test code = MO#) 0.5 K/mm3 EOSINOPHIL # (test code = EO#) 0.37 K/mm3 BASOPHIL # (test code = BA#) 0.0 K/mm3 RBC MORPHOLOGY REQUIRED (jackelin t code = RBCM) NORMAL NORMAL PLATELET MORPHOLOGY REQUIRED (test code = PLTMR) NORMAL NORMAL URINALYSIS [id number] 13:18:00* Test Item Value Reference Range Interpretation Comme nts UA COLOR (test code = COLU) YELLOW YELLOW UA APPEARANCE (test code = APPU) CLEAR CLEAR UA GLUCOSE DIPSTICK (test co de = DGLUU) NEGATIVE NEG UA BILIRUBIN DIPSTICK (test code = BILU) NEGATIVE NEG UA KETONE DIPSTICK (test cod e = KETU) NEGATIVE NEG UA SPECIFIC GRAVITY (test co de = SGU) 1.029 1.001-1.035 N UA BLOOD DIPSTICK (test code = OLAMIDE) NEG NEG UA PH DIPSTICK (test code = CARLOS) 6.0 5-9 UA PROTEIN DIPSTICK (test co de = PROU) 2+ NEG A UA UROBILINIOGEN DIPSTICK (test code = URO) NEGATIVE mg/dL NEG UA NITRITE DIPSTICK (test co de = EDIE) NEG NEG UA LEUKOCYTE ESTERASE DIPSTI CK (test code = LEUU) NEG NEG UA WBC (test code = WBCU) 0-2 #/hpf NONE SEEN UA RBC (test code = RBCU) 0-2 #/hpf NONE SEEN UA EPITHELIAL CELLS (test co de = EPIU) RARE #/HPF RARE-FEW UA MUCUS (test code = MUCU) 2+ NONE SEEN URINE SAMPLE: CLEAN CATCH- US PELVIS [id number] 00:00:00 [facility] 1990 Sex: F Patient Name: KIRSTEN WATT Unit No: [id number] EXAMS: CPT CODE: [id number] US PELVIS COMPLETE 27356 PROCEDURE INFORMATION: Exam: US Pelvis Complete (Transabdominal), Pelvis (Transvaginal), and US Duplex Artery or Vein (Ovaries) Limited Exam date and time: 09/07/2021 12:02 PM Age: 30 years old Clinical indication: Screening exam; Vaginal bleeding, utis; Additional info: Vag bleeding TECHNIQUE: Imaging protocol: Real-time transabdominal and transvaginal pelvic ultrasound (complete) with image documentation. Transvaginal imaging was used for better evaluation of the endometrium, adnexa,and/or cervix. Real-time duplex ultrasound scan of the arterial or venous flow of the ovaries with B-mode, color Doppler flow and spectral waveform analysis. Complete Pelvis, Limited Duplex. COMPARISON: US DUP AB/PEL/SC LTD 12/18/2020 9:02 PM FINDINGS: Uterus: The uterus measures 9.3 x 3.4 x 5.6 cm.The endometrium measures 0.6 cm. No abnormalities are noted. Right ovary: measures 2.9 x 1.8 x 1.5 cm and has a normal sonographic appearance. Blood flow is identified. Left ovary: measures 3.1 x 1.8x 1.7 cm and has a normal sonographic appearance. Blood flow is identified. There is no free fluid noted. The visualized bladder appears normal. IMPRESSION: 1. Unremarkable pelvic ultrasound. at 1334 Reported and signed by: Mansi Ventura MD CC: Technologist: Elieser Shea RDMS Probe: Trnscrbd D/ (8544) GCD.CPS Orig Print D/T: S: 09/07/2021 (9064) [facility] NAME: BUCKRYLIE SAENZLINDA RadiologyDepartment PHYS: Danny Bello MD [address] : 1990 AGE: 30 SEX: F [place] [address] LOC: F.RAD PHONE #: [phone] EXAM DATE: 09/07/2021 STATUS: REGCLI FAX #: [phone] RAD NO: Page 1 Signed Report Patient Name: KIRSTEN WATT Unit No: [id number] EXAMS: CPT CODE: [id number] US PELVIS COMPLETE 11368 (Continued) [facility] Radiology Department PHYS: Danny Bello MD [address] :1990 AGE: 30 SEX: F [place] [address] LOC: F.RAD PHONE #: [phone] EXAM DATE: 09/07/2021 STATUS: REG CLI FAX #: [phone] RAD NO: Page 2 Signed Report- US TRANSVAGINAL [id number] 00:00:00 [facility] 1990 Sex: F Patient Name: KIRSTEN WATT Unit No: [id number] EXAMS: CPT CODE: [id number] US TRANSVAGINAL W/PELVIS 96803 PROCEDURE INFORMATION: Exam: US Pelvis Complete (Transabdominal), Pelvis (Transvaginal), and US Duplex Artery or Vein (Ovaries) Limited Exam date and time: 09/07/2021 12:02 PM Age: 30 years old Clinical indication: Screening exam; Vaginal bleeding, utis; Additional info: Vag bleeding TECHNIQUE: Imaging protocol: Real-time transabdominal and transvaginal pelvic ultrasound (complete) with image documentation. Transvaginal imaging was used for better evaluation of the endometrium, adnexa, and/or cervix. Real-time duplex ultrasound scan of the arterial or venous flow of the ovaries with B- mode, color Doppler flow and spectral waveform analysis. Complete Pelvis, Limited Duplex. COMPARISON: US DUP AB/PEL/SC LTD 12/18/2020 9:02 PM FINDINGS: Uterus: The uterus measures 9.3 x 3.4 x 5.6cm. The endometrium measures 0.6 cm. No abnormalities are noted. Right ovary: measures 2.9 x 1.8 x 1.5 cm and has a normal sonographic appearance. Blood flow is identified. Left ovary: measures 3.1 x1.8 x 1.7 cm and has a normal sonographic appearance. Blood flow is identified. There is no free fluid noted. The visualized bladder appears normal. IMPRESSION: 1. Unremarkable pelvic ultrasound. at 8281 Reported and signed by: Mansi Ventura MD CC: Technologist: Elieser Shea RDMS Probe: [id number] Trnscrbd D/ (7626) GCD.CPS Orig Print D/T: S: 09/07/2021 (2896) [facility] NAME: KIRSTEN WATT Radiology Department PHYS: Danny Bello MD [address] : 1990 AGE: 30 SEX: F [place], [place] [address] LOC: F.RAD PHONE #: [phone] EXAM DATE: 09/07/2021 STATUS: REG CLI FAX #: [phone] RAD NO: Page 1 Signed Report Patient Name: KIRSTEN WATT Unit No: [id number] EXAMS: CPT CODE: [id number] US TRANSVAGINAL W/PELVIS 84576 (Continued) [facility] NAME: BUCKRYLIEKIRSTEN Radiology Department PHYS: Alana Bello MD [address] : 1990 AGE: 30 SEX: F [place], [place] [address] LOC: F.RAD PHONE #: [phone] EXAM DATE: 09/07/2021 STATUS: REG CLI FAX #: [phone] RAD NO: Page 2 Signed Report- DUP AB/PEL/SC/LTD 2021-09-07 00:00:00 [facility] : 1990 Sex: F Patient Name: KIRSTEN WATT Unit No: [id number] EXAMS: CPT CODE: [id number] DUP AB/PEL/SC/[id number] PROCEDURE INFORMATION: Exam: US Pelvis Complete (Transabdominal), Pelvis (Transvaginal), and US Duplex Artery or Vein (Ovaries) Limited Exam date and time: 09/07/2021 12:02 PM Age: 30 years old Clinical indication: Screening exam; Vaginal bleeding, utis; Additional info: Vag bleeding TECHNIQUE: Imaging protocol: Real-time transabdominal and transvaginal pelvic ultrasound (complete) with image documentation. Transvaginal imaging was used for better evaluation of the endometrium, adnexa, and/or cervix. Real-time duplex ultrasound scan of the arterial or venous flow of the ovaries with B-mod e, color Doppler flow and spectral waveform analysis. Complete Pelvis, Limited Duplex. COMPARISON: US DUP AB/PEL/SC LTD 12/18/2020 9:02 PM FINDINGS: Uterus: The uterus measures 9.3 x 3.4 x 5.6 cm. Theendometrium measures 0.6 cm. No abnormalities are noted. Right ovary: measures 2.9 x 1.8 x 1.5 cm and has a normal sonographic appearance. Blood flow is identified. Left ovary: measures 3.1 x 1.8 x 1.7 cm and has a normal sonographic appearance. Blood flow is identified. There is no free fluid noted. The visualized bladder appears normal. IMPRESSION: 1. Unremarkable pelvic ultrasound. at 1334 Reported and signed by: Mansi Ventura MD CC: Technologist: Elieser Shea RDMS Probe: Trnscrbd D/ (6934) GCD.CPS Orig Print D/T: S: 09/07/2021 (0524) [facility] NAME: KIRSTEN WATT Radiology Department PHYS: Danny Bello MD [address] : 1990 AGE: 30 SEX: F [place], [place] [address] LOC: ScoobyRAD PHONE #: [phone] EXAM DATE: 09/07/2021 STATUS: REG CLIF[place] #: [phone] RAD NO: Page 1 Signed Report Patient Name: KIRSTEN WATT Unit No: [id number] EXAMS: CPT CODE: [id number] DUP AB/PEL/SC/LTD 70590 (Continued) [facility] NAME: KIRSTEN WATT Radiology Department PHYS: Danny Bello MD [address] : 1990 AGE: 30 SEX: F [place], [place] [address] LOC: NHUNG PHONE #: [phone] EXAM DATE: 09/07/2021 STATUS: REG CLI FAX #: [phone] RAD NO: Page 2 Signed [id number] 18:36:00 * Test Item Value Reference Range Interpretation Comme nts SURGICAL (test code = SR) RUN DATE: 07/31/21 [facility] - Laboratory PAGE 1 RUN TIME: 1836 Specimen Inquiry RUN USER: INTERFACE PATIENT: KIRSTEN WATT LOC: ScoobyPPUC U #: [id number] AGE/SX: 30/F ROOM: [facility] RE07/14/21REG DR: Danny Wren MD : [birth year] BED: A DIS: 07/16/21 STATUS: DIS IN TLOC: SPEC #: [id number] RECD: 07/17/21 STATUS: ASHLEY FORD #: [id number] LULA: 07/15/21- SUBM DR: Danny Wren MD ENTERED: 07/17/21 SP TYPE: SURGICAL OTHR DR: DOES_NOT KNOW ORDERED: ANATOMIC SPEC, SPEC TRACK, 85963/2 COPIES TO: DOES_NOT KNOW Danny Wren MD [address] [facility] [address] [place] [address] PROCEDURES: 46921 (07/17/21) TISSUES: A. PLACENTA, THIRD TRIMESTER (28 + WEEKS) FINAL DIAGNOSIS TWIN PLACENTA, 36.5 WEEKS, DELIVERY:- Diamniotic, dichorionic separate twin placenta. PLACENTA A:- Third-trimester placenta, 422g.- Meconium stain.- Trivascular umbilical cord.- Decidua without pathologic alteration.- No villitis or funisitis. PLACENTA B:- Third-trimester placenta, 492 g.- Trivascular umbilical cord.- Decidua and membrane without pathologic alteration.- No villitis or funisitis. GROSS DESCRIPTION Received in formalin is a twin placenta with the separate placental discs weighing, 914grams (trimmed weight) in aggregate, with grossly thick shared membranes. There are novascular anastomosis present. Placenta A:The umbilical cord is 36 cm in total length, 1.2 cm in diameter, is eccentrically inserted4 cm from the nearest placental edge, is white, glistening and has no abnormality. Thereis appropriate coiling. Cross sectioning demonstrates 3 vessels. The membranes areopaque. They have marginal attachment and are ruptured 3 cm from the placental edge. The CONTINUED ON NEXT PAGE RUN DATE: 07/31/21 [facility] PAGE 2 RUN TIME: 6 Specimen Inquiry RUN USER: INTERFACE SPEC #: [id number] PATIENT: KIRSTEN WATT #[id number] (Continued) GROSS DESCRIPTION (Continued) placental disk is ovoid, measures 20 x 15 x 2.2 cm, and weighs 422 grams without themembranes and cord. The surface is blue, with unremarkable vasculature. The maternalsurface is complete. Serial sections through the disk show normal red-brown beefyparenchyma. Placenta B:The umbilical cord is 30 cm in total length, 1.3 cm in diameter, is centrally inserted 6 cmfrom the nearest placental edge, is white, glistening and has no abnormality. There isappropriate coiling. Cross sectioning demonstrates 3 vessels. The membranes areopaque. The placental disk is discoid, measures 19 x 19 x 2.2 cm, and weighs 492 gramswithout the membranes and cord. The surface is blue, with unremarkable vasculature. The maternal surface is complete. Serial sections through the disk show normal red-brownbeefy parenchyma. Sections code:A1: Shared MembraneA2: Placenta "A" Cord and MembraneA3-A4: Placenta "A" placenta cross sections.A5: Placenta "B" Cord and MembraneA6-A7: Placenta "B" placenta Cross Section JA Technical component performed at [facility],[address], [place] [address] MICROSCOPIC DESCRIPTION The diagnosis is based upon microscopic examination. CLINICAL INFORMATION , 36.5 WEEKS, DI/DI, TWINS. Signed EliaEulogio 07/31/211835 END OF REPORT HGB [id number] 11:58:00* Test Item Value Reference Range Interpretation Comme nts HEMOGLOBIN (test code = HGB) 11.0 g/dL 10.1-13.8 N HEMATOCRIT (test code = HCT) 33.1 % 32.5-41.8 N AG HEPATITIS B [id number] 05:36:00* Test Item Value Reference Range Interpretation Comme nts AG HEPATITIS B SURFACE (test code = HBSAG) NONREACTIVE NONREACTIVE AB HEPATITIS C [id number] 05:36:00* Test Item Value Reference Range Interpretation Comme nts AB HEPATITIS C (test code = HCVAB) NONREACTIVE NONREACTIVE SIGNAL TO CUTOFF (test code = CUTOFF) 0.06 <0.80 N AB [id number] 05:36:00* Test Item Value Reference Range Interpretation Comme nts AB TREPONEMA (test code = TREPAB) NONREACTIVE NONREACTIVE AB HIV 1 05:36:00* Test Item Value Reference Range Interpretation Comme nts AB HIV 1 2 (test code = HZA18OG) NONREACTIVE NONREACTIVE Done by [employer] HIV Ag/Ab Combo Screen PIH [id number] 00:40:00* Test Item Value Reference Range Interpretation Comme nts CREATININE (test code = CREAT) 0.5 mg/dL 0.5-1.0 N SGOT/AST (test code = AST) 25 units/L 15-37 N SGPT/ALT (test code = ALT) 15 units/L 12-78 N LACTIC DEHYDROGENASE(LDH) (t est code = LDH) 236 units/L 81-234 H : *COMPREHENSIVE METABOLIC [id number] 00:40:00* Test Item Value Reference Range Interpretation Comme nts SODIUM (test code = NA) 138 mEq/L 135-145 N POTASSIUM (test code = K) 4.3 mEq/L 3.5-5.0 N CHLORIDE (test code = CL) 105 mEq/L 100-115 N CARBON DIOXIDE (test code = CO2) 25 mEq/L 22-31 N ANION GAP (test code = GAP) 12.00 10-20 N GLUCOSE (test code = GLU) 74 mg/dL 65-110 N BLOOD UREA NITROGEN (test co de = BUN) 9 mg/dL 7-18 N GLOMERULAR FILTRATION RATE ( test code = GFR) 145 ml/min >60 N TOTAL PROTEIN (test code = PROT) 5.4 gm/dL 6.3-8.2 L ALBUMIN (test code = ALB) 2.3 gm/dL 3.4-4.8 L CALCIUM (test code = CA) 8.0 mg/dL 8.4-10.2 L BILIRUBIN TOTAL (test code = BILT) 0.2 mg/dL 0.2-1.0 N ALKALINE PHOSPHATASE TOTAL ( test code = ALKP) 176 units/L 46-116 H : *COVID 19 Asymptomatic IH [id number] 00:11:00* Test Item Value Reference Range Interpretation Comme nts COVID 19 Asymptomatic IH AG (test code = COVNONPUIAG) NEGATIVE NEGATIVE This test has be en authorized only for the detection ofproteins from SARS-CoV-2, not for any other viruses orpathogens. Negative results should be treated as presumptive andconfirmed with a molecular assay, if necessary for patientmanagement. Negative results do not rule out COVID-19 andshould not be used as the sole basis for treatment orpatient management decisions, including infection controldecisions. Negative results should be considered in thecontext of a patient's recent exposures, history and thepresence of clinical signs and symptoms consistent withCOVID-19. This test has not been FDA cleared or approved; the test hasbeen authorized by FDA under an Emergency Use Authorization(EUA) for use by laboratories certified under the CLIA thatmeet the requirements to perform moderate, high or waivedcomplexity tests. This test is authorized for use at thePoint of Care (POC), i.e., in patient care settingsoperating under a CLIA Certificate of Waiver, Certificate ofCompliance, or Certificate of Accreditation. This test is only authorized for the duration of thedeclaration that circumstances exist justifying theauthorization of emergency use of in vitro diagnostic testsfor detection and/or diagnosis of COVID-19 under Icpwarf089(b)(1) of the Act, 21 U.S.C. 360bbb-3(b)(1), unless theauthorization is terminated or revoked sooner. CBC W/AUTO [id number] 00:09:00* Test Item Value Reference Range Interpretation Comme nts WHITE BLOOD CELL (test code = WBC) [...] pg 27.3-33.9 N MEAN CELL HGB CONCETRATION ( test code = MCHC) 32.3 gm/dL 32.0-34.2 N RED CELL DISTRIBUTION WIDTH (test code = RDW) 15.4 % 12.2-16.3 N PLATELET COUNT (test code = PLT) 170 K/mm3 134-363 N MEAN PLATELET VOLUME (test c ode = MPV) 11.5 fL 9.2-12.7 N NEUTROPHIL % (test code = NT%) 56.4 [...] = BA#) 0.0 K/mm3 RBC MORPHOLOGY REQUIRED (jackelin t code = RBCM) NORMAL NORMAL PLATELET MORPHOLOGY REQUIRED (test code = PLTMR) NORMAL NORMAL RUPTURE OF [id number] 08:24:00* Test Item Value Reference Range Interpretation Comme nts RUPTURE OF MEMBRANES (test c ode = ROM) NON-RUPTURED AG HEPATITIS B [id number] 03:20:00* Test Item Value Reference Range Interpretation Comme nts AG HEPATITIS B SURFACE (test code = HBSAG) NONREACTIVE NONREACTIVE AB HEPATITIS C [id number] 03:20:00* Test Item Value Reference Range Interpretation Comme nts AB HEPATITIS C (test code = HCVAB) NONREACTIVE NONREACTIVE SIGNAL TO CUTOFF (test code = CUTOFF) 0.04 <0.80 N AB [id number] 03:20:00* Test Item Value Reference Range Interpretation Comme nts AB TREPONEMA (test code = TREPAB) NONREACTIVE NONREACTIVE AB HIV 1 03:20:00* Test Item Value Reference Range Interpretation Comme nts AB HIV 1 2 (test code = UIH54ZI) NONREACTIVE NONREACTIVE Done by [employer] 4[employer] Gen HIV Ag/Ab Combo Screen COMPREHENSIVE METABOLIC [id number] 02:16:00* Test Item Value Reference Range Interpretation Comme nts SODIUM (test code = NA) 134 mEq/L 135-145 L POTASSIUM (test code = K) 4.2 mEq/L 3.5-5.0 N CHLORIDE (test code = CL) 103 mEq/L 100-115 N CARBON DIOXIDE (test code = CO2) 21 mEq/L 22-31 L ANION GAP (test code = GAP) 13.80 10-20 N GLUCOSE (test code = GLU) 166 mg/dL 65-110 H BLOOD UREA NITROGEN (test co de = BUN) 8 mg/dL 7-18 N GLOMERULAR FILTRATION RATE ( test code = GFR) 187 ml/min >60 N CREATININE (test code = CREAT) 0.4 mg/dL [...] 15 units/L 12-78 N ALKALINE PHOSPHATASE TOTAL ( test code = ALKP) 92 units/L 46-116 N COVID 19 Asymptomatic IH [id number] 01:58:00* Test Item Value Reference Range Interpretation Comme nts COVID 19 Asymptomatic IH AG (test code = COVNONPUIAG) NEGATIVE NEGATIVE This test has be en authorized only for the detection ofproteins from SARS-CoV-2, not for any other viruses orpathogens. Negative results should be treated as presumptive andconfirmed with a molecular assay, if necessary for patientmanagement. Negative results do not rule out COVID-19 andshould not be used as the sole basis for treatment orpatient management decisions, including infection controldecisions. Negative results should be considered in thecontext of a patient's recent exposures, history and thepresence of clinical signs and symptoms consistent withCOVID-19. This test has not been FDA cleared or approved; the test hasbeen authorized by FDA under an Emergency Use Authorization(EUA) for use by laboratories certified under the CLIA thatmeet the requirements to perform moderate, high or waivedcomplexity tests. This test is authorized for use at thePoint of Care (POC), i.e., in patient care settingsoperating under a [place] Certificate of Waiver, Certificate ofCompliance, or Certificate of Accreditation. This test is only authorized for the duration of thedeclaration that circumstances exist justifying theauthorization of emergency use of in vitro diagnostic testsfor detection and/or diagnosis of COVID-19 under Nncinay961(b)(1) of the Act, 21 U.S.C. 360bbb-3(b)(1), unless theauthorization is terminated or revoked sooner. CBC W/AUTO [id number] 01:54:00* Test Item Value Reference Range Interpretation Comme nts WHITE BLOOD CELL (test code = WBC) [...] pg 27.3-33.9 N MEAN CELL HGB CONCETRATION ( test code = MCHC) 32.5 gm/dL 32.0-34.2 N RED CELL DISTRIBUTION WIDTH (test code = RDW) 13.0 % 12.2-16.3 N PLATELET COUNT (test code = PLT) 229 K/mm3 134-363 N MEAN PLATELET VOLUME (test c ode = MPV) 10.4 fL 9.2-12.7 N NEUTROPHIL % (test code = NT%) 84.3 [...] = BA#) 0.0 K/mm3 RBC MORPHOLOGY REQUIRED (jackelin t code = RBCM) NORMAL NORMAL PLATELET MORPHOLOGY REQUIRED (test code = PLTMR) NORMAL NORMAL URINALYSIS [id number] 01:54:00* Test Item Value Reference Range Interpretation Comme nts UA COLOR (test code = COLU) YELLOW YELLOW UA APPEARANCE (test code = APPU) CLEAR CLEAR UA GLUCOSE DIPSTICK (test code = DGLUU) 1+ NEGATIVE A UA BILIRUBIN DIPSTICK (test code = BILU) NEGATIVE NEGATIVE UA KETONE DIPSTICK (test code = KETU) NEGATIVE NEGATIVE UA SPECIFIC GRAVITY (test code = SGU) 1.025 1.001-1.035 N UA BLOOD DIPSTICK (test code = OLAMIDE) NEG NEGATIVE UA PH DIPSTICK (test code = CARLOS) 6.0 5-9 UA PROTEIN DIPSTICK (test code = PROU) NEGATIVE NEGATIVE UA UROBILINIOGEN DIPSTICK (test code = URO) 0.2 EU/dL See_Comment [Automated message] The system which generated this result transmitted reference range: <=1.0. The reference range was not used to interpret this result as normal/abnormal. UA NITRITE DIPSTICK (test code = EDIE) NEGATIVE NEGATIVE UA LEUKOCYTE ESTERASE DIPSTICK (test code = LEUU) NEG NEGATIVE UA WBC (test code = WBCU) 0-2 #/hpf NONE SEEN UA EPITHELIAL CELLS (test code = EPIU) NONE SEEN #/HPF RARE-FEW UA RBC (test code = RBCU) 0-2 #/hpf NONE SEEN UA MUCUS (test code = MUCU) 1+ NONE SEEN URINE SAMPLE: CLEAN CATCH- US PREG UT [id number] 00:00:00 [facility] 1990 Sex: F Patient Name: KIRSTEN WATT Unit No: [id number] EXAMS: CPT CODE: [id number] US PREG UT TRANSVAGINAL 14208 PROCEDURE INFORMATION: Exam: US After First Trimester, Transabdominal and USPregnancy, Transvaginal Exam date and time: 05/01/2021 3:08 AM Age: 30 years old Clinical indication:Screening exam; Other: Twins at 26 weeks; Growth, cervical length, placenta location; ; Parviz tional info: Twins at 26 weeks; Growth, cervical length, placenta locat TECHNIQUE: Imaging protocol: Real-time transabdominal obstetrical ultrasound of the maternal pelvis and a second or third trimester with image documentation. Transvaginal imaging was used for better evaluation of the fetus, adnexa, [...] JASMINE: Qualitatively normal. Single deepest pocket 5.7 cm.Biparietal diameter: 6.64 cm or 26 weeks 5 days Head circumference: 24.54 cm or 26 weeks 5 days Abdominal circumference: 21.79 cm or 26 weeks 2 days Femur length: 4.87 cm or 26 weeks 3 days Gestational age (AUA): 26 weeks 4 days Estimated due date (AUA): 08/03/2021 Estimated weight: 927 +/-139 g (2 lb 1 oz +/-5 oz) 57.4% heart rate 136 bpm. FL/BPD: 73.39 (71- 87) FL/AC: 22.36 (20-24) HC/AC: 1.13 (0.93-1.11) Cephalic index: 77.24 (70-86) The structures are not individually evaluated on this examination, but no abnormality is demonstrated. [facility] Rad[facility] Department PHYS: Danny Bello MD [address] : 1990 AGE: 30 SEX: F [place], [place] [address] LOC: Ildefonso Bustillo PHONE #: [phone] EXAM DATE: 05/01/2021 STATUS: ADM IN FAX #: [phone] RAD NO: Page 1 Signed Report (CONTINUED) Patient Name: KIRSTEN WATT Unit No: [id number] EXAMS: CPT CODE: [id number] US PREG UT TRANSVAGINAL 82023 (Continued) Presentation: Transverse maternal left Placenta: Posterior right [...] oz) 52.9% heart rate 125 bpm. FL/BPD: 74.05 (71- 87) FL/AC: 22.06 (20-24) HC/AC: 1.11 (0.93-1.11) Cephalic index: 74.95 (70-86) The structures are not individually evaluated on this examination, but no abnormality is demonstrated. IMPRESSION: Live twin intrauterine as above described. at 0424 Reported and signed by: Miller Car MD CC: Technologist: Evi He RDMS Probe: [id number] Trnscrbd D/ (0424) [email or web address].[email or web address] Orig Print D/T: S: 05/01/2021 (0425) [facility] NAME: RYLIE WATTLINDA Radiology Department PHYS: MACDanny Olmedo MD [address] : 1990 AGE: 30 SEX: F [place], [place] [address] LOC: F.027 A PHONE #: [phone] EXAM DATE: 05/01/2021 STATUS: ADM IN FAX #: [phone] RAD NO: Page 2 Signed Report Patient Name: KIRSTEN WATT Unit No: [id number] EXAMS: CPT CODE: [id number] US PREG UT TRANSVAGINAL 50226 (Continued) [facility] NAME: RYLIE WATTLINDA Radiology Department PHYS: Danny Bello MD [address] : 1990 AGE: 30 SEX: F [place], [place] [address] LOC: F.027 A PHONE #: [phone] EXAM DATE: 05/01/2021 STATUS: ADM IN FAX #: [phone] RAD NO: Page 3 Signed Report- US FLW UP 2021-05-01 00:00:00 [facility] 1990 Sex: F Patient Name: KIRSTEN WATT Unit No: [id number] EXAMS: CPT CODE: [id number] US FLW UP 81171 PROCEDURE INFORMATION: Exam: US After First Trimester, [...] maternal pelvis and a second or third trimesterpregnancy with image documentation. Transvaginal imaging was used for better evaluation of the fetus, adnexa, [...] Qualitatively normal. Single deepest pocket 5.7 cm. Bip arietal diameter: 6.64 cm or 26 weeks 5 days Head circumference: 24.54 cm or 26 weeks 5 days Abdominal circumference: 21.79 cm or 26 weeks 2 days Femur length: 4.87 cm or 26 weeks 3 days Gestational age (AUA): 26 weeks 4 days Estimated due date (AUA): 08/03/2021 Estimated weight: 927 +/-139 g(2 lb 1 oz +/-5 oz) 57.4% heart rate 136 bpm. FL/BPD: 73.39 (71-87) FL/AC: 22.36 (20-24) HC/AC : 1.13 (0.93-1.11) Cephalic index: 77.24 (70-86) The structures are not individually evaluated on this examination, but no abnormality is demonstrated. Twin B: [facility] NAME: KIRSTEN WATT Radiology Department PHYS: Danny Bello MD [address] : 1990 AGE: 30 SEX: F [place] [address] LOC: Ildefonso Bustillo PHONE #: [phone] EXAM DATE: 05/01/2021 STATUS: ADM IN FAX #: [phone] RAD NO: Page 1 Signed Report (CONTINUED) Patient Name: BUCKRYLIE SAENZLINDA Unit No: [id number] EXAMS: CPT CODE: [id number] US FLW UP 02638 (Continued) Presentation: Transverse maternal left Placenta: Posterior right [...] oz) 52.9% heart rate 125 bpm. FL/BPD: 74.05 (71-87) FL/AC: 22.06 (20-24) HC/AC: 1.11 (0.93-1.11) Cephalic index: 74.95 (70-86) The structures are not individually evaluated on this examination, but no abno rmality is demonstrated. IMPRESSION: Live twin intrauterine as above described. at 0424 Reported and signed by: Miller Car MD CC: Technologist: Evi He RDMS Probe: Trnscrbd D/ (0424) GCD.CPS Orig Print D/T: S: 05/01/2021 (0425) [facility] NAME: KIRSTEN WATT Radiology Department PHYS: Danny Bello MD [address] : 1990 AGE: 30 SEX: F [place] LOC: FVilma A PHONE #: [phone] EXAM DATE: 05/01/2021 STATUS: ADM INFAX #: [phone] RAD NO: Page 2 Signed Report Patient Name: KIRSTEN WATT Unit No: [id number] EXAMS: CPT CODE: [id number] US FLW UP 49632 (Continued) [facility] NAME: KIRSTEN WATT Radiology Department PHYS: Danny Bello MD [address] : 1990 AGE: 30 SEX: F [place] [address] LOC: Ildefonso Bustillo PHONE #: [phone] EXAM DATE: 05/01/2021 STATUS: ADM IN FAX #: [phone] RAD NO: Page 3 Signed Report- US FLW [id number] 00:00:00 [facility] 1990 Sex: F Patient Name: KIRSTEN WATT Unit No: [id number] EXAMS: CPT CODE: [id number] US FLWUP 92929 PROCEDURE INFORMATION: Exam: US After First Trimester, [...] maternal pelvis and a second or third trimesterpregnancy with image documentation. Transvaginal imaging was used for better evaluation of the fetus, adnexa, [...] Qualitatively normal. Single deepest pocket 5.7 cm. Bip arietal diameter: 6.64 cm or 26 weeks 5 days Head circumference: 24.54 cm or 26 weeks 5 days Abdominal circumference: 21.79 cm or 26 weeks 2 days Femur length: 4.87 cm or 26 weeks 3 days Gestational age (AUA): 26 weeks 4 days Estimated due date (AUA): 08/03/2021 Estimated weight: 927 +/-139 g(2 lb 1 oz +/-5 oz) 57.4% heart rate 136 bpm. FL/BPD: 73.39 (71-87) FL/AC: 22.36 (20-24) HC/AC : 1.13 (0.93-1.11) Cephalic index: 77.24 (70-86) The structures are not individually evaluated on this examination, but no abnormality is demonstrated. Twin B: [facility] NAME: KIRSTEN WATT Radiology Department PHYS: Danny Bello MD [address] : 1990 AGE: 30 SEX: F [place], [place] [address] LOC: Ildefonso Bustillo PHONE #: [phone] EXAM DATE: 05/01/2021 STATUS: ADM IN FAX #: [phone] RAD NO: Page 1 Signed Report (CONTINUED) Patient Name: BUCKRYLIE SAENZLINDA Unit No: [id number] EXAMS: CPT CODE: [id number] US FLW UP 42458 (Continued) Presentation: Transverse maternal left Placenta: Posterior right grade 2. No placenta previa. JASMINE: Qualitatively normal. Single deepest pocket 7.0 cm Biparietal diameter: 6.45 cm or 26weeks 1 day Head circumference: 23.95 cm or 26 weeks 0 days Abdominal circumference: 21.64 cm or 26weeks 1 day Femur length: 4.77 cm or 26 weeks 0 days Gestational age (AUA): 26 weeks 1 day Estimated due date (AUA): 08/06/2021 Estimated weight: 886 +/-133 g (1 lb 15 oz +/-5 oz) 52.9% heart rate 125 bpm. FL/BPD: 74.05 (71-87) FL/AC: 22.06 (20-24) HC/AC: 1.11 (0.93-1.11) Cephalic index: 74.95 (70-86) The structures are not individually evaluated on this examination, but no abnormality is demonstrated. IMPRESSION: Live twin intrauterine as above described. at 0424 Reported and signed by: Miller Car MD CC: Technologist: Evi He RDMS Probe: Trnscrbd D/ (0424) GCD.CPS Orig Print D/T: S: 05/01/2021 (0425) [facility] NAME: EZEQUIEL WATTDA Radiology Department PHYS: Danny Bello MD [address] : 1990 AGE: 30 SEX: F [place] [address] LOC: Ildefonso A PHONE #: [phone] EXAM DATE: 05/01/2021 STATUS: ADM IN FAX #: [phone] RAD NO: Page 2 Signed Report Patient Name: KIRSTEN WATT Unit No: [id number] EXAMS: CPT CODE: [id number] US FLW UP 15250 (Continued) [facility] NAME: KIRSTEN WATT Radiology Department PHYS: Danny Bello MD [address] : 1990 AGE: 30 SEX: F [place], [place] [address] LOC: F.027 A PHONE #: [phone] EXAM DATE: 05/01/2021 STATUS: ADM IN FAX #: [phone] RAD NO: Page 3 Signed Report- US PRG AFT 1ST TRI AD 2021-03-27 00:00:00 [facility] : 1990 Sex: F Patient Name: KIRSTEN WATT Unit No: [id number] EXAMS: CPT CODE: [id number] US PRG AFT 1ST TRI AD [address]690 PROCEDURE INFORMATION: Exam: US After First Trimester, Transabdominal Exam date and time: 03/27/2021 10:46 AM Age: 30 years old Clinical indication: Screening exam; Routine US, uterus; Additional info: Anatomy LABS AND CLINICAL REPORTS: Gestational age (Established): 21 weeks, 0 days 08/07/2021 Estimated due date (Established): 08/07/2021 TECHNIQUE: Imaging protocol:Real-time transabdominal obstetrical ultrasound of the maternal pelvis and a second or third trimester with image documentation. COMPARISON: OT US PREG 1ST TRIMTR 12/18/2020 9:02 PM FINDINGS: Number of fetuses: 2 Multifetal identity: Fetus A Gestation: Twin, viable intrauterine gestation. F etal heart rate: 143 bpm presentation: Vertex (maternal left) Placenta: Anterior placenta, grade 1, without previa or retroplacental hemorrhage Amniotic fluid: Amniotic fluid is normal for gestational age. ANATOMY: midline falx: Unremarkable cerebellum: Unremarkable lateral ventricles: Unremarkable cisterna magna: Unremarkable choroid plexus: UnremarkableFetal upper lip and nose: Unremarkable heart four- chamber view, heart size and position: Four-chamber heart visualized with left cardiac apex. Unremarkable LVOT. Limited RVOT by position. Fetalkidneys: Unremarkable stomach: Unremarkable. Normal situs. urinary bladder: Unremarkable spine: Unremarkable Umbilical cord insertion site into the abdomen: Unremarkable cordinsertion Umbilical cord vessel number: 3 vessel cord arms and hands: Unremarkable legsand feet: Unremarkable external genitalia: Unremarkable BIOMETRY: Estimated due date (AUA): 08/04/2021 Gestational age (AUA): 21 weeks, 3 days Estimated weight: 411 +/- 60 g [facility] NAME: KIRSTEN WATT Radiology Department PHYS: Danny Bello MD[address] : 1990 AGE: 30 SEX: F [place] [address] LOC: F.RAD PHONE #: [phone] EXAM DATE: 03/27/2021 STATUS: REG CLI FAX #: [phone] RAD NO: Page 1 Signed Report (CONTINUED) Patient Name: KIRSTEN WATT Unit No: [id number] EXAMS: CPT CODE: [id number] US PRG AFT 1ST TRI AD [address]75[address] (Continued) Estimated weight percentile: 50.1 % Biparietal diameter [...] A concordant with dates. Estimated weight of 411 +/- 60 g (50.1 %). 2. Limited RVOT visualization by position. Otherwise no gross anatomic abnormalities are detected. 3. The cervix is closed measuring 4.5 cm in length. 4. Normal amniotic fluid. PROCEDURE INFORMATION: Exam: US After [...] intrauterine gestation. heart rate: 135 bpm [facility] NAME: KIRSTEN WATT Radiology Department PHYS: Danny Bello MD [address] : 1990 AGE: 30 SEX: Rachna Marroquin [place], [place] [address] LOC: F.RAD PHONE #: [phone] EXAM DATE: 03/27/2021 STATUS: REG CLI FAX #: [phone] RAD NO: Page 2 Signed Report (CONTINUED) Patient Name: KIRSTEN WATT Unit No: [id number] EXAMS: CPT CODE: [id number] US PRG AFT 1ST TRI AD 18760 (Continued) presentation: Vertex (maternal right) Placenta: Posterior placenta, grade 1, without previa or retroplacental hemorrhage. Amniotic fluid: Amniotic fluid is normal for gestational age. ANATOMY: midline falx: Unremarkable septum pellucidum: Unremarkable cerebellum: Unremarkable lateral ventricles: Unremarkable cisterna magna: Unremarkable upper lip and nose: Unremarkable heart four-chamber view, heart size and position: Four-chamber heart identified with left cardiac apex. RVOT/LVOT are unremarkable kidneys: Unremarkable stomach: Unremarkable. Normal situs. urinary bladder: Unremarkable Spine: Unremarkable Umbilical cord insertion site into the abdomen: Normal cord insertion Umbilical cord vessel number: 3 Arms and hands: Unremarkable Legs and feet: Unremarkable external genitalia: Unremarkable BIOMETRY: Gestational age (AUA): 21 weeks, 2 days Estimated weight percentile: 49.2 % Estimated due date (AUA): 08/05/2021 Estimated weight: 408 +/- 60 g Biparietal diameter: 4.94 cm (21 weeks, 0 days)Head circumference: 18.8 cm (21 weeks, 1 day) [...] closed measuring 4.5 cm in length. [facility] NAME: RYLIE WATTLINDA Radiology Department PHYS: Danny Bello MD [address] : 1990 AGE: 30 SEX: [place] LOC: NHUNG PHONE #: [phone] EXAM DATE: 03/27/2021 STATUS: REG CLI FAX #: [phone] RAD NO: Page 3 Signed Report (CONTINUED) Patient Name: KIRSTEN WATT Unit No: [id number] EXAMS: CPT CODE: [id number] US PRG AFT 1ST TRI AD 14434 (Continued) at 1500 Reported and signed by: Иван Duran MD CC: Technologist: Pat Woodward RDMS Probe: Trnscrbd D/ (1500) GCD.CPS Orig Print D/T: S: 03/27/2021 (1501) [facility] NAME: BUCKKIRSTEN ZACARIAS RadiologyDepartment PHYS: Danny Bello MD [address] : 1990 AGE: 30 SEX: F [place], [place] [address] LOC: F.RAD PHONE #: [phone] EXAM DATE: 03/27/2021 STATUS: REGCLI FAX #: [phone] RAD NO: Page 4 Signed Report Patient Name: KIRSTEN WATT Unit No: [id number] EXAMS: CPT CODE: [id number] [place] PRG [place] [address] (Continued) [facility] NAME: KIRSTEN WATT Radiology Department PHYS: Danny Bello MD [address] : 1990 AGE: 30 SEX: F [place] [address] LOC: F.RAD PHONE #: [phone] EXAM DATE: 03/27/2021 STATUS: REG CLI FAX #: [phone] RAD NO: Page 5 Signed Report- US PREG AFTER [id number] 00:00:00 [facility] 1990 Sex: F Patient Name: KIRSTEN WATT Unit No: [id number] EXAMS: CPT CODE: [id number] US PREG AFTER TRI 62958 PROCEDURE INFORMATION: Exam: US After First Trimester, [...] Fetus A Gestation: Twin, viable intrauterine gestation. Fet al heart rate: 143 bpm presentation: Vertex (maternal left) Placenta: Anterior placenta, grade 1, without previa or retroplacental hemorrhage Amniotic fluid: Amniotic fluid is normal for gestational age. ANATOMY: midline falx: Unremarkable cerebellum: Unremarkable lateral ventricles: Unremarkable cisterna magna: Unremarkable choroid plexus: Unremarkable upper lip and nose: Unremarkable heart four- chamber view, heart size and position: Four-chamber heart visualized with left cardiac apex. Unremarkable LVOT. Limited RVOT by position. kidneys: Unremarkable stomach: Unremarkable. Normal situs. urinary bladder: Unremarkable spine: Unremarkable Umbilical cord insertion site into the abdomen: Unremarkable cord insertion Umbilical cord vessel number: 3 vessel cord arms and hands: Unremarkable legs and feet: Unremarkable external genitalia: Unremarkable BIOMETRY: Estimated due date (AUA): 07/23 Gestational age (AUA): 21 weeks, 3 days Estimated weight: 411 +/- 60 g [facility] NAME: KIRSTEN WATT Radiology Department PHYS: Danny Bello MD [address] : 1990 AGE: 30 SEX: F [place], [place] [address] LOC: F.RAD PHONE #: [phone] EXAM DATE: 03/27/2021 STATUS: REG CLI FAX #: [phone] RAD NO: Page 1 Signed Repor t (CONTINUED) Patient Name: KIRSTEN WATT Unit No: [id number] EXAMS: CPT CODE: [id number] US PREG AFTER 1ST TRI 40458 (Continued) Estimated weight percentile: 50.1 % Biparietal diameter [...] is closed measuring 4.5 cm in length. Rightovary/adnexa: Ovary is obscured by overlying bowel gas. Left ovary/adnexa: Ovary is obscured by over lying bowel gas. Intraperitoneal space: No intraperitoneal free fluid. IMPRESSION: 1. Viable dichorionic/diamniotic twin intrauterine gestation with normal growth for fetus A concordant with dates. Estimated weight of 411 +/- 60 g (50.1 %). 2. Limited RVOT visualization by position. Otherwise no gross anatomic abnormalities are detected. 3. The cervix is closed measuring 4.5 cm in length. 4. Normal amniotic fluid. PROCEDURE INFORMATION: Exam: USPregnancy After First Trimester, Transabdominal. Additional Gestation Exam date and time: 03/27/2021 1 0:46 AM Age: 30 years old Clinical indication: [...] intrauterine gestation. heart rate: 135 bpm [facility] [facility] NAME: KIRSTEN WATT Radiology Department PHYS: Danny Bello MD [address] : 1990 AGE: 30 SEX: F [place], [place] [address] LOC: NHUNG PHONE #: [phone] EXAM DATE: 03/27/2021 STATUS: REG CLI FAX #: [phone] RAD NO: Page 2 Signed Report (CONTINUED) Patient Name: KIRSTEN WATT Unit No: [id number] EXAMS: CPT CODE: [id number] US PREG AFTER 1ST TRI 41140 (Continued) presentation: Vertex (maternal right) Placenta: Posterior placenta, grade 1, without previa or retroplacental hemorrhage. Amniotic fluid: Amniotic fluid is normal for gestational age. ANATOMY: midline falx: Unremarkable septum pellucidum: Unremarkable cerebellum: Unremarkable lateral ventricles: Unremarkable cisterna magna: Unremarkable upper lip and nose: Unremarkable heart four-chamber view, heart size and position: Four-chamber heart identified with left cardiac apex. RVOT/LVOT are unremarkable kidneys: Unremarkable stomach: Unremarkable. Normal situs. urinary bladder: Unremarkable Spine: Unremarkable Umbilical cord insertion site into the abdomen: Normal cord insertion Umbilical cord vessel number: 3 Arms and hands: Unremarkable Legs and feet: Unremarkable external genitalia: Unremarkable BIOMETRY: Gestational age (AUA): 21 weeks, 2 days Estimated weight percentile: 49.2 % Estimated due date (AUA): 08/05/2021 Estimated weight: 408 +/- 60 g Biparietal diameter: 4.94 cm (21 weeks, 0 days) Head circumference: 18.8 cm (21 weeks, 1 day) Abdominal circumference: 16.31 cm (21 weeks, 3 days) Humeruslength (HL): 3.47 cm (21 weeks, 6 days) [...] closed measuring 4.5 cm in length. [facility] NAME: KIRSTEN WATT Radiology Department PHYS: Danny Bello MD [address] : 1990 AGE: 30 SEX: F [place] [address] LOC: Rachna.RAD PHONE #: [phone] EXAM DATE: 03/27/2021 STATUS: REG CLI FAX #: [phone] RAD NO: Page 3 Signed Report (CONTINUED) Patient Name: KIRSTEN WATT Unit No: [id number] EXAMS: CPT CODE: [id number] US PREG AFTER TRI 23198 (Continued) Electronically Signedby Иван Duran MD on 03/27/2021 at 1500 Reported and signed by: Иван Duran MD CC: Danny Wren Technologist: Pat Woodward RDMS Probe: Trnscrbd D/ (1500) GCD.CPS Orig Print D/T: S: 03/27/2021 (1501) [facility] NAME: KIRSTEN WATT Radiology Department PHYS: Danny Bello MD [address] : 1990 AGE: 30 SEX: [place] [address] LOC: Rachna.RAD PHONE #: [phone] EXAM DATE: 022 STATUS: REG CLI FAX #: [phone] RAD NO: Page 4 Signed Report Patient Name: KIRSTEN WATT Unit No: [id number] EXAMS: CPT CODE: [id number] US PREG AFTER TRI 52986 (Continued) [facility] NAME: KIRSTEN WATT Radiology Department PHYS: Danny Bello MD [address] : 1990 AGE: 30 SEX: F [place] [address] LOC: NHUNG PHONE #: [phone] EXAM DATE: 03/27/2021 STATUS: REG CLI FAX #: [phone] RAD NO: Page 5 Signed ReportBASIC METABOLIC [id number] 20:56:00* Test Item Value Reference Range Interpretation Comme nts SODIUM (test code = NA) 140 mEq/L 135-145 N POTASSIUM (test code = K) 3.4 mEq/L 3.5-5.0 L CHLORIDE (test code = CL) 105 mEq/L 100-115 N CARBON DIOXIDE (test code = CO2) 27 mEq/L 22-31 N ANION GAP (test code = GAP) 11.90 10-20 N GLUCOSE (test code = GLU) 92 mg/dL 65-110 N BLOOD UREA NITROGEN (test co de = BUN) 11 mg/dL 7-18 N GLOMERULAR FILTRATION RATE ( test code = GFR) 145 ml/min >60 N CREATININE (test code = CREAT) 0.5 mg/dL 0.5-1.0 N CALCIUM (test code = CA) 8.8 mg/dL 8.4-10.2 N HCG [id number] 20:31:00* Test Item Value Reference Range Interpretation Comme nts HCG SERUM (test code = HCG) 119814 INTERPRETATION:V ALUES BETWEEN 15-20 milliInternational units/mL NEED TO BERETESTED WITHIN 48 HOURS. All units for these ranges are in milliInternationalunits/mL0-1 WK AFTER CONCEPTION 0-50 1-2 WKS AFTER CONCEPTION 40-3002-3 WKS AFTER CONCEPTION 100-1,0003-4 WKS AFTER CONCEPTION 500-6,0001-2 MONTHS AFTER CONCEPTION 5,000-200,0002-3 MONTHS AFTER CONCEPTION 10,000-100,0002ND TRIMESTER 3,000-50,0003RD TRIMESTER 1,000-50,000 SPECIMENS WITH AN HCG LEVEL FROM 0-6 milliInternationalunits/mL SHOULD BE CONSIDERED NEGATIVE CBC W/AUTO [id number] 20:24:00* Test Item Value Reference Range Interpretation Comme nts WHITE BLOOD CELL (test code = WBC) [...] pg 27.3-33.9 N MEAN CELL HGB CONCETRATION ( test code = MCHC) 33.3 gm/dL 32.0-34.2 N RED CELL DISTRIBUTION WIDTH (test code = RDW) 12.0 % 12.2-16.3 L PLATELET COUNT (test code = PLT) 260 K/mm3 134-363 N MEAN PLATELET VOLUME (test c ode = MPV) 10.9 fL 9.2-12.7 N NEUTROPHIL % (test code = NT%) 58.7 [...] = BA#) 0.0 K/mm3 RBC MORPHOLOGY REQUIRED (jackelin t code = RBCM) NORMAL NORMAL PLATELET MORPHOLOGY REQUIRED (test code = PLTMR) NORMAL NORMAL UA RFLX MICR CULT IF [id number] 20:24:00* Test Item Value Reference Range Interpretation Comme nts UA COLOR (test code = COLU) YELLOW YELLOW UA APPEARANCE (test code = APPU) Slightly-Cloudy CLEAR UA GLUCOSE DIPSTICK (test code = DGLUU) NEGATIVE NEG UA BILIRUBIN DIPSTICK (test code = BILU) NEGATIVE NEG UA KETONE DIPSTICK (test code = KETU) TRACE NEG A UA SPECIFIC GRAVITY (test code = SGU) 1.028 1.001-1.035 N UA BLOOD DIPSTICK (test code = OLAMIDE) 3+ NEG A UA PH DIPSTICK (test code = CARLOS) 5.0 5-9 UA PROTEIN DIPSTICK (test code = PROU) 1+ NEG A UA UROBILINIOGEN DIPSTICK (test code = URO) NEGATIVE mg/dL NEG UA NITRITE DIPSTICK (test code = EDIE) NEG NEG UA LEUKOCYTE ESTERASE DIPSTICK (test code = LEUU) NEG NEG UA WBC (test code = WBCU) 3-5 #/hpf NONE SEEN A UA RBC (test code = RBCU) TOO NUMEROUS T O CNT #/hpf NONE SEEN A UA EPITHELIAL CELLS (test code = EPIU) RARE #/HPF RARE-FEW UA MUCUS (test code = MUCU) 4+ NONE SEEN Indication for culture: Suprapubic PainSpecimen Description: CLEAN CATCH- DUP AB/PEL/SC/[id number] 00:00:00 [facility] 1990 Sex: F Patient Name: KIRSTEN WATT Unit No: [id number] EXAMS: CPT CODE: [id number] DUP AB/PEL/SC/[id number] PROCEDURE INFORMATION: Exam: US First Trimester, Transabdominal [...] than 14 weeks 0 days, with image documentation.Real- time duplex ultrasound scan of the arterial or [...] diameter: 2.91 cm, 8 weeks 0 days. Brandt-Rump length: 1.00 cm, 7 weeks 1 day. MATERNAL: Uterus: The uterus measures 13.5 x 7.1 x 6.7 cm. Right adnexa: The right ovary measures 5.3 x 2.2 x 2.5 cm. Color Doppler and spectral flow in the right ovary. Left adnexa: The left ovary measures 3.4 x 1.8 x 2.3 cm. Color Doppler spectral flow in the left ovary. Intraperitoneal space: No intraperitoneal free fluid. PROCEDURE INFORMATION: Exam: US First Trimester, Transabdominal. Additional Gestation. Exam date and time: 12/18/2020 9:02 PM Age: 30 years old Clinical indication: Other: Cramping; complicated by abdominal or pelvic pain; Generalized abdominal pain; First trimester (<14 weeks 0 days); Gestational age or lmp: 7wks; ; Additional info: Bleeding, twins TECHNIQUE:Imaging protocol: Real-time transabdominal obstetrical ultrasound [facility] NAME: KIRSTEN WATT Radiology Department PHYS: Neto Bates MD [address] : 1990 AGE: 30 SEX: F [place], [place] [address] LOC: NOHEMI PHONE #: [phone] EXAM DATE: 12/18/2020 STATUS: REG ER FAX #: [phone] RAD NO: Page 1 Signed Report (CONTINUED) Patient Name: KIRSTEN WATT Unit No: [id number] EXAMS: CPT CODE: [id number] DUP AB/PEL/SC/LTD 48480(Continued) of the maternal pelvis and a first trimester with image documentation. Additional gestation was evaluated. COMPARISON: No relevant prior studies available. FINDINGS: GESTATION: Number of fetuses: 2 Multifetal identity: Fetus B Gestation: Intrauterine gestation. Yolk sac is unremarkable. Heart rate: 68 bpm. Amnionicity and Chorionicity: Although early, the appears to be dichorionic diamniotic. Extra-embryonic membranes/Placenta: No subchorionic bleed. BIOMETRY: Gestational age (AUA): 7 weeks 3 days. Brandt-Rump length: 1.15 cm, 7 weeks 2 days. Mean sac diameter: 2 .53 cm, 7 weeks 4 days. MATERNAL: Uterus: The uterus measures 13.5 x 7.1 x 6.7 cm. Right adnexa: The right ovary measures 5.3 x 2.2 x 2.5 cm. Color Doppler and spectral flow in the right ovary. Left adnexa: The left ovary measures 3.4 x 1.8 x 2.3 cm. Color Doppler spectral flow in the left ovary. == IMPRESSION: US First Trimester, Transabdominal and US Duplex Artery or Vein, Ovaries, Limited Twin intrauterine gestations. Twin A: Estimated gestational age of 7 weeks 1 day. US First Trimester, Transabdominal. Additional Gestation. 1. Twin intrauterine g estations. Twin B: Estimated gestational age of 7 [...] The findings were acknowledged and understood. at 8006 Reported and signed by: Patrice Vang M.D. [facility] NAME: KIRSTEN WATT Radiology Department PHYS: Neto Bates MD [address] : 1990 AGE: 30 SEX: F [place], [place] [address] LOC: ScoobyERS PHONE #: [phone] EXAM DATE: 12/18/2020 STATUS: REG ER FAX #: [phone] RAD NO: Page 2 Signed Report (CONTINUED) Patient Name: KIRSTEN WATT Unit No: [id number] EXAMS: CPT CODE: [id number] DUP AB/PEL/SC/LTD 53339 (Continued) CC: Neto Rae MD Technologist: Vibha singh RDMS Probe: Trnscrbd D/ (2211) GCD.CPS Orig Print D/T: S: 12/18/2020 (2211) [facility] Department PHYS: Neto Bates MD [address] : 1990 AGE: 30 SEX: [place] [address] LOC: ScoobyERS PHONE #: [phone] EXAM DATE: 12/18/2020 STATUS: REG ER FAX #: [phone] RAD NO: Page 3Signed Report Patient Name: KIRSTEN WATT Unit No: [id number] EXAMS: CPT CODE: [id number] DUP AB/PEL/SC/LTD 26897 (Continued) [facility] NAME: [facility] Radiology Department PHYS: Neto Bates MD [address] : 1990 AGE: 30 SEX: F [place], [place] [address] LOC: ScoobyERS PHONE #: [phone] EXAM DATE: 12/18/2020 STATUS: REG ER FAX #: [phone] RAD NO: Page 4 Signed Report- US PRG 1ST [facility] [id number] 00:00:00 [facility] : 1990 Sex: F Patient Name: KIRSTEN WATT Unit No: [id number] EXAMS: CPT CODE: [id number] US PRG 1ST [place] [address] PROCEDURE INFORMATION: Exam: US First Trimester, Transabdominal [...] 14 weeks 0 days, with image documentation. Real- time duplex ultrasound scan of the arterial or venous flow of the ovaries with B-mode, color Doppler flow and spectral waveform analysis, limited Duplex. COMPARISON: No relevant prior studiesavailable. FINDINGS: Gestation: Twin intrauterine . Embryonic/ heart rate: 138 bpm. Extra-embryonic membranes/Placenta: No subchorionic bleed. BIOMETRY: Gestational age (AUA): 7 weeks 1day based on crown-rump length. Estimated due date (AUA): 08/05/2021 Mean sac diameter: 2.91 cm, 8 weeks 0 days. Brandt-Rump length: 1.00 cm, 7 weeks 1 day. MATERNAL: Uterus: The uterus measures 13.5 x 7.1 x 6.7 cm. Right adnexa: The right ovary measures 5.3 x 2.2 x 2.5 cm. Color Doppler and spectral flow in the right ovary. Left adnexa: The left ovary measures 3.4 x 1.8 x 2.3 cm. Color Doppler spectral flow in the left ovary. Intraperitoneal space: No intraperitoneal free fluid. [...] Imaging protocol: Real-time transabdominal obstetrical ultrasound [facility] N DIANE: RYLIE WATTLINDA Radiology Department PHYS: Neto Bates MD [address] : 1990 AGE: 30 SEX: F [place] [address] LOC: NOHEMI PHONE #: [phone] EXAM DATE: 12/18/2020 STATUS: REG ER FAX #: [phone] RAD NO: Page 1 Signed Report (CONTINUED) Patient Name: KIRSTEN WATT Unit No: [id number] EXAMS: CPT CODE: [id number] US PRG 1ST TRI [place] ADD [address] (Continued) of the maternal pelvis and a first trimester with image documentation. Additional gestation was evaluated. COMPARISON: No relevant prior studies available. FINDINGS: GESTATION: Number of fetuses: 2 Multifetal identity: Fetus B Gestation: Intrauterine gestation. Yolk sac is unremarkable. Heart rate: 68 bpm. Amnionicity and Chorionicity: Although early, the appears to be dichorionic diamniotic. Extra-embryonic membranes/Placenta: No subchorionic bleed. BIOMETRY: Gestational age (AUA): 7 weeks 3 days. Brandt-Rump length: 1.15 cm, 7 weeks 2 days. Mean sac diameter: 2.53 cm, 7 weeks 4 days. MATERNAL: Uterus: The uterus measures 13.5 x 7.1 x 6.7 cm. Right adnexa: The right ovary measures 5.3 x 2.2 x 2.5 cm. Color Doppler and spectral flow in the right ovary.Left adnexa: The left ovary measures 3.4 x [...] Dr. Rae. The findings were acknowledged and under stood. at 2 Reported and signed by: Patrice Vang M.D. [facility] NAME: BUCKRYLIEKIRSTEN Radiology Department PHYS: Neto Bates MD [address] : 1990 AGE: 30 SEX: F [place] [address] LOC: Rachna.ERS PHONE #: [phone] EXAM DATE: 12/18/2020 STATUS: REG ER FAX #: [phone] NO: Page 2 Signed Report (CONTINUED) Patient Name: KIRSTEN WATT Unit No: [id number] EXAMS: CPT CODE: [id number] US PRG 1ST TRI EA ADD 01297 (Continued) CC: Neto Rae MD Technologist:Vibha Reinoso RDMS Probe: Trnscrbd D/ (2211) GCD.CPS Orig Print D/T: S: 12/18/2020 (2211) [facility] NAME: BUCKRYLIEKIRSTEN Radiology Department PHYS: Neto Bates MD [address] : 1990 AGE: 30 SEX: F [place] [address] LOC: F.ERS PHONE #: [phone] EXAM DATE: 12/18/2020 STATUS: REG ER FAX #: [phone] RAD NO:Page 3 Signed Report Patient Name: KIRSTEN WATT Unit No: [id number] EXAMS: CPT CODE: [id number] US PRG 1ST TRI [place] ADD [address]71 (Continued) [facility] NAME: KIRSTEN WATT Radiology Department PHYS: Neto Bates MD [address] : 1990 AGE: 30 SEX: F [place], [place] [address] LOC: F.RAKAN PHONE #: [phone] EXAM DATE: 12/18/2020 STATUS: REG ER FAX #: [phone] RAD NO: Page 4 Signed Report- US PREG EVAL 1ST [id number] 00:00:00 [facility] : 1990 Sex: F Patient Name: KIRSTEN WATT Unit No: [id number] EXAMS: CPT CODE: [id number] US PREG EVAL 1ST TRIMTR 64661 PROCEDURE INFORMATION: Exam: US First Trimester, Transabdominal and US DuplexArtery or Vein, Ovaries, Limited Exam date and time: 12/18/2020 9:02 PM Age: 30 years old Clinical indication: Other: Cramping; complicated by abdominal or pelvic pain; Generalized abdominalpain; First trimester (<14 weeks 0 days); Gestational age or lmp: 7wks; ; Additional info: Bleeding, twins TECHNIQUE: Imaging protocol: Real-time transabdominal obstetrical ultrasound of the maternal pelvis and a first trimester , less than 14 weeks 0 days, with image documentation. Real- time duplex ultrasound scan of the arterial or [...] (AUA): 08/05/2021 Mean sac diameter: 2.91 cm, 8weeks 0 days. Brandt-Rump length: 1.00 cm, 7 weeks 1 day. MATERNAL: Uterus: The uterus measures 13.5x 7.1 x 6.7 cm. Right adnexa: The right ovary measures 5.3 x 2.2 x 2.5 cm. Color Doppler and spectral flow in the right ovary. Left adnexa: The left ovary measures 3.4 x 1.8 x 2.3 cm. Color Doppler spectral flow in the left ovary. Intraperitoneal space: No intraperitoneal free fluid. PROCEDURE INFORMATION: Exam: US First Trimester, Transabdominal. Additional Gestation. Exam date and time: 12/18/2020 9:02 PM Age: 30 years old Clinical indication: Other: Cramping; complicated by abdominal or pelvic pain; Generalized abdominal pain; First trimester (<14 weeks 0 days); Gestational age or lmp: 7wks; ; Additional info: Bleeding, twins TECHNIQUE: Imaging protocol: Real-time transabdominal obstetrical ultrasound [facility] NAME: KIRSTEN WATT Radiology Department PHYS: Neto Bates MD [address] : 1990 AGE: 30 SEX: F [place], [place] [address] LOC: NOHEMI PHONE #: [phone] DATE: 12/18/2020 STATUS: REG ER FAX #: [phone] RAD NO: Page 1 Signed Report (CONTINUED) Patient Name: KIRSTEN WATT Unit No: [id number] EXAMS: CPT CODE: [id number] US PREG EVAL 1ST TRIMTR 70386 (Continued) of the maternal pelvis and a first trimester with image documentation. Additional gestation was evaluated. COMPARISON: No relevant prior studies available. FINDINGS: GESTATION: Number of fetuses: 2 Multifetal identity: Fetus B Gestation: Intrauterine gestation. Yolk sac is unremarkable. Heart rate: 68 bpm. Amnionicity and Chorionicity: Although early, the pregnancyappears to be dichorionic diamniotic. Extra-embryonic membranes/Placenta: No subchorionic bleed. BIOMETRY: Gestational age (AUA): 7 weeks 3 days. Brandt-Rump length: 1.15 cm, 7 weeks 2 days. [...] The findings were acknowledged and understood. at 8579 Reported and signedby: Patrice Vang M.D. [facility] NAME: RYLIE WATTLINDA Radiology Department PHYS: Neto Bates MD [address] : 1990 AGE: 30 SEX: F [place], [place] [address] LOC: Rachna.ERS PHONE #: [phone] EXAM DATE: 12/18/2020 STATUS: REG ER FAX #: [phone] RAD NO: Page 2 Signed Report (CONTINUED) Patient Name: KIRSTEN WATT Unit No: [id number] EXAMS: CPT CODE: [id number] US PREG EVAL 1ST TRIMTR 53985 (Continued) CC: Neto Rae MD Technologist: Vibha Reinoso RDMS Probe: Trnscrbd D/ (2211) GCD.CPS Orig Print D/T: S: 12/18/2020 (2211) [facility] Radiology Department PHYS: Neto Bates MD [address] : 1990 AGE: 30 SEX: F [place] [address] LOC: ScoobyERS PHONE #: [phone] EXAM DATE: 12/18/2020 STATUS: REG ER FAX #: [phone] RAD NO: Page 3 Signed Report Patient Name: KIRSTEN WATT Unit No: [id number] EXAMS: CPT CODE: [id number] US PREG EVAL 1ST TRIMTR 63457 (Continued) [facility] NAME: [facility] Radiology Department PHYS: Neto Bates MD [address] : 1990 AGE: 30SEX: F [place], [place] [address] LOC: Rachna.ERS PHONE #: [phone] EXAM DATE: 12/18/2020 STATUS: REG ER FAX #: [phone] RAD NO: Page 4 Signed ReportCHEMISTRY MISCELLANEOUS [id number] 10:34:00* Test Item Value Reference Range Interpretation Comme nts CHEMISTRY TEST (test code = TESTC) SEE REPORT RESULT: Abnormal Female MICROARRAY RESULT: arr(14)x3 Clinical Interpretation: Abnormal result. Trisomy 14detected. Ecwsaor79 is generally incompatible with survival. Overall,trisomy is found inapproximately 45% of miscarriages. Genetic counseling isrecommended todiscuss the significance of this result. Referral to a localgenetic counselormay be considered.Lab Note: The level of maternal cell contamination detectedin this samplemay reduce the ability to detect deletions/duplications andmosaicism. ANORA TO MARTHA Results faxed to [facility] [phone] on 09/01/20996 by.LAB.ELB1.PRODUCTS OF [id number] 14:58:00* Test Item Value Reference Range Interpretation Comme nts PRODUCTS OF CONCEPTION (test code = POC) RUN DATE: 08/25/20 [facility] PAGE 1 RUN TIME: 1647 Specimen Inquiry RUN USER: INTERFACE ZENOBIA ENT: KIRSTEN WATT LOC: ScoobyDSU U #: [id number] AGE/SX: 29/F ROOM: RE08/23/20REG DR: Danny Wren MD : [birth year] BED: DIS: STATUS: [facility] TLOC: SPEC #: [id number] RECD: 08/24/20 STATUS: ASHLEY FORD #: [id number] LULA: 08/23/20- SUBM DR: Danny Wren MD ENTERED: 08/24/20 SP TYPE: POC[ OTHR DR: ORDERED: LEVEL IV CODES: [id number] - ENDOMETRIUM, NO PROCEDURES: LEVEL IV (Incomplete) TISSUES: ENDOMETRIUM, NOS - POC CLINICAL HISTORY 29 year old, missed (mil) FINAL DIAGNOSIS Products of conception, suction curettage: - products of conception (placental villi, implantation site), decidua and gestational endometrium CPT: 54185 [facility] GROSS DESCRIPTION ANATOMIC SOURCE OF TISSUE (per Requisition): Products of conception The specimen is received in a formalin-filled container, labeled with the patient's name and designated "products of conception". The specimen consists of a Telfa pad and suction canister containing a 7 x 6 x 1.6 cm aggregate of diamond-pink to red-brown soft tissues. No parts are grossly identified. [employer] sections are submitted in A1 and A2. janett/mil 08/24/20 ---- Signed Priyanka Orta MD 08/25/20 1458 END OF REPORT URINALYSIS [id number] 15:01:00* Test Item Value Reference Range Interpretation Comme nts UA COLOR (test code = COLU) YELLOW YELLOW UA APPEARANCE (test code = APPU) CLEAR CLEAR UA GLUCOSE DIPSTICK (test co de = DGLUU) NEGATIVE NEG UA BILIRUBIN DIPSTICK (test code = BILU) NEGATIVE NEG UA KETONE DIPSTICK (test cod e = KETU) NEGATIVE NEG UA SPECIFIC GRAVITY (test co de = SGU) 1.020 1.001-1.035 N UA BLOOD DIPSTICK (test code = OLAMIDE) NEG NEG UA PH DIPSTICK (test code = CARLOS) 6.0 5-9 UA PROTEIN DIPSTICK (test co de = PROU) 2+ NEG A UA UROBILINIOGEN DIPSTICK (test code = URO) NEGATIVE mg/dL NEG UA NITRITE DIPSTICK (test co de = EDIE) NEG NEG UA LEUKOCYTE ESTERASE DIPSTI CK (test code = LEUU) NEG NEG UA WBC (test code = WBCU) 0-2 #/hpf NONE SEEN UA RBC (test code = RBCU) 0-2 #/hpf NONE SEEN UA EPITHELIAL CELLS (test co de = EPIU) RARE #/HPF RARE-FEW UA MUCUS (test code = MUCU) RARE NONE SEEN URINE SAMPLE: CLEAN CATCHCOVID 19 Asymptomatic IH [id number] 14:33:00* Test Item Value Reference Range Interpretation Comme nts COVID 19 Asymptomatic IH AG (test code = COVNONPUIAG) NEGATIVE NEGATIVE This test has be en authorized only for the detection ofproteins from SARS-CoV-2, not for any other viruses orpathogens. Negative results should be treated as presumptive andconfirmed with a molecular assay, if necessary for patientmanagement. Negative results do not rule out COVID-19 andshould not be used as the sole basis for treatment orpatient management decisions, including infection controldecisions. Negative results should be considered in thecontext of a patient's recent exposures, history and thepresence of clinical signs and symptoms consistent withCOVID-19. This test has not been FDA cleared or approved; the test hasbeen authorized by FDA under an Emergency Use Authorization(EUA) for use by laboratories certified under the CLIA thatmeet the requirements to perform moderate, high or waivedcomplexity tests. This test is authorized for use at thePoint of Care (POC), i.e., in patient care settingsoperating under a CLIA Certificate of Waiver, Certificate ofCompliance, or Certificate of Accreditation. This test is only authorized for the duration of thedeclaration that circumstances exist justifying theauthorization of emergency use of in vitro diagnostic testsfor detection and/or diagnosis of COVID-19 under Ivahzdj306(b)(1) of the Act, 21 U.S.C. 360bbb-3(b)(1), unless theauthorization is terminated or revoked sooner. CBC W/AUTO [id number] 13:57:00* Test Item Value Reference Range Interpretation Comme nts WHITE BLOOD CELL (test code = WBC) [...] pg 27.3-33.9 N MEAN CELL HGB CONCETRATION ( test code = MCHC) 33.3 gm/dL 32.0-34.2 N RED CELL DISTRIBUTION WIDTH (test code = RDW) 12.1 % 12.2-16.3 L PLATELET COUNT (test code = PLT) 261 K/mm3 134-363 N MEAN PLATELET VOLUME (test c ode = MPV) 10.0 fL 9.2-12.7 N NEUTROPHIL % (test code = NT%) 60.0 [...] = BA#) 0.0 K/mm3 RBC MORPHOLOGY REQUIRED (jackelin t code = RBCM) NORMAL NORMAL PLATELET MORPHOLOGY REQUIRED (test code = PLTMR) NORMAL NORMAL AB HIV 1 11:36:00* Test Item Value Reference Range Interpretation Comme nts AB HIV 1 2 (test code = ROR56FI) NONREACTIVE INDEX NONREACTIVE AB HIV 1 11:35:00* Test Item Value Reference Range Interpretation Comme nts AB HIV 1 2 (test code = VTW80ID) NONREACTIVE INDEX NONREACTIVE AG HEPATITIS B [id number] 07:10:00* Test Item Value Reference Range Interpretation Comme nts AG HEPATITIS B SURFACE (test code = HBSAG) NONREACTIVE NONREACTIVE IS CONSENT FORM SIGNED FOR HIV TESTING? YAB HEPATITIS C [id number] 07:10:00* Test Item Value Reference Range Interpretation Comme nts AB HEPATITIS C (test code = HCVAB) NONREACTIVE NONREACTIVE SIGNAL TO CUTOFF (test code = CUTOFF) 0.10 <0.80 N IS CONSENT FORM SIGNED FOR HIV TESTING? YAB [id number] 07:10:00* Test Item Value Reference Range Interpretation Comme nts AB TREPONEMA (test code = TREPAB) NONREACTIVE NONREACTIVE IS CONSENT FORM SIGNED FOR HIV TESTING? YAB HIV 1 07:10:00* Test Item Value Reference Range Interpretation Comme nts AB HIV 1 2 (test code = KGM67LF) TEST NOT PERFORMED NONREACTIVE SEE OTHER REQPreviously reported result: A Edited by: [email or web address] on 03/22/19:5350OJI93IK prev. reported as:A . . IS CONSENT FORM SIGNED FOR HIV TESTING? YHGB [id number] 06:31:00* Test Item Value Reference Range Interpretation Comme nts HEMOGLOBIN (test code = HGB) 9.9 g/dL 10.7-13.9 L HEMATOCRIT (test code = HCT) 29.3 % 32.1-42.1 L AG HEPATITIS B [id number] 12:39:00* Test Item Value Reference Range Interpretation Comme nts AG HEPATITIS B SURFACE (test code = HBSAG) NONREACTIVE NONREACTIVE IS CONSENT FORM SIGNED FOR HIV TESTING? YAB HEPATITIS C [id number] 12:39:00* Test Item Value Reference Range Interpretation Comme nts AB HEPATITIS C (test code = HCVAB) NONREACTIVE NONREACTIVE SIGNAL TO CUTOFF (test code = CUTOFF) 0.10 <0.80 N IS CONSENT FORM SIGNED FOR HIV TESTING? YAB [id number] 12:39:00* Test Item Value Reference Range Interpretation Comme nts AB TREPONEMA (test code = TREPAB) NONREACTIVE NONREACTIVE IS CONSENT FORM SIGNED FOR HIV TESTING? YAB HIV 1 12:39:00* Test Item Value Reference Range Interpretation Comme nts AB HIV 1 2 (test code = LXT86WW) A NONREACTIVE Done by [employer] 4th Gen HIV Ag/Ab Combo Screen IS CONSENT FORM SIGNED FOR HIV TESTING? YCBC W/AUTO [id number] 10:28:00* Test Item Value Reference Range Interpretation Comme nts WHITE BLOOD CELL (test code = WBC) [...] pg 27-35 N MEAN CELL HGB CONCETRATION ( test code = MCHC) 33.6 gm/dL 32.2-34.1 N RED CELL DISTRIBUTION WIDTH (test code = RDW) 12.8 % 12.4-16.5 N PLATELET COUNT (test code = PLT) 192 K/mm3 133-385 N IMMATURE PLATELET FRACTION ( test code = IPF) 0.0 % 0.0-10.8 N MEAN PLATELET VOLUME (test c ode = MPV) 11.8 fl 9.1-12.7 N NEUTROPHIL % (test code = NT%) 64.5 [...] = BA#) 0.0 K/mm3 RBC MORPHOLOGY REQUIRED (jackelin t code = RBCM) NORMAL NORMAL PLATELET MORPHOLOGY REQUIRED (test code = PLTMR) NORMAL NORMAL Notes Date/Time Note Provider Source 2022-11-22 09:30:44 kjETrmJm4Pn9Le30Ffo1y7P+Rg9U4AuF292VFNN vee+50Ex3liyrzszCOpxkh4DI1248-53-65N33: 30:44 Images from the original note were not included.Reached patient by phone, results shared verbalized understandingLVM for Results and recommendations regarding holter results and echo schedulingAnastasia Ramso MD P Cardiology NurseHolter monitor showed very few skipped heartbeats. No concerns during her symptoms. We have previously recommended to come back here in 3 years for repeat echocardiogram due to mild aortic regurgitation 41609-8Orlxdqnrm encounter YbeyFC1188-42-07L67:44:17Telephone encounter NoteTXT1.2.840.368524.1.13.104.2.7.2.72 7879|[id number] for patient hfqv54623-4XcnoROXHUILFCA[address] Xw[id number] WIGJYDEHULWGBDPCOMS8185-47-36D62:44:171 .2.840.413189.1.72.3.15|1.2.840.567169. 1.13.104.2.7.2.727879_[id number] [facility] 2022-11-06 11:08:51 LDCjRWEMXw1jVrzdCnPPfQ9zFmdlCM1dN5KgpGF Eh2+XPL4uoOpKqCTANxpv+AfX9022-03-05G68: 08:51 Spoke with patient and discussed results. She verbalized understanding of results. Discussed warning signs to watch out for. Advised her to call clinic if she develops new or worsening symptoms but otherwise follow up in 3 years for repeat echo as recommended. No further questions at this time. 65311-6Nmndpduxv encounter JralGW4073-54-41A40:10:13Telephone encounter NoteTXT1.2.840.091608.1.13.104.2.7.2.72 7879|[id number] for patient alcz24592-2NhuoOJ900613558Rtjx Cadence [address] Oy[id number] YNICIQEJDIYVMEIOSND2449-73-05B17:10:131 .2.840.252239.1.72.3.15|1.2.840.556513. 1.13.104.2.7.2.727879_[id number] Farzana Vila RN [facility] 2022-11-05 11:26:15 /S0YUhnSaycUGkoho557PaBKqsdvaxe8UINpAZC KtxulouExMlMyerl5Dhh+EU/+4345-96-66K03: 26:15 Images from the original note were not included.Attempted to contact patient with results/recommendations. LVM for patient to return call to [phone].Anastasia Ramos MD P Cardiology NurseStress test is normal. Echocardiogram showed a normal ejection fraction. She has mild aortic regurgitation. Note need to be considered. Recommend repeat echocardiogram in 3 years. 22697-4Ntspclsqa encounter PaerOP8345-43-15L34:28:35Telephone encounter NoteTXT1.2.840.011179.1.13.104.2.7.2.72 7879|[id number] for patient jvsp16099-9EtbxIP712762411Xeri Sheavly [address] [id number] PNDVVSBGGVZNIPNKJVJ8747-83-97D03:28:351 .2.840.760354.1.72.3.15|1.2.840.434505. 1.13.104.2.7.2.727879_[id number] Farzana Vila RN [facility] 2022-10-26 08:22:27 zXFCxTL2qtdweMhqgsS03VFEBVat8UEQFHq26kp mNGaoo/F52ogWM7dPxzGkwJuA6446-23-25K15: 22:27 Pt's results from [employer]. Placed in providers box. 02896-5Syqwgyeqy encounter VybrMH4350-63-28M19:23:29Telephone encounter NoteTXT1.2.840.357005.1.13.104.2.7.2.72 7879|[id number] for patient fyqo80390-6XvgvAW859952628Piksuprh McC[address] StreetTXTX7755577555USU AUPNGQXVFRZNXKPZGRW2664-15-15I86:23:291 .2.840.518267.1.72.3.15|1.2.840.935001. 1.13.104.2.7.2.727879_[id number] Long Koo [facility] 2022-10-25 10:55:07 xs2PkiRVUjeK80Ul7jFj0zss+2FT/jh5/MMYLDr Jn+LBlj99J1oVPp8kF8ZzS/il6290-85-61Z52: 55:07 LVM so patient can return our call to reschedule the appointments. 78874-6Egepjtqgx encounter NobaIG8459-78-05N12:55:58Telephone encounter NoteTXT1.2.840.819013.1.13.104.2.7.2.72 7879|[id number] for patient khgm21955-5KcnoDM264194278Beter [address] SqfyXtcsrlncdOveqluurpCDIE5819388091DLR FSTAYVVZJWEQMLCMKGA8016-21-86N55:55:581 .2.840.133368.1.72.3.15|1.2.840.070159. 1.13.104.2.7.2.727879_[id number] Addie Dee [facility] 2022-10-24 12:14:55 GVg+GFUefnj5eoI+QUrIEDQDELnrjnLbg3abMnh LgNjegrVseEa/xvFVMA7NPTNw6414-84-70O09: 14:55 Kirsten Watt is a 31 year old femalePt is calling stating she is needing both of her appt rescheduled Please advise [phone] (home) 58559-3Rqxjnxlda encounter LnmsGN1319-14-54K99:15:40Telephone encounter NoteTXT1.2.840.910169.1.13.104.2.7.2.72 7879|[id number] for patient uhbh95238-9TjzfTH184702859Ibseu M Rash[address] UjleXvkqprmmcIbcpnjzjgMHER3232434643YEA XORAINYSPIEHVIABVEW3942-14-42U60:15:401 .2.840.226358.1.72.3.15|1.2.840.429191. 1.13.104.2.7.2.727879_[id number] [facility] 2021-[facility]-20 10:46:00 U60591308543yXyqaChW5wQhmzoyqOxV2I9uOQZ DCsy3bvKYq9PsV8g1Xx/9IDdDEc3t6SLKRAqq78 15-12-27T10:46:00 [facility] ([facility])Full Op NoteREPORT#:[id number] REPORT STATUS: SignedDATE:12/20/21 TIME: 1046 PATIENT: KIRSTEN WATT UNIT #: [id number]#: [id number] ROOM/BED:: 90 AGE: 31 SEX: F ATTEND: Estephania Torrez AUTHOR: Estephania Torrez MD * ALL edits or amendments must be made on the electronic/computer document * Operative ReportORM Surgeries: Surgery Date and Time: 12/20/2021 1000 Proposed Primary Procedure: LAPAROSCOPIC JESSICA SALPINGECTOMY Start date: 12/20/21Start time: 1000Pre-procedure diagnosis:Desires sterilizationPost-procedure diagnosis:sameProcedures performed:Open L-scope Bilateral salpingectomyTechnique/Procedure:The patient was taken to operating room where her general was obtained without difficulty. She was then prepped and draped in the normal sterile fashion in the dorsal lithotomy position in [facility]. A sponge stick was placed in the vagina for uterine manipulation. Attention was then directed toward the patient's abdomen. A 10 mm umbilical skin incision was made with the scalpel after infiltration with local anestheticand using a direct optical trocar, the peritoneal cavity was entered under direct visualization. The abdomen was examined with no trauma noted. A pneumoperitoneum was obtained and bilateral lower quadrant ports were placed under direct visualization. The patient was then placed in Trendelenburg position. The blunt probe was thenused to explore the pelvis. The uterus, ovaries, and fallopian tubes were notedto be normal. Using a Ligasure with serial bites, the fallopian tubes were removed bilaterally. At the end of the procedure, excellent hemostasis was noted. The trocars were removed under direct visualization with no intra-abdominal bleeding noted. The umbilical trocar was removed after removal of the laparoscope. The abdomen was deflated. The skin was closed with 4.0 vicryl. Dermabond was applied. The patient tolerated the procedure well, sponge, lap and needle counts were correct times three. commercial lending assistant: During the entire case, Dr Vilchis acted as a surgical services director. SHeprovide protection and retraction. She provided suction for visualiztion. She assisted in positioning the patients and closing the wounds. Without her assistance the porcedure could not have been performed safely or to adequate accepted medical standards. Her assistance was both indicated and medically necessary. Primary Surgeon: Jane Wesleyssistant(s): Vicente NicholsonoAnesthesia: general anesthesiaIndications:Desires sterilizationOperative findings:Normal appearing uterus, tubes and ovariesComplications: noneEstimated blood loss in ml's: 5ccSpecimens removed/altered: fallopian tubesDrain(s)/tube(s): Red rubberImplant(s): noneApproach: laparoscopicDisposition: plan to D/C homeCounts: Sponge count: correct Instrument count: correct Needle count: correct at 1053 RPT #:[id number] OF REPORT OPOperative tqomyv5991-96-49Z86:46:00F.FCYP41309147 -0194AVAvailable for patient caeyXIAIUHYLFQQMGI9007-92-33M72:53:53 [facility] 2021-07-16 20:59:00 [id number]+zheEujqXrWJL2/ikXvlU oSabjFM2GGFraFDlkmMoztZJpYlgs/IhGT1Pd96 15-07-23T20:59:00 [facility] Disch PostpartumREPORT#:[id number] REPORT STATUS: SignedDATE:07/16/21 TIME: 2058 PATIENT: KIRSTEN WATT UNIT #: [id number]#: [id number] [address] [birth year] AGE: 30 SEX: F ATTEND: Danny Wren [facility] AUTHOR: Danny Wren MD * ALL edits or amendments must be made on the electronic/computer document * Subjective SubjectiveAdmission EGA: Weeks: 36 Days: 4Status/day: post , amr2Baqabevb:Pt wants to go tonight Objective GeneralVS:Vital Signs Date Temp Pulse Resp B/P B/P Mean Pulse Ox FiO2 07/16 98.1 56-62 17-18 108-114/67-68 98 Last Documented: Result Date Time Pulse Ox 98 07/16 0801 B/P 108/68 07/16 0801 Temp 98.1 07/16 0801 Pulse 62 07/16 0801 Resp 17 07/16 0801 B/P Mean 96.0 07/15 1749 PATIENT WEIGHT: Weight (lb): 210Weight (oz): 8.66Weight (kg): 95.500 Discharge Summary GeneralAssessment: nml progress, acute blood loss anemiaDate of admission:Date of admission: 07/14/21 Admission diagnosis: labor-spontaneous, twin gestationHospital course: spontaneous labor, augmentation of labor, spontaneous vag delivery, epidural anesthesia, nml postop/postpart careProcedures: epidural anesthesia, spontaneous vaginal deliv, repair of perineal lacDischarge condition: stableDischarge to: Home/Self CareDischarge diagnosis: di/di twins, active labor, x2Baby A: Vaginal delivery: spontaneous status: live born Gender: female 1 minute: 8 5 minutes: 9Baby B: status: live born Gender: female 1 minute: 8 5 minutes: 9Nursing data:The data set between the solid lines has been imported from nursing documentation. Any exceptions have been noted below under Provider comments. Delivery date A: 07/15/21 Delivery time infant A: 1457Birthweight (gm) infant A: 2730Feeding preference: Gender A: FemaleApgar 1 minute A: 5 minutes infant A: 10 minutes infant A: Provider comments on imported nursing data: [] Infant B (add'l data):The data set between the solid lines has been imported from nursing documentation. Any exceptions have been noted below under Provider comments. Delivery date infant B: 07/15/21 Delivery time infant B: 1505Birthweight (gm) B: 2750Gender B: FemaleApgar 1 minute infant B: 5 minutes B: 10 minutes B: Provider comments on imported nursing data: [] Plan: routine care, discharge today, as per pt preference Discharge InstructionsInstructions: routine instr sheet given, instr and warnings rev'dDiet: RegularActivity: Resume Normal Activity, As ToleratedAdditional discharge routines: Add. instructionsAdditional instructions:f/u in 4 weeksContraception discussed: abstinence for 4-6 weeks, will discuss at PP visitDischarge meds:Continue taking these medications:PNV WITH FE FUMARATE/FA () 1 EACH TAB Prescriptions: none Add'l Follow-up AppointmentsAttending Physician: Attending Physician: Danny Wren MD at 2106 RPT #:[id number] OF REPORT CLClinical rqps1916-43-37O92:59:00F.QJAL52313949-9 424AVAvailable for patient vqxbZZHOFNUVPXGGCE4650-91-14I13:06:38 [facility] 2021-07-16 11:06:00 [id number]+ZdBzOMBkq0a0mdcc3V371 uwumEpy5an0HeRc+Y7sJFkA4dwt7IM+j2xTW332 15-07-23T11:06:00 [facility]OB Postpart Progr NoteREPORT#:[id number] REPORT STATUS: SignedDATE:07/16/21 TIME: 1106 PATIENT: KIRSTEN WATT UNIT #: [id number]#: [id number] [address] [birth year] AGE: 30 SEX: F ATTEND: Danny Wren MDADM AUTHOR: Danny Wren MD * ALL edits or amendments must be made on the electronic/computer document * Subjective SubjectiveAdmission EGA: Weeks: 36 Days: 4Status/Day: post , Day 1Patient reports: Patient reports: Yes no complaints, Yes normal lochia, Yes pain management effective, Yes tolerating po well, Yes voiding well, Yes voiding without pain, Yes tolerating ambulation, Yes flatus Objective Nursing Documentation ReviewNursing Data:Vital Signs Date Time Temp Pulse Resp B/P B/P Pulse O2 O2 Flow FiO2 Mean Ox Delivery Rate 07/16 0801 98.1 62 17 108/68 98 07/16 0033 98.1 56 18 114/67 07/15 1806 99.0 99 18 134/79 07/15 1749 20 07/15 1749 96.0 07/15 1749 69 138/65 07/15 1733 104.0 07/15 1733 67 146/76 07/15 1719 102.0 07/15 1719 67 20 145/71 07/15 1704 103.0 07/15 1704 68 18 151/72 07/15 1656 103.0 07/15 1656 63 150/72 07/15 1649 22 07/15 1649 122.0 07/15 1649 60 177/85 07/15 1634 123.0 07/15 1634 59 20 181/86 07/15 1606 127.0 07/15 1606 68 183/88 07/15 1604 115.0 07/15 1604 75 20 164/90 07/15 1549 18 07/15 1549 114.0 07/15 1549 64 164/85 07/15 1534 92.0 07/15 1534 98.0 61 20 131/70 07/15 1433 87.0 07/15 1433 58 115/68 07/15 1419 81.0 07/15 1419 55 106/66 07/15 1402 91.0 07/15 1402 56 118/71 07/15 1147 75.0 07/15 1147 60 102/58 07/15 1134 74.0 07/15 1134 58 102/55 07/15 1118 81.0 07/15 1118 57 110/62 07/15 1103 82.0 07/15 1103 59 20 112/62 07/15 1048 79.0 07/15 1048 56 105/63 07/15 1032 86.0 07/15 1032 64 110/71 07/15 1017 83.0 07/15 1017 60 107/70 07/15 1002 77.0 07/15 1002 60 105/60 07/15 0948 77.0 07/15 0948 60 104/60 07/15 0937 85.0 07/15 0937 57 112/68 07/15 0917 77.0 07/15 0917 56 107/57 07/15 0903 78.0 07/15 0903 59 104/59 07/15 0847 75.0 07/15 0847 58 98/61 07/15 0832 78.0 07/15 0832 57 101/63 07/15 0817 84.0 07/15 0817 58 108/69 07/15 0803 76.0 07/15 0803 57 106/59 07/15 0749 75.0 07/15 0749 56 102/58 07/15 0732 76.0 07/15 0732 69 99/65 07/15 0717 77.0 07/15 0717 57 103/60 07/15 0702 75.0 07/15 0702 97.8 57 20 98/63 07/15 0648 77.0 07/15 0648 60 99/62 07/15 0633 77.0 07/15 0633 57 102/63 07/15 0617 77.0 07/15 0617 56 102/63 07/15 0602 78.0 07/15 0602 56 101/63 07/15 0547 73.0 07/15 0547 56 95/60 07/15 0534 98.4 07/15 0532 77.0 07/15 0532 60 102/61 07/15 0517 71.0 07/15 0517 61 95/57 04 0503 76.0 07/15 0503 63 101/61 07/15 0448 78.0 07/15 0448 61 102/62 07/15 0432 81.0 07/15 0432 63 105/67 07/15 0417 79.0 07/15 0417 72 102/64 07/15 0402 75.0 07/15 0402 63 101/59 07/15 0347 71.0 07/15 0347 68 97/56 07/15 0334 72.0 07/15 0334 68 97/56 07/15 0318 77.0 07/15 0318 61 102/64 07/15 0302 73.0 07/15 0302 64 98/58 07/15 0246 79.0 07/15 024 61 105/62 07/15 0241 83.0 07/15 0241 61 107/70 07/15 0236 81.0 07/15 0236 58 106/66 07/15 0231 84.0 07/15 0231 61 111/70 07/15 0226 79.0 07/15 0226 63 108/63 07/15 0221 82.0 07/15 0221 62 110/66 07/15 0142 81.0 07/15 0142 63 108/63 07/15 0024 97.8 15 07/14 233 85.0 07/14 2336 59 111/68 07/14 2326 91.0 07/14 2326 58 114/75 07/14 2316 86.0 07/14 231 57 112/69 07/14 2306 82.0 07/14 230 59 108/63 The data set between the solid lines has been imported from nursing documentation. Any exceptions have been noted below under Provider comments. Feeding preference: Post hemorrhage risk score: High Risk for Hemorrhage. __ Provider comments on imported nursing data: [] Abdomen soft, non tender, moderate lochia, firm fundus Physical ExamLacerations: Perineal laceration(s): 1st Degree High vaginal laceration: no Diagnosis, Assessment Plan Diagnosis, Assessment PlanAssessment: nml progress, acute blood loss anemiaPlan: routine care, Will start Fe supplementsPlan discussed with: patient, spouse/partner at 1108 RPT #:[id number] OF REPORT PRProgress goii2388-59-22K71:06:00F.YVPK66271510-3 187AVAvailable for patient tmfzMDCHOIRBJLAIYE9168-36-56D58:08:56 [facility] 2021-07-15 15:26:00 [id number]+n5zEbwmt+adZe9Tfv4q+B 65qLCiS9SiWZsWNIr2o+TM5nmrHi9OxhZsVv939 14-07-22T15:26:00 [facility] ([facility])OB Delivery NoteREPORT#:[id number] REPORT STATUS: SignedDATE:07/15/21 TIME: 1526 PATIENT: KIRSTEN WATT UNIT #: [id number]#: [id number] [facility] AGE: 30 SEX: F ATTEND: Danny Wren MDADM AUTHOR: Danny Wren MD * ALL edits or amendments must be made on the electronic/computer document * OB Delivery Nursing Documentation ReviewNursing data:The data set between the solid lines has been imported from nursing documentation. Any exceptions have been noted below under Provider comments. ROM date: ROM time: Membranes rupture method: AROMAmniotic fluid color: ClearAmniotic fluid amount: Steroids prior to arrival: Antibiotic prophylaxis given: Post hemorrhage risk score: High Risk for Hemorrhage. Delivery date A: Delivery time infant A: Birthweight (gm) A: Weight (lb) A: Weight (oz) infant A: Gender A: FemaleApgar 1 minute infant A: 5 minutes A: 10 minutes A: Cord pH obtained infant A: Vacuum time A: Vacuum # pulls A: Vacuum # popoffs A: QBL at delivery: ____ Provider comments on imported nursing data: [] Infant B (add'l data):The data set between the solid lines has been imported from nursing documentation. Any exceptions have been noted below under Provider comments. Delivery date infant B: Delivery time infant B: Birthweight (gm) B: Weight (lb) infant B: Weight (oz) B: Gender B: FemaleApgar 1 minute infant B: 5 minutes B: 10 minutes infant B: Cord pH obtained infant B: Vacuum time B: Vacuum # pulls infant B: Vacuum # popoffs infant B: Provider comments on imported nursing data: [] Pre-deliveryGBS status: GBS status: positive Prophylaxis administered: penicillinNewborn evaluation at delivery: NRP certified personnelAdmission EGA: Weeks: 36 Days: 4 Baby A InformationBaby A information Delivery date: 07/15/21 status: live born Wt of baby: not yet available Gender: female 1 minute: 8 5 minutes: 9 Presentation: vertexABG details Baby A Cord blood gases: not collectedNuchal cord Baby A Nuchal cord: no Baby B InformationBaby B information Delivery date: 07/15/21 status: live born Wt of baby: not yet available Gender: female 1 minute: 8 5 minutes: 9 Presentation: Transverse lie, internally rotated to vertexABG details Baby B Cord blood gases: not collectedNuchal cord Baby B Nuchal cord: no Vaginal DeliveryVaginal delivery: Labor: augmented Medications/Devices used: oxytocin Vaginal delivery: spontaneous Amniotic fluid: clear Anesthesia type: epidural anesthesia Episiotomy: none Laceration repair: yes, 2-0 suture Placenta: spontaneous, intact, sent to pathology Post delivery meds used: oxytocin, methergine, cytotec Count: correct Mother's condition: mother stable 's condition: infant stable in roomLacerations: Perineal laceration(s): 1st Degree High vaginal laceration: noExtraction details OVD performed: noShoulder dystocia present: noNote dictated: No Blood Loss/DetailsBlood loss at delivery: <1K: no sx hypovol=no hemEBL at delivery (ml's): 400 at 1530 RPT #:[id number] OF REPORT CLClinical gcab2919-51-66I00:26:00F.LSLY29005186-6 348AVAvailable for patient bvvwNZJQLNPLIRKCRP9141-97-86Y01:30:37 [facility] 2021-07-15 12:30:00 [id number]+TVf1LiRnF7pS8807jLkA 4MNas04a8xUqtBt6o5v64eu79aBQPqFVtmmuc16 14-07-222:30:00 [facility] ([facility])OB Intrapart Prog NoteREPORT#:[id number] REPORT STATUS: SignedDATE:07/15/21 TIME: 1230 PATIENT: KIRSTEN WATT UNIT #: [id number]#: [id number] [facility] AGE: 30 SEX: F ATTEND: Danny Wren MDADM AUTHOR: Danny Wren MD * ALL edits or amendments must be made on the electronic/computer document * Subjective SubjectiveAdmission EGA: Weeks: 36 Days: 4Patient reports: Patient reports: Yes: contractions, normal movement. No: complaints, abdominal pain, vaginal bleeding, leaking fluid. Objective Nursing Documentation ReviewNursing data:The data set between the solid lines has been imported from nursing documentation. Any exceptions have been noted below under Provider comments. ROM date: ROM time: ____ Provider comments on imported nursing data: [] GeneralVS:Last Documented: Result Date Time B/P Mean 75.0 07/15 1147 B/P 102/58 07/15 1147 Pulse 60 07/15 1147 Resp 20 07/15 1103 Temp 97.8 07/15 0702 Vital Signs Date Temp Pulse Resp B/P B/P Mean Pulse Ox FiO2 07/14-07/15 97.8-98.4 56-72 15-20 95-114/55-75 71.0-91.0 PATIENT WEIGHT: Weight (lb): 210Weight (oz): 8.66Weight (kg): 95.500 ObjectiveCervical/ exam: Dilatation (cm): 8 Effacement (%): 80 station: 0 presentation: cephalic Est. wt (lbs) 6Uterine activity: Monitor: toco Frequency (description): regular Frequency (minutes): 4 Duration (seconds): 45 Intensity: moderate Resting tone: relaxed Tachysystole: NoCurrent oxytocin: Indication: augmentationProcedures: vaginal exam FHR EvaluationBaby A: Baby A FHR category: category 1 Diagnosis, Assessment PlanAssessment: normal FHR pattern, slow progress of laborPlan: anticipate vag delivery, continue current managmntPlan discussed with: patient, spouse/partner, nurse at 1231 RPT #:[id number] OF REPORT PRProgress olom5688-22-07C33:30:00F.DZGL22940605-8 272AVAvailable for patient mlglHJEPLTKYYIENKL0915-72-96Z76:32:12 [facility] 2021-07-15 08:22:00 [id number]+TOJzLHlk5VidTcer7XtT PWY6JZAxg1f5RkaLdPRFUMO8GaH7KEAhWNVMq51 14-07-2208:22:00 [facility] ([facility])OB Intrapart Prog NoteREPORT#:[id number] REPORT STATUS: SignedDATE:07/15/21 TIME: 821 PATIENT: KIRSTEN WATT UNIT #: [id number]#: [id number] [facility]: [facility]-ADOB: [birth year] AGE: 30 SEX: F ATTEND: Danny Wren MDADM AUTHOR: Danny Wren MD * ALL edits or amendments must be made on the electronic/computer document * Subjective SubjectiveAdmission EGA: Weeks: 36 Days: 4Patient reports: Patient reports: Yes: contractions, normal movement. No: complaints, abdominal pain, vaginal bleeding, leaking fluid. Objective Nursing Documentation ReviewNursing data:The data set between the solid lines has been imported from nursing documentation. Any exceptions have been noted below under Provider comments. ROM date: ROM time: ____ Provider comments on imported nursing data: [] GeneralVS:Last Documented: Result Date Time B/P Mean 77.0 07/15 0648 B/P 99/62 07/15 0648 Pulse 60 07/15 0648 Temp 98.4 07/15 0534 Resp 15 07/15 0024 Vital Signs Date Temp Pulse Resp B/P B/P Mean Pulse Ox FiO2 07/14-07/15 97.8-98.4 56-72 15 95-114/56-75 71.0-91.0 PATIENT WEIGHT: Weight (lb): 210Weight (oz): 8.66Weight (kg): 95.500 ObjectiveCervical/ exam: Dilatation (cm): 7 Effacement (%): 80 station: - 1 presentation: cephalic Est. wt (lbs) 6Pelvis exam: Clinically adequate for this fetus: yesUterine activity: Monitor: toco Frequency (description): irregular Frequency (minutes): 9 Duration (seconds): 45 Intensity: moderate Resting tone: relaxed Tachysystole: NoProcedures: vaginal exam FHR EvaluationBaby A: Baby A FHR category: category 1 Diagnosis, Assessment PlanAssessment: normal FHR pattern, slow progress of laborPlan: anticipate vag delivery, begin oxytocinPlan discussed with: patient, spouse/partner, nurse at 0824 RPT #:[id number] OF REPORT PRProgress ihal9647-70-64V26:22:00F.ZCMY83420271-1 086AVAvailable for patient tllpOVFZOROLSGCYJY8030-55-64Q33:24:44 [facility] 2021-07-15 00:52:00 [id number]+meiX/NdN9JN gDYugCbNJR0sZElnUK4cngwk0tyO0ndFRtDFb35 14-07-22T00:52:144462-7074 [facility] [address], [place] [address] PATIENT NAME: KIRSTEN WATT ADMIT DATE: 07/14/21ACCOUNT NO: [id number] ROOM NO: [facility] AGE: 30 SEX: F ADMITTING PHYSICIAN: Danny Wren MD ATTENDING PHYSICIAN: Danny Wren MD ADMISSION DATE: 07/14/2021 HISTORY OF PRESENT ILLNESS: The patient is a 30-year-old 6, para 3,abortus 2, who is admitted at 36 and 4/7 weeks' estimated gestational age withdichorionic diamniotic twins, complaining of increased blood pressure anduterine contractions. The patient's has been otherwise uncomplicatedwith twins growing as expected. The patient is group B strep colonized and Rhpositive. The patient reports good movement, no vaginal bleeding and nospontaneous rupture of membranes. The patient reports uterine contractions andincreased blood pressure earlier in the afternoon. PAST MEDICAL HISTORY: The patient has had 3 spontaneous vaginal vertexdeliveries in 2008, 2010, and 2018. The patient has had 2 miscarriages, one inJ2020 requiring dilatation and curettage, one in October of 2020 with no Dand C needed. The patient had a hemorrhage requiring bloodtransfusion after the 2008 delivery. The patient had wisdom teeth extraction [id number]. ALLERGIES: NO KNOWN ALLERGIES. MEDICATIONS: vitamins. SOCIAL HISTORY: Negative for smoking, drinking, or drugs. FAMILY HISTORY: Noncontributory. REVIEW OF SYSTEMS: As per history of present illness. PHYSICAL EXAMINATION:VITAL SIGNS: Blood pressure of 115/70, pulse of 70, respiratory rate of 16. The patient is afebrile.HEENT: Within normal limits.LUNGS: Clear to auscultation and percussion.HEART: Has a normal S1 and S2.ABDOMEN: Soft and nontender with irregular contractions only.PELVIC: Cervix is 5 cm dilated, 80% effaced, -1 station with bulging bag ofwater.EXTREMITIES: Shows no lesion.NEUROLOGIC: Grossly intact. LABORATORY DATA: NST is reactive with contractions every 10 to 15 minutes. IMPRESSION: PATIENT NAME: KIRSTEN WATT 1. Intrauterine at 36 and 4/7 weeks' gestation.2. Dichorionic-diamniotic twins.3. Early labor.4. Group B strep colonization. PLAN: For labor management. The patient desires to attempt vaginal delivery. Because infant's last ultrasound was vertex-vertex, we will proceed withattempted vaginal delivery. Group B strep penicillin prophylaxis. The patientagrees with the plan and has no further questions at this time. Dictated By: Danny Wren MD WT: HP:F.FLORA/BAY/NTSDD: 07/15/2021 00:52:13DT: 07/15/2021 01:12:33Conf#: [id number]/DID#: [id number] by Danny Wren MD On 07/21/2021 08:48:16 AM at 0848 PATIENT NAME: KIRSTEN WATT and physical aenebjenjvb4981-50-92F91:12:00F.XYB9592 0423-0005AVAvailable for patient irblHMEXLRXINJDSEI7716-81-17A69:48:47 [facility] 2021-07-15 00:46:00 [id number]mEZ mgN+TNxYhfDKOupg2ijfqN3KiTz0z6So0gOcT47 14-07-22T00:46:00 [facility] ([facility])OB Admission / H PREPORT#:[id number] REPORT STATUS: SignedDATE:07/15/21 TIME: 0046 PATIENT: KIRSTEN WATT UNIT #: [id number]#: [id number] [facility] AGE: 30 SEX: F ATTEND: Danny Wren MDADM AUTHOR: Danny Wren MD * ALL edits or amendments must be made on the electronic/computer document * OB HistoryChief complaint: uterine contractionsCurrent : Admission EGA (weeks) 36 Admission EGA (days) 4Notes:See dictated H and P #[id number] Past HistoryAllergies:Coded Allergies:shellfish derived (Severe, THROAT TINGLING, DIZZINESS, CARVER 05/01/21)avocado (SWELLIMNG, NUMBNESS- THROAT/MOUTH 05/01/21) at 0052 [facility] #:[id number] OF REPORT HPHistory and physical ijrhhswmyfp6178-32-94Z63:46:00F.BAMB221 4[address]-2637GSEhslzfjtm for patient onltNQHOCDENLHEUBU8007-69-25J53:52:46 [facility] 2021-05-05 08:50:00 [id number]lQ 0m9r9xiQ6M6/RW/hkcd41UBieiwYrLC4Z3geA55 16-05-10T08:50:00 [facility] Disch UndeliveredREPORT#:[id number] REPORT STATUS: SignedDATE:05/05/21 TIME: 0850 PATIENT: KIRSTEN WATT UNIT #: [id number]#: [id number] [address] AGE: 30 SEX: F ATTEND: Danny Wren [facility] AUTHOR: Danny Wren MD * ALL edits or amendments must be made on the electronic/computer document * Subjective SubjectiveAdmission EGA: Weeks: 26 Days: 0Patient reports: Patient reports: Yes: normal movement. No: complaints, abdominal pain, vaginal bleeding, leaking fluid, contractions. Objective GeneralVS:Last Documented: Result Date Time B/P Mean 72.0 05/04 2120 B/P 100/55 05/04 212 Pulse 74 05/04 2120 Pulse Ox 100 05/04 08 Temp 98.8 05/04 818 Resp 18 05/04 818 Vital Signs Date Temp Pulse Resp B/P B/P Mean Pulse Ox FiO2 05/04 74 100/55 72.0 PATIENT WEIGHT: Weight (lb): 192Weight (oz): 5.53Weight (kg): 87.700 Physical ExamCervical/ exam: Dilatation (cm): 0 - closed Effacement (%): 80 station: - 3 presentation: cephalicFHR evaluation: Baby A FHR category: category 1Uterine activity: Monitor: toco Frequency (description): occasional Intensity: mild Resting tone: relaxed Tachysystole: NoHEENT: normocephalic w/o injuryNeuro: Exam: alert, oriented x3, normal speechAbdomen: gravid, soft, no abnormal tendernessUterus: soft, non-tenderLower extremities: Edema: trace Calf tenderness: negative Discharge Undelivered GeneralAssessment:Patient is a 30 year old G 6 P3 [] at 26 weeks gestation admitted for pretrem labor with DI/DI twins . Hospital course: [ see dictated discharge summary #[id number]] Plan:DC home at bedrestAdmission diagnosis: pre-term labor, DI/DI twinsHospital course:See dictated discharge summaryDischarge to: Home/Self CareDischarge condition: stableDischarge diagnosis: pre-term labor, DI/DI twinsProcedures: non stress test, ultrasound: abdominal Discharge InstructionsInstructions: routine instr sheet given, instr and warnings rev'dWarnings: bleeding, nausea/vomit/dehydration, labor warnings, preeclampsia signs/sympt, decreased movement, feverDiet: RegularActivity: BedrestAdditional Discharge Routines: Attending Follow-UpPrescriptions:Continue taking these medications:PNV WITH FE FUMARATE/FA () 1 EACH TAB Consultation(s): Consultation performed: neonatologistFollow up with: obstetricianAttending Physician: Attending Physician: Danny Wren MD Attending physician follow up timeframe: In 6 days at 0854 RPT #:[id number] OF REPORT CLClinical wjqw6269-70-34W08:50:00F.KKNZ41290528-4 108AVAvailable for patient uhiiTICNNGBIHABAXJ5298-86-15K87:55:21 [facility] 2021-05-05 08:48:00 [id number]/2ZB ghBa+F6SmEnkrn1lg6jjwKy/M2zpKar8aGbqT95 16-05-10T08:48:171187-5831 [facility] [address] [place], [place] [address] PATIENT NAME: KIRSTEN WATT ADMIT DATE: 05/01/21ACCOUNT NO: [id number] ROOM NO: [facility] AGE: 30 SEX: F ADMITTING PHYSICIAN: Danny Wren MD ATTENDING PHYSICIAN: Danny Wren MD ADMISSION DATE: 05/01/2021ISCHARGE DATE: 05/05/2021 HISTORY AND HOSPITAL COURSE: The patient is a 30-year-old 6, para 3,abortus 2, who was admitted at 26 weeks' estimated gestational age, in pretermlabor. The patient has dichorionic diamniotic twins. The patient was noted tohave cramping about 12 hours prior to admission. She presented to an outsidehospital where evaluation showed a positive fibronectin test. The patientthen [facility] and [facility]. At the time of arrival, the patient was noted to be closed, but 70% effaced, -2station of twin A. Pelvic and abdominal ultrasound were performed withconfirmation of a cervix of 1.5 cm in length and diamniotic-dichorionic twinswith twin A in vertex presentation. The patient therefore was admitted forsupportive care. The patient received Celestone for lung maturation andmagnesium sulfate for neuro prophylaxis. The patient was started on Exnwmxsmf68 mg for tocolysis. The patient cramping abated and the patient remainedstable. Procardia was discontinued. The patient continued to have only mildand irregular contractions. On 05/05/2021, the patient desires to be dischargedhome and followed as an outpatient. Risks and benefits were discussed with thepatient. The patient is insisting on being followed as an outpatient. Thepatient is therefore discharged home on a regular diet, to return to the officein 1 week or as needed. The patient is discharged at bed rest with bathroomprivileges. The patient was given instruction on acceptable level of activityand had no further question at the time of discharge. DISCHARGE MEDICATIONS: vitamins. Dictated By: Danny Wren MD WT: DS:F.[facility]/BAY/NTSDD: 05/05/2021 08:48:24DT: 05/05/2021 20:38:48Conf#: [id number]/DID#: [id number] Authenticated by Danny Wren MD On 05/07/2021 10:01:33 AM at 1001 PATIENT NAME: KIRSTEN WATT ojlexan7366-76-94B50:38:00F.[id number] -0326AVAvailable for patient kzcpVWRUHSQOBMIOCW4703-09-30C56:02:15 [facility] 2021-05-04 09:32:00 [id number]TTT pqlui5DzCLamDLQTt3dQJ+iSuCo63rqAExgVf81 16-05-09T09:32:00 [facility] ([facility])OB Antepartum Prog NoteREPORT#:[id number] REPORT STATUS: SignedDATE:05/04/21 TIME: 931 PATIENT: KIRSTEN WTAT UNIT #: [id number]#: [id number] [address] [birth year] AGE: 30 SEX: F ATTEND: Danny Wren MDADM AUTHOR: Danny Wren MD * ALL edits or amendments must be made on the electronic/computer document * Subjective SubjectiveAdmission EGA: Weeks: 26 Days: 0Patient reports: Patient reports: Yes no complaints, Yes normal movement, No abdominal pain, No vaginal bleeding, No leaking fluid, No contractionsComments:26w 3d EGA Objective Nursing Documentation ReviewNursing data:The data set between the solid lines has been imported from nursing documentation. Any exceptions have been noted below under Provider comments. ROM date: ROM time: Labor onset date: Labor onset time: __ Provider comments on imported nursing data: [] VS:Last Documented: Result Date Time B/P Mean 74.0 05/04 818 Pulse Ox 100 05/04 0719 B/P 99/54 05/04 08 Temp 98.8 05/04 0819 Pulse 64 05/04 0819 Resp 18 05/04 08 Vital Signs Date Temp Pulse Resp B/P B/P Mean Pulse Ox FiO2 05/03-05/04 98.8 64 18 93-99/52-54 69.0-74.0 100 PATIENT WEIGHT: Weight (lb): 192Weight (oz): 5.53Weight (kg): 87.700 Membranes: IntactLabor onset: Date: 04/30/21Cervical/ exam: Dilatation (cm): 0 - closed Effacement (%): 80 station: - 3 presentation: cephalicUterine activity: Monitor: toco Frequency (description): occasional Intensity: mild Resting tone: relaxed Tachysystole: NoProcedures: non stress test, ultrasound: abdominalHEENT: normocephalic w/o injuryNeuro: Exam: alert, oriented x3, normal speechAbdomen: gravid, soft, no abnormal tendernessUterus: soft, non-tenderLower extremities: Edema: trace Calf tenderness: negativeBaby A: Baby A FHR category: category 1Baby B: Baby B FHR category: category 1 Diagnosis, Assessment Plan Diagnosis, Assessment PlanAssessment: threatened labor, cervical shortening, no evidence infection, reassuring status, status post betamethasone, status post magnesium, DI/DI twinsPlan: continue current managmnt, continue tocolytic Rx, surveillance, DVT prophylaxisConsultation(s): Consultation performed: neonatologistPlan discussed with: patient at 0933 RPT #:[id number] OF REPORT PRProgress nvnz9300-68-62C46:32:00F.QMBY06052445-2 192AVAvailable for patient lvgiGMTNJGYSTUXOWF9750-90-45D27:33:26 [facility] 2021-05-03 08:32:00 [id number]1qZ uNZD8Yo6eTNG7wSHSpwi2bVXjwf/IO+/qCiFV20 16-05-0808:32:00 [facility] ([facility])OB Antepartum Prog NoteREPORT#:[id number] REPORT STATUS: SignedDATE:05/03/21 TIME: 0832 PATIENT: KIRSTEN WATT UNIT #: [id number]#: [id number] [address] [birth year] AGE: 30 SEX: F ATTEND: Danny Wren [facility] AUTHOR: Danny Wren MD * ALL edits or amendments must be made on the electronic/computer document * Subjective SubjectiveAdmission EGA: Weeks: 26 Days: 0Patient reports: Patient reports: Yes no complaints, Yes normal movement, No abdominal pain, No vaginal bleeding, No leaking fluid, No contractionsComments:26w 2d EGA Objective Nursing Documentation ReviewNursing data:The data set between the solid lines has been imported from nursing documentation. Any exceptions have been noted below under Provider comments. ROM date: ROM time: Labor onset date: Labor onset time: __ Provider comments on imported nursing data: [] VS:Last Documented: Result Date Time B/P Mean 70.0 05/03 0507 B/P 93/53 05/03 606 Pulse 71 05/03 606 Pulse Ox 79 05/02 2000 Temp 98.3 05/02 2000 Resp 18 05/02 2000 Vital Signs Date Temp Pulse Resp B/P B/P Mean Pulse Ox FiO2 05/02-05/03 98.3 71-90 18 82-93/49-54 61.0-70.0 79 PATIENT WEIGHT: Weight (lb): 192Weight (oz): 5.53Weight (kg): 87.700 Membranes: IntactLabor onset: Date: 04/30/21Cervical/ exam: Dilatation (cm): 0 - closed Effacement (%): 80 station: - 3 presentation: cephalicUterine activity: Monitor: toco Frequency (description): occasional Intensity: mild Resting tone: relaxed Tachysystole: NoProcedures: non stress test, ultrasound: abdominalHEENT: normocephalic w/o injuryNeuro: Exam: alert, oriented x3, normal speechAbdomen: gravid, soft, no abnormal tendernessUterus: soft, non-tenderLower extremities: Edema: trace Calf tenderness: negativeBaby A: Baby A FHR category: category 1Baby B: Baby B FHR category: category 1 Diagnosis, Assessment Plan Diagnosis, Assessment PlanAssessment: threatened labor, cervical shortening, no evidence infection, reassuring status, status post betamethasone, status post magnesium, DI/DI twinsPlan: continue current managmnt, continue tocolytic Rx, surveillance, DVT prophylaxis, Will DC procardia due to persistently low BP and no regular uterineactivity at this timeConsultation(s): Consultation performed: neonatologistPlan discussed with: patient, nurse at 0834 RPT #:[id number] OF REPORT PRProgress dsjq6374-01-41S07:32:00F.BLXQ97633003-1 084AVAvailable for patient mumzSLZOILQJVORFMF8387-56-07W67:34:16 [facility] 2021-05-02 07:27:00 [id number]+72w+8f0iPqLr4pOVwrP L/gqvqUYdDXe2Ezjl6XK0Z1EuNBCsXBc1yQ6c60 16-05-0707:27:00 [facility]OB Antepartum Prog NoteREPORT#:[id number] REPORT STATUS: SignedDATE:05/02/21 TIME: 726 PATIENT: KIRSTEN WATT UNIT #: [id number]#: [id number] [address] AGE: 30 SEX: F ATTEND: Danny Wren [facility] AUTHOR: Danny Wren MD * ALL edits or amendments must be made on the electronic/computer document * Subjective SubjectiveAdmission EGA: Weeks: 26 Days: 0Patient reports: Patient reports: Yes no complaints, Yes contractions, Yes normal movement, No abdominal pain, No vaginal bleeding, No leaking fluidComments:26w 1d EGA. Irreg ctxs only reported by pt. Objective Nursing Documentation ReviewNursing data:The data set between the solid lines has been imported from nursing documentation. Any exceptions have been noted below under Provider comments. ROM date: ROM time: Labor onset date: Labor onset time: __ Provider comments on imported nursing data: [] VS:Last Documented: Result Date Time B/P Mean 66.0 / 0548 B/P 89/54 / 0548 Pulse 78 / 0548 Pulse Ox 97 / 0019 Temp 97.7 05/01 1357 Resp 17 05/01 1357 Vital Signs Date Temp Pulse Resp B/P B/P Mean Pulse Ox FiO2 /-05/02 97.7 74-84 17 89-102/50-61 65.0-76.0 96-100 PATIENT WEIGHT: Weight (lb): 192Weight (oz): 5.53Weight (kg): 87.700 Membranes: IntactLabor onset: Date: 04/30/21Cervical/ exam: Dilatation (cm): 0 - closed Effacement (%): 80 station: - 3 presentation: cephalicUterine activity: Monitor: toco Frequency (description): occasional Intensity: mild Resting tone: relaxed Tachysystole: NoProcedures: non stress test, ultrasound: abdominalHEENT: normocephalic w/o injuryNeuro: Exam: alert, oriented x3, normal speechAbdomen: gravid, soft, no abnormal tendernessUterus: soft, non-tenderLower extremities: Edema: trace Calf tenderness: negativeBaby A: Baby A FHR category: category 1Baby B: Baby B FHR category: category 1Findings/data:Laboratory Tests: 05/01 0750 Other Body Source Membranes Rupture NON-RUPTURED Diagnosis, Assessment Plan Diagnosis, Assessment PlanAssessment: threatened labor, cervical shortening, no evidence infection, reassuring status, status post betamethasone, status post magnesium, DI/DI twinsPlan: continue current managmnt, continue tocolytic Rx, surveillance, DVT prophylaxis, Will DC magnesium sulfateConsultation(s): Consultation performed: neonatologistPlan discussed with: patient, spouse/partner, nurse at 0730 RPT #:[id number] OF REPORT PRProgress hzxi3424-02-18D56:27:00F.KCPI25206667-4 064AVAvailable for patient rjqzVMCKYUCTEYKNCL5583-66-81H46:30:28 [facility] 2021-05-01 12:10:00 [id number]ml zfXDGhzfvqMGSdTQPDm5qyo/80Q4ZJCOP02jc33 16-05-06T12:10:00 [facility] ([facility])Ferney ConsultREPORT#:[id number] REPORT STATUS: SignedDATE:05/01/21 TIME: 1210 PATIENT: KIRSTEN WATT UNIT #: [id number]#: [id number] [facility] AGE: 30 SEX: F ATTEND: Danny Wren [facility] AUTHOR: Yanet Byers MD * ALL edits or amendments must be made on the electronic/computer document * History of Present Illness HPIHPI:[facility]Prenatal ConsultNote Created Date/Time 05/01/2021 11:58:49Note Date Note Time MRN PAC05/01/2021 11:30:00 [id number] NamePalestine Regional Medical CenterFirst Name Last Name Place of Service Requested Jayne Watt Labor and Delivery Patrick Wren for Lyrrfvlwnzqt60 week Di Di twins with mother presenting in labor (not ruptured, no cervical dilation) Maternal HistoryDOB Mother's Age Blood Type Para Abor1990 30 O Pos 6 3 2RPR Serology HIV Rubella GBS HBsAg Care EDC OBNon-Reactive Negative Not done Not Done Negative Yes 2Pregnancy ComplicationsPremature onset of labor, w/o delivery, 2nd trimester (O60.02)Commentat 26w0d, regular contractionsTwin , di/di, 2nd trimester (O30.042)Maternal Steroids: YesMaternal Medications: YesNifedipineMagnesium SulfatePregnancy CommentPresented to OSH with contractions, concern for ROM, so transferred to [facility] for evaluation at 26w0d where no rupture is noted and no dilation but contractions q5-8minPresent PlanMagnesium, BMZ, expectant management RecommendationsI have reviewed the mother`s medical chart and spoken with the erecting crane operator requesting this consult. I met with the mother and father. Based on the gestational age of 26 weeks gestation, there is significant risk for mortality and significant risk for handicap if surviving. Using the 2018 Mednax Survival/Mortality Table, survival of infants admitted to the NICU is estimated at to be approximately 89%, although this can vary depending upon BW, gender, steroids and pre or factors. Survival without severeIVH or ROP is estimated to be 79% of infants admitted to the NICU. We discussed that most any organ system can have problems related to prematurity. Some of the most common morbidities associated with this degree ofprematurity, including but not limited to: respiratory distress syndrome requiring intubation and mechanical ventilation, pneumothorax, intraventricularhemorrhage, retinopathy of prematurity and possible blindness, necrotizing enterocolitis with the potential for loss of bowel, patent ductus arteriosus, infection requiring intravenous antibiotics, the need for intravenous nutrition and gavage feedings, cerebral palsy, neurodevelopmental impairment and developmental delay, and hearing impairment. I discussed the delivery room management, and explained the personnel that will be present at delivery. I reviewed the plan for delayed cord clamping (if appropriate) and thermoregulation support. We discussed the various modes of respiratory management that are available in the delivery room, including PPV, CPAP, intubation and mechanical ventilation. We also discussed the use of artificial surfactant, which may or may not be needed. Some infants need other measures in their resuscitation (e.g. CPR, fluid, blood). Commonly, infants at this gestation need an umbilical catheter(s) to allow nutrition monitoring. I reviewed the probable lab work and X-ray studies thatwill be obtained upon admission. When sufficiently stable, gavage feedings will be started. We discussed the critical importance of to optimize outcome (improved neurodevelopment, reduced risk of NEC and infections among other things). We discussed how we will support mother's . We discussed typical length of stay and discharge goals. Time was allotted for the family to ask questions, and all questions were answered to the best of my ability, given the information provided. The familyunderstands and agrees with the present plan. Thank you for inviting me to speak with the family. We remain available if the family desires further discussion or clarification.The total length of floor unit time was 45 minute(s). Counseling and/or coordination of care dominated more than fifty percent of the time. Authenticated by: Yanet Byers MD Date/Time: 05/01/2021 12:09 HistoryAllergiesCoded Allergies:shellfish derived (Severe, THROAT TINGLING, DIZZINESS, CARVER 05/01/21)avocado (SWELLIMNG, NUMBNESS- THROAT/MOUTH 05/01/21) at 1210 [facility] #:[id number] OF REPORT RSWrkoykmoestk5868-29-39H07:10:00F.PDOC [id number] for patient elahPBCGZGJGMITJGL0418-47-97H91:11:09 [facility] 2021-05-01 10:58:00 [id number]+wbvvYQupaZQW9aemtRIZ4OrCP YK2iFF3Y6yVN6pec79ANwf/cvOS4vohlKGp1438 16-05-060:58:00 [facility] ([facility])OB Admission / H PREPORT#:[id number] REPORT STATUS: SignedDATE:05/01/21 TIME: 105 PATIENT: KIRSTEN WATT UNIT #: [id number]#: [id number] ROOM[facility]BED: [facility]-ADOB: [birth year] AGE: 30 SEX: F ATTEND: Danny Wren AUTHOR: Danny Wren MD * ALL edits or amendments must be made on the electronic/computer document * OB HistoryChief complaint: uterine contractionsNotes:See dictated H and P #[id number] Past HistoryAllergies:Coded Allergies:shellfish derived (Severe, THROAT TINGLING, DIZZINESS, CARVER 05/01/21)avocado (SWELLIMNG, NUMBNESS- THROAT/MOUTH 05/01/21) at 1058 RPT #:[id number] OF REPORT HPHistory and physical qzpyfszdrdv7796-20-11C27:58:00F.CECD368 460[address]-5941MMLemazzguk for patient ghpdDXDUMJQFNBMZIG7782-27-58M08:59:03 [facility] 2021-05-01 10:52:00 [id number]YpV 7c2HR0PYAlMQEMHolukK85Rl/EPiMfkgIor/S20 16-05-06T10:52:00 [facility])OB Antepartum Prog NoteREPORT#:[id number] REPORT STATUS: SignedDATE:05/01/21 TIME: 105 PATIENT: KIRSTEN WATT UNIT #: [id number]#: [id number] ROOM/BED: -ADOB: [birth year] AGE: 30 SEX: F ATTEND: Danny Wren AUTHOR: Danny Wren MD * ALL edits or amendments must be made on the electronic/computer document * Subjective SubjectiveAdmission EGA: Weeks: 26 Days: 0Patient reports: Patient reports: Yes contractions, Yes normal movement, No abdominal pain, No vaginal bleeding, No leaking fluidComments: 26w 0d EGA. Pt complains of mild cramping Objective Nursing Documentation ReviewNursing data:The data set between the solid lines has been imported from nursing documentation. Any exceptions have been noted below under Provider comments. ROM date: ROM time: Labor onset date: Labor onset time: __ Provider comments on imported nursing data: [] VS:Last Documented: Result Date Time B/P Mean 76.0 05/01 0922 B/P 102/61 05/01 0922 Pulse 74 05/01 0922 Pulse Ox 99 05/01 0919 Temp 97.2 05/01 0608 Vital Signs Date Temp Pulse Resp B/P B/P Mean Pulse Ox FiO2 05/01 97.2-97.8 64-94 96-102/51-61 67.0-76.0 94-100 PATIENT WEIGHT: Weight (lb): 192Weight (oz): Weight (kg): 87.735378 Medications:Active Meds + DC'd Last 24 HrsBetamethasone Acet/Betameth SodPhos (CELESTONE SOLUSPAN 12MG/2 ML SYR) 12 MG ONCE ONE IM Lactated Ringer's (LACTATED RINGERS) 1,000 ML ASDIR IV Docusate Sodium (DOCUSATE SODIUM 100 MG CAP) 100 MG 0900,2100 PO Nifedipine (ADALAT 10 MG CAP) 10 MG Q6HR PO Acetaminophen (TYLENOL EXTRA STRENGTH) 500 MG Q4H PRN PRN PO Diphenhydramine HCl (diphenhydrAMINE HCL 25 MG CAP) 25 MG Q4H PRN PRN PO Famotidine (PEPCID 20 MG TAB) 20 MG BID PRN PRN PO Zolpidem Tartrate (AMBIEN 5 MG UDTAB) 5 MG BEDTIME PRN PRN PO Calcium Gluconate (CA GLUCONATE 1 GM/10 ML VIAL) 1,000 MG BOLUS ASDIR PRN IV Dextrose/Lactated Ringer's (DEXTROSE 5% IN LACTATED RINGERS 1000 ML) 1,000 ML ASDIR IV (DC) Undefined Medication (MAGNESIUM SULFATE 4GM/SWFI 100ML) 100 ML ASDIR IV (CKD) Undefined Medication (MAGNESIUM SULFATE 20GM/SWFI 500ML) 500 ML ASDIR IV (CKD) Membranes: IntactLabor onset: Date: 04/30/21Cervical/ exam: Dilatation (cm): 0 - closed Effacement (%): 80 station: - 3 presentation: cephalicTransvaginal ultrasound: Indications: suspected pre-term labor Cervical length (mm): 1.5Uterine activity: Monitor: toco Frequency (description): occasional Intensity: mild Resting tone: relaxed Tachysystole: NoProcedures: non stress test, ultrasound: abdominalHEENT: normocephalic w/o injuryNeuro: Exam: alert, oriented x3, normal speechAbdomen: gravid, soft, no abnormal tendernessUterus: soft, non-tenderLower extremities: Edema: trace Calf tenderness: negativeBaby A: Baby A FHR category: category 1Baby B: Baby B FHR category: category 1Findings/data:Laboratory Tests: 05/01 05/01 05/01 0750 0143 0119Chemistry Sodium (135 - 145 mEq/L) 134 L Potassium (3.5 - 5.0 mEq/L) 4.2 Chloride (100 - 115 mEq/L) 103 Carbon Dioxide (22 - 31 mEq/L) 21 L Anion Gap (10 - 20) 13.80 BUN (7 - 18 mg/dL) 8 Creatinine (0.5 - 1.0 mg/dL) 0.4 L Glomerular Filtr Rate (>60 ml/min) 187 Glucose (65 - 110 mg/dL) 166 H Calcium (8.4 - 10.2 mg/dL) 8.2 L Total Bilirubin (0.2 - 1.0 mg/dL) 0.2 AST (15 - 37 units/L) 27 ALT (12 - 78 units/L) 15 Total Alk Phosphatase (46 - 116 units/L) 92 Total Protein (6.3 - 8.2 gm/dL) 6.3 Albumin (3.4 - 4.8 gm/dL) 2.6 LHematology WBC (6.5 - 12.3 K/mm3) 8.5 RBC (3.51 - 4.69 M/mm3) 3.17 L Hgb (10.1 - 13.8 g/dL) 9.4 L Hct (32.5 - 41.8 %) 28.9 L MCV (84.6 - 96.6 fL) 91.2 MCH (27.3 - 33.9 pg) 29.7 MCHC (32.0 - 34.2 gm/dL) 32.5 RDW (12.2 - 16.3 %) 13.0 Plt Count (134 - 363 K/mm3) 229 MPV (9.2 - 12.7 fL) 10.4 Neut % (Auto) (57.9 - 77.3 %) 84.3 H Lymph % (Auto) (14.5 - 29.7 %) 12.3 L [place] % (Auto) (3.6 - 10.2 %) 2.5 L Eos % (Auto) (0.0 - 3.0 %) 0.2 Baso % (Auto) (0.1 - 0.9 %) 0.1 Neut # (Auto) (K/mm3) 7.1 Lymph # (Auto) (K/mm3) 1.0 [place] # (Auto) (K/mm3) 0.2 Eos # (Auto) (K/mm3) 0.02 Baso # (Auto) (K/mm3) 0.0Other Body Source Membranes Rupture NON-RUPTUREDSerology Treponema pallidum Ab (NONREACTIVE) NONREACTIVE Hep Bs Antigen (NONREACTIVE) NONREACTIVE Hepatitis C Antibody (NONREACTIVE) NONREACTIVE Hep C Ab Signal/Cutoff (<0.80) 0.04 HIV 1 2 Antibody (NONREACTIVE) NONREACTIVEUrines Urine Color (YELLOW) YELLOW Urine Appearance (CLEAR) CLEAR Urine pH (5 - 9) 6.0 Ur Specific [place] (1.001 - 1.035) 1.025 Urine Protein (NEGATIVE) NEGATIVE Urine Glucose (UA) (NEGATIVE) 1+ H Urine Ketones (NEGATIVE) NEGATIVE Urine Blood (NEGATIVE) NEG Urine Nitrite (NEGATIVE) NEGATIVE Urine Bilirubin (NEGATIVE) NEGATIVE Urine Urobilinogen (<=1.0 EU/dL) 0.2 Ur Leukocyte Esterase (NEGATIVE) NEG Urine RBC (NONE SEEN #/hpf) 0-2 Urine WBC (NONE SEEN #/hpf) 0-2 Ur Epithelial Cells (RARE - FEW #/HPF) NONE SEEN Urine Mucus (NONE SEEN) 1+ 05/01 0118 Serology SARS-CoV-2 Ag (Rapid) (NEGATIVE) NEGATIVE Recent Impressions:ULTRASOUND - US PREG UT TRANSVAGINAL 05/01 307 Report Impression - Status: SIGNED Entered: 05/01/2021424 IMPRESSION: Live twin intrauterine as above described. Impression By: SUNITA [facility] US FLW UP 05/01 307 Report Impression - Status: SIGNED Entered: 05/01/2021424 IMPRESSION: Live twin intrauterine as above described. Impression By: NILAM Cummings - US FLW UP 05/01 307 Report Impression - Status: SIGNED Entered: 05/01/2021424 IMPRESSION: Live twin intrauterine as above described. Impression By: Anival Car MD Diagnosis, Assessment Plan Diagnosis, Assessment PlanAssessment: threatened labor, cervical shortening, no evidence infection, reassuring status, DI/DI twinsPlan: continue current managmnt, continue tocolytic Rx, betamethasone admin, magnesium sulfate, surveillance, DVT prophylaxisConsultation(s): Consultation performed: neonatologistPlan discussed with: patient, spouse/partner, nurse at 1057 RPT #:[id number] OF REPORT PRProgress rnmk6681-94-04M56:52:00F.DLFA94628225-0 132AVAvailable for patient qjjaBFUAAIBDEXZBLX0833-28-76X49:57:43 [facility] 2021-05-01 01:46:00 [id number]+fu1SWrgTMepO DoagWtGHUwJri3gadEdEs6MQhKRv/tD6E+wmE20 16-05-06T01:46:00 [facility] ([facility])OB Admission / H PREPORT#:[id number] REPORT STATUS: SignedDATE:05/01/21 TIME: 0146 PATIENT: KIRSTEN WATT UNIT #: [id number]#: [id number] [facility] AGE: 30 SEX: F ATTEND: Danny Wren [facility] AUTHOR: Danny Wren MD * ALL edits or amendments must be made on the electronic/computer document * OB HistoryChief complaint: uterine contractionsNotes:See dictated H and P #[id number] Past HistoryAllergies:Coded Allergies:shellfish derived (Severe, THROAT TINGLING, DIZZINESS, CARVER 05/01/21)avocado (SWELLIMNG, NUMBNESS- THROAT/MOUTH 08/23/20) at 0147 RPT #:[id number] OF REPORT HPHistory and physical njsbdkrtzam6014-42-76G87:46:00F.JHZA969 18903-5143RDBpkecudrb for patient ztviEPGSEGVVYUPSYQ0926-53-81I43:47:30 [facility] 2021-05-01 01:43:00 [id number]9tA u0cJCWWOsueO9EsSF+CT2ZBIGke71KUYzYPxv51 16-05-06T01:43:273013-4636 [facility] [address], [place] [address] PATIENT NAME: KIRSTEN WATT ADMIT DATE: 05/01/21ACCOUNT NO: [id number] ROOM NO: [id number] AGE: 30 SEX: F ADMITTING PHYSICIAN: Danny Wren MD ATTENDING PHYSICIAN: Danny Wren MD ADMISSION DATE: 05/01/2021 HISTORY OF PRESENT ILLNESS: The patient is a 30-year-old 6, para 3,abortus 2, who presents at 26 weeks estimated gestational age for furtherevaluation and treatment of possible labor. The patient has diamnioticand dichorionic twin gestation. The patient noted the onset of cramping andcontractions approximately 12 hours prior to admission. The patient presentedto an outside hospital. Evaluation showed a positive fibronectin test. The patient was then told to present herself to labor and delivery at [facility] for further evaluation. The patient deniesspontaneous rupture of membranes or bleeding. The patient reports irregularcramping. PAST MEDICAL HISTORY: Significant for 3 spontaneous vaginal vertex deliveriesand 02 miscarriages. ALLERGIES: THE PATIENT HAD WISDOM TEETH REMOVAL. ALLERGIES: NO KNOWN ALLERGIES. MEDICATIONS: vitamins. SOCIAL HISTORY: Negative for smoking, drinking, or drugs. FAMILY HISTORY: Noncontributory. REVIEW OF SYSTEMS: As per history of present illness. PHYSICAL EXAMINATION:VITAL SIGNS: Blood pressure 96/52, pulse of 65, respiratory rate of 17, andafebrile.HEENT: Within normal limits.LUNGS: Clear to auscultation and percussion.HEART: Has a normal S1, S2.ABDOMEN: Soft and nontender with positive bowel sounds.PELVIC: Cervix is closed. Approximately 70% effaced, -2 station.EXTREMITIES: Show no lesion.NEUROLOGIC: Grossly intact. DIAGNOSTIC DATA: NST is reactive on both twins with contractions every 5 to 8minutes. LABORATORY DATA: Currently pending. PATIENT NAME: KIRSTEN WATT IMPRESSION:1. Intrauterine at 26 weeks' gestation.2. Dichorionic diamniotic twins.3. labor.4. Positive fibronectin at the outside hospital. PLAN: Admission for supportive care, Celestone for lung maturation, magnesiumsulfate for neuro prophylaxis. Ultrasound currently ordered and pending. Laboratory data will guide further evaluation and treatment. The patient agreeswith the plan and has no further question at this time. Dictated By: Danny Wren MD WT: HP:F.FLORA/BAY/NTSDD: 05/01/2021 01:43:25DT: 05/01/2021 02:25:20Conf#: [id number]/DID#: [id number] by Danny Wren MD On 05/07/2021 10:01:31 AM at 1001 PATIENT NAME: KIRSTEN WATT and physical slielthesew8817-46-28Y55:25:00F.RZQ9007 0207-0003AVAvailable for patient greqTYDJEZDZTCIBII2300-81-76G06:02:15 [facility] 2020-12-18 18:44:00 [id number]+k/ERh/J1OIwINZqTvbCPNBJijN ZpEHS+U6LZ7slqp5+RSI3fljLNXL067+d/88E20 13-12-25T18:44:00 [facility] ([facility])EMERGENCY PROVIDER REPORTREPORT#:[id number] REPORT STATUS: SignedDATE:12/18/20 TIME: 1843 PATIENT: KIRSTEN WATT UNIT #: [id number]#: [id number] ROOM/BED:AGE: 30 SEX: F PCP PHYS: Danny Wren MDSERVICE AUTHOR: Neto Rae MD * ALL edits or amendments must be made on the electronic/computer document * HPI-Preg Under 20 Weeks GeneralInitial Greet Date/Time 12/18/201843 PresentationChief Complaint Vaginal bleeding Free Text HPI NotesFree Text HPI Notes7 wnsarP2I2, twin gestationspotting, mild, started todayassociated with mild cramping and pelvic pressure2 miscarriages earlier this year 2 babies, 2 heart beats, measured 6w3d 2 days ago at center no pmhmed pnvnkda ob [place], first visit scheduled for htis week Review of Systems ROS StatementsAll systems rev neg except as marked. (as per HPI) Past Medical History - AdultStated Complaint 7 WKS PREG/ SPOTTING / TWINS - G 6 P 3AllergiesCoded Allergies:avocado (SWELLIMNG, NUMBNESS- THROAT/MOUTH 08/23/20)Uncoded Allergies:SEAFOOD (Severe, HEADACHE, SHAKING, NUMBNESS THROAT/MOUTH 08/23/20) Home MedicationsDiscontinued ScriptstraMADol (ULTRAM) 50 MG PO Q6H PRN PRN ACUTE PAIN traMADol (ULTRAM) 50 MG PO Q6H PRN PRN ACUTE PAIN #20 TABS Prov: 08/23/20 DC: 12/18/201855 Patient stopped takingIRON/FA/B12/C/DOCUSATE SODIUM (FERRALET 90) 1 EACH PO DAILY IRON/FA/B12/C/DOCUSATE SODIUM (FERRALET 90) 1 EACH PO DAILY #60 TAB Prov: 03/23/19 DC: 12/18/201855 Patient stopped taking Reported MedicationsPNV WITH FE FUMARATE/FA () Physical Exam Vital SignsVital SignsFirst Documented: Result Date Time Pulse Ox 100 12/18 184 B/P 107/61 12/18 184 B/P Mean 76 12/18 1844 Temp 36.8 12/18 1844 Pulse 66 12/18 184 Resp 16 12/18 1844 O2 Delivery Room air 12/19 2223 Last Documented: Result Date Time Pulse Ox 99 12/19 2223 B/P 104/57 12/19 2223 B/P Mean 72 12/19 2223 O2 Delivery Room air 12/19 2223 Temp 36.8 12/19 2223 Pulse 64 12/19 2223 Resp 16 12/19 2223 Review of Vital Signs Reviewed Free Text PE NotesFree Text PE NotesGEN: Well appearing/NADHEAD: Atraumatic/NCEYES: PERRL, conj clearENT: Membranes moist, airway patentNECK: Supple, no stridor RESP: No resp distress, normal RRCV: Warm, well perfused ABD: Soft/non-tender, no rebound/guardingSKIN: No rashes, warm/dry NEURO: Alert oriented, gross movement NLPSYCH: NL thought content, normal affect Interpretation Diagnostics Lab Results InterpretationResultsLaboratory Tests 12/18/201916:[Embedded Image Not Available]Laboratory Tests: 12/18 1906 Chemistry Sodium (135 - 145 mEq/L) 140 Potassium (3.5 - 5.0 mEq/L) 3.4 L Chloride (100 - 115 mEq/L) 105 Carbon Dioxide (22 - 31 mEq/L) 27 Anion Gap (10 - 20) 11.90 BUN (7 - 18 mg/dL) 11 Creatinine (0.5 - 1.0 mg/dL) 0.5 Glomerular Filtr Rate (>60 ml/min) 145 Glucose (65 - 110 mg/dL) 92 Calcium (8.4 - 10.2 mg/dL) 8.8 Hematology WBC (6.5 - 12.3 K/mm3) 8.3 RBC (3.51 - 4.69 M/mm3) 3.98 Hgb (10.1 - 13.8 g/dL) 11.9 Hct (32.5 - 41.8 %) 35.7 MCV (84.6 - 96.6 fL) 89.7 MCH (27.3 - 33.9 pg) 29.9 MCHC (32.0 - 34.2 gm/dL) 33.3 RDW (12.2 - 16.3 %) 12.0 L Plt Count (134 - 363 K/mm3) 260 MPV (9.2 - 12.7 fL) 10.9 Neut % (Auto) (57.9 - 77.3 %) 58.7 Lymph % (Auto) (14.5 - 29.7 %) 28.9 [place] % (Auto) (3.6 - 10.2 %) 9.1 Eos % (Auto) (0.0 - 3.0 %) 2.9 Baso % (Auto) (0.1 - 0.9 %) 0.2 Neut # (Auto) (K/mm3) 4.9 Lymph # (Auto) (K/mm3) 2.4 [place] # (Auto) (K/mm3) 0.8 Eos # (Auto) (K/mm3) 0.24 Baso # (Auto) (K/mm3) 0.0 Miscellaneous Maternal Serum HCG [id number] Urines Urine Color (YELLOW) YELLOW Urine Appearance (CLEAR) Slightly-Cloudy Urine pH (5 - 9) 5.0 Ur Specific [place] (1.001 - 1.035) 1.028 Urine Protein (NEG) 1+ H Urine Glucose (UA) (NEG) NEGATIVE Urine Ketones (NEG) TRACE H Urine Blood (NEG) 3+ H Urine Nitrite (NEG) NEG Urine Bilirubin (NEG) NEGATIVE Urine Urobilinogen (NEG mg/dL) NEGATIVE Ur Leukocyte Esterase (NEG) NEG Urine RBC (NONE SEEN #/hpf) TOO NUMEROUS TO CNT H Urine WBC (NONE SEEN #/hpf) 3-5 H Ur Epithelial Cells (RARE - FEW #/HPF) RARE Urine Mucus (NONE SEEN) 4+ Recent Impressions:ULTRASOUND - DUP AB/PEL/SC/LTD 12/18 1899 Report Impression - Status: SIGNED Entered: 12/18/20202211 IMPRESSION: US First Trimester, Transabdominal and US [...] Rae. The findings were acknowledged and understood. Impression By: [email or web address] - Patrice Vang M.D.ULTRASOUND - US PRG 1ST TRI EA ADD 12/18 1899 Report Impression - Status: SIGNED Entered: 12/18/20202211 IMPRESSION: US First Trimester, Transabdominal and US [...] Rae. The findings were acknowledged and understood. Impression By: Jignesh Vang M.D.ULTRASOUND - US PREG EVAL 1ST TRIMTR 12/18 190 Report Impression - Status: SIGNED Entered: 12/18/2020 221 IMPRESSION: US First Trimester, Transabdominal and US [...] Rae. The findings were acknowledged and understood. Impression By: Jignesh Vang M.D. Re-Evaluation MDM Free Text MDM NotesFree Text MDM Notesbleeding/cramping in early , Rh+live intrauterine twin gestation visualizedlow heart beat for twin B, this was discussed with pt and spouseadvised ob f/u, she is scheduled to see Dr Espinosa tomorrowreturn precautions given Patient Discharge Departure Vital Signs/ConditionVital SignsFirst Documented: Result Date Time Pulse Ox 100 12/18 1844 B/P 107/61 12/18 1844 B/P Mean 76 12/18 1844 Temp 36.8 12/18 184 Pulse 66 12/18 184 Resp 16 12/18 1844 O2 Delivery Room air 12/19 2223 Last Documented: Result Date Time Pulse Ox 99 12/19 2223 B/P 104/57 12/19 2223 B/P Mean 72 12/19 2223 O2 Delivery Room air 12/19 2223 Temp 36.8 12/19 2223 Pulse 64 12/19 2223 Resp 12/18 All vital signs available at the time of this entry have been reviewed. Clinical ImpressionClinical ImpressionPrimary Impression: Bleeding in early Disposition DecisionDischarge )( Discharged to Home Yes )( Time 2253 )( Date 12/18/20 Discharge/Care PlanCounseled Regarding Diagnosis, Lab results, Imaging studies, Need for follow-up,When to return to EDPatient Instructions Bleeding During Early PregnancyAdditional InstructionsFollow up with your ob tomorrow as scheduled at 2258RPT #:[id number] OF REPORTEDEmergency department bnvaui7911-18-48Q10:44:00F.TEQX23495993 -0302AVAvailable for patient wfdrLMZNJQARJMFZHM2720-75-87Q24:58:44 [facility] 2020-08-23 17:06:00 UDwdiahzekw194447912Z/HwXTxmMTDF8CW5KjY aKtc6ZxIu/d/n/rMABoNujDywCCZ/yB225KPGB0 HsP+41578-82-68M32:06:00 [facility] ([facility])OB Disch PostpartumREPORT#:[id number] REPORT STATUS: SignedDATE:08/23/20 TIME: 1706 PATIENT: KIRSTEN WATT UNIT #: [id number]#: [id number] ROOM/BED:: 90 AGE: 29 SEX: F ATTEND: Danny Wren [facility] AUTHOR: Danny Wren MD * ALL edits or amendments must be made on the electronic/computer document * Subjective SubjectiveComments:Missed AB at 10 weeks, S/P D C Objective GeneralVS:Vital Signs Date Temp Pulse Resp B/P B/P Mean Pulse Ox FiO2 08/23 98.7 62 18 111/59 98 Last Documented: Result Date Time Pulse Ox 98 / 1400 B/P 111/59 / 1400 O2 Delivery Room air 08/23 1400 Temp 98.7 / 1400 Pulse 62 / 1400 Resp 18 08/23 1400 PATIENT WEIGHT: Weight (lb): 178Weight (oz): 9.19Weight (kg): 81.000Abdomen soft, non tender, monimal lochia Discharge Summary GeneralAssessment: Missed AB at 10 weeksDate of admission:Date of admission: Admission diagnosis: Missed AB at 10 weeksHospital course: nml postop/postpart careProcedures: Suction D CDischarge condition: stableDischarge to: Home/Self CareDischarge diagnosis: Missed AB at 10 weeksPlan: discharge today Discharge InstructionsInstructions: routine instr sheet given, instr and warnings rev'dDiet: RegularActivity: No Flagler for 6 WksAdditional discharge routines: Attending Follow-UpContraception discussed: abstinence for 4-6 weeksDischarge meds:Continue taking these medications:IRON/FA/B12/C/DOCUSATE SODIUM (FERRALET 90) 90 MG-1 MG-12 MCG-120 MG-50 MG TAB 1 EACH ORAL DAILY. Qty = 60 Start taking the following new medications:traMADol (ULTRAM) 50 MG TAB 50 MILLIGRAM ORAL EVERY 6 HOURS NEEDED. as needed for ACUTE PAIN Qty = 20 No Refills Prescriptions: e-prescribe Kay'l Follow-up AppointmentsAttending Physician: Attending Physician: Danny Wren MD Attending physician follow up timeframe: In 1-2 weeks at 1709 RPT #:[id number] OF REPORT OBObstetric jjye4888-60-03G80:06:00F.PZXG65105563-0 271AVAvailable for patient spnoSHWORYCTFCFYAF3086-87-83B04:10:03 [facility] 2020-08-23 16:59:00 XYqcdsouyca04294860WV6igd0WTtbV6hpUM/KT en57nvD/m4mkQpbKhLb+h7rvV21sbbR1tkkAvhT 6Rb4F7536-83-80E21:59:898104-[address] [address] PATIENT NAME: KIRSTEN WATT ADMIT DATE: 08/23/20ACCOUNT NO: [id number] ROOM NO: AGE: 29 SEX: F ADMITTING PHYSICIAN: ATTENDING PHYSICIAN: Danny Wren MD OPERATION DATE: 08/23/2020 PREOPERATIVE DIAGNOSIS: Missed at 10 weeks by dates and 8 weeks bysize. POSTOPERATIVE DIAGNOSIS: Missed at 10 weeks by dates and 8 weeks bysize. OPERATION: Suction dilatation and curettage. SURGEON: Danny Wren MD MANAGER VOICE: ANESTHESIA:. FINDINGS: Uterus sounded to 10 cm. Moderate amount of products of conceptionrecovered and sent to pathology for evaluation. ESTIMATED BLOOD LOSS: 200 mL. PROPHYLAXIS: Ancef 2 g. COMPLICATIONS: None. DISPOSITION: To recovery room in good condition. OPERATION IN DETAIL: After satisfactory induction of general anesthesia, thepatient was prepped and draped in usual sterile fashion in the dorsal lithotomyposition. The bladder was emptied with a red rubber catheter with qncsrqvoaezms73 mL of clear urine noted. The anterior lip of the cervix was then graspedwith a single-tooth tenaculum. A weighted speculum was placed in the posteriorvagina. The uterus was then sounded to 10 cm. The cervical dilation was thenperformed with Hegar dilators. A #8 flexible curette was then inserted and asuction curettage performed. This was followed with a sharp curettage to ensurecomplete evacuation of the products of conception. Some fragments of theproducts of conception were sent for cytogenetic analysis. The rest of thespecimen was sent to pathology. At the end of the procedure, ultrasound wasperformed. No intrauterine could be identified. The single-toothtenaculum was then removed from the anterior lip of the cervix as was theweighted speculum. Hemostasis appeared to be excellent and the patient wastransferred to the recovery room in good condition, extubated. The patientreceived intravenous Pitocin, intramuscular Methergine before the beginning of PATIENT NAME: KIRSTEN WATT the procedure and 400 mcg of Cytotec again before the beginning of theprocedure, intrarectally. During the procedure, the patient received aolpyld215 mcg of Cytotec per rectum. Dictated By: Danny Wren MD WT: OP:F.FLORA/BAY/LEANNDD: 08/23/2020 16:59:54DT: 08/23/2020 19:11:51Conf#: [id number]/DID#: [id number] Authenticated by Danny Wren MD On 09/22/2020 10:37:18 AM at 1037 PATIENT NAME: KIRSTEN WATT eykgxq2648-43-84M28:11:00F.EHW98938860- 0333AVAvailable for patient gqzmNRUOMZJKNAUXNE8313-73-78M68:37:47 [facility] 2020-08-23 16:53:00 MFmywkznrml45895504IZJhwgvdwMC6ftOY5hAU eeoCgwArgZwHm4/hfHahUtkmbKDOD7mY8JvYBjM kFiM20217-88-80N21:53:00 [facility] ([facility]ITALFull Op NoteREPORT#:[id number] REPORT STATUS: SignedDATE:08/23/20 TIME: 1652 PATIENT: KIRSTEN WATT UNIT #: [id number]#: [id number] ROOM/BED:: 90 AGE: 29 SEX: F ATTEND: Danny Wren MDADM AUTHOR: Danny Wren MD * ALL edits or amendments must be made on the electronic/computer document * Operative ReportStart date: 08/23/20 time: re-procedure diagnosis:Missed at 10 weeksPost-procedure diagnosis:SameProcedures performed:Suction D CTechnique/Procedure:Suction D CPrimary Surgeon: Danny ChavarriaoAssistant(s): noneAnesthesia: general anesthesiaOperative findings:Uterus sounded to 10 cm. Moderate amt of POCs recovered and sent to PathComplications: noneEstimated blood loss in ml's: 200mlSpecimens removed/altered: POCs to pathImplant(s): noneDisposition: plan to D/C homeCounts: Sponge count: correctDictation number:#[id number] at 1700 RPT #:[id number] OF REPORT OPOperative yhnnsg9406-55-51T57:53:00F.DMJA45278942 -0269AVAvailable for patient ndyoIVBXGQGTDGJTDS0146-13-39E32:00:32 [facility] 2020-08-23 14:21:00 DXedgzsidfw20780547c04gzBBrR1VL8ScXw7tD pyt8QBgGFZCIX/ckD6EvdxamwZGgjJ6mKh3Ekd7 COPi63875-52-38P94:21:032363-1699 [facility] [address] PATIENT NAME: KIRSTEN WATT ADMIT DATE: 08/23/20ACCOUNT NO: [id number] ROOM NO: AGE: 29 SEX: F ADMITTING PHYSICIAN: ATTENDING PHYSICIAN: Danny Wren MD ADMISSION DATE: 08/23/2020 HISTORY OF PRESENT ILLNESS: The patient is a 29-year-old 4, para 3,abortus 1 with a missed , diagnosed by ultrasound. The patient's lastmenstrual period is 06/05/2020 making her approximately 11 weeks by dates;however, ultrasound is consistent with a demise of approximately 8 weeks'size. The patient has some vaginal spotting and mild cramping. PAST SURGICAL HISTORY: The patient's past surgical history is significant for awisdom teeth removal at age 12. The patient had 2 spontaneous vaginaldeliveries in 2010 and 2018. The patient had a vaginal delivery in 2008,complicated by hemorrhage requiring blood transfusion after delivery. SOCIAL HISTORY: Otherwise, negative for smoking, drinking, or drugs. FAMILY HISTORY: Noncontributory. MEDICATIONS: vitamins. REVIEW OF SYSTEMS: As per history of present illness. PHYSICAL EXAMINATION:VITAL SIGNS: Blood pressure 110/57, pulse of 80, respiratory rate of 16. Thepatient is afebrile.HEENT: Within normal limits.LUNGS: Clear to auscultation and percussion.HEART: Has a normal S1, S2.ABDOMEN: Soft and nontender with positive bowel sounds.PELVIC: Cervix is closed. The uterus is 8-week size.EXTREMITIES: Shows no lesion.NEUROLOGIC: Grossly intact. IMPRESSION:1. Intrauterine at 11 weeks by dates, 8 weeks by size, with a missedabortion.2. The patient prefers dilatation and curettage for evacuation of the uterus. PLAN: The plan is for a D and C as per the patient's preference. Dictated By: Danny Wren MD WT: HP:F.[facility]/BAY/NTSDD: 08/23/2020 14:21:08 PATIENT NAME: KIRSTEN WATT Conf#: [id number]/DID#: [id number] by Danny Wren MD On 09/22/2020 10:37:13 AM at 1037 PATIENT NAME: KIRSTEN WATT and physical jdvdxpepxid7384-88-08P95:18:00F.UPW0836 01-0307AVAvailable for patient yeswDSSRKJYOVNFEYH5902-55-45D94:37:47 [facility] 2020-08-23 14:16:00 [id number]/pVm8HqE8BXu8tkb /stC6qtRMReverLd1kottGoiDf3M7h3h7uoFmOr gG0n83123-13-52A66:16:00 [facility]OB Admission / H PREPORT#:[id number] REPORT STATUS: SignedDATE:08/23/20 TIME: 1416 PATIENT: KIRSTEN WATT UNIT #: [id number]#: [id number] ROOM/BED:: 90 AGE: 29 SEX: F ATTEND: Danny Wren MDADM AUTHOR: Danny Wren MD * ALL edits or amendments must be made on the electronic/computer document * OB HistoryChief complaint: suspected ruptured memb (missed AB at 8 weeks)Notes:See dictated H and P #[id number] Past HistoryAllergies:Coded Allergies:avocado (SWELLIMNG, NUMBNESS- THROAT/MOUTH 08/23/20)Uncoded Allergies:SEAFOOD (Severe, HEADACHE, SHAKING, NUMBNESS THROAT/MOUTH 08/23/20) at 1421 RPT #:[id number] OF REPORT HPHistory and physical aiyuixzydgg9574-06-83U74:16:00F.MHQE498 [id number] for patient ruhtLTRJCGEASDKZZR4665-85-44B60:21:43 [facility] 2019-03-23 08:53:00 HThvsfywrpd43315725jRVdZ/JB7X9L2o055tg5 L2vVwdrOHk9Mtsf8QMH3QakvY3vVdKRob4AgAY5 dgPFM1237-24-11N03:53:00 [facility] ([facility])OB Disch PostpartumREPORT#:[id number] REPORT STATUS: SignedDATE:03/23/19 TIME: 0853 PATIENT: KIRSTEN WATT UNIT #: [id number]#: [id number] [address] AGE: 28 SEX: F ATTEND: Danny Wren [facility] AUTHOR: Danny Wren MD * ALL edits or amendments must be made on the electronic/computer document * Subjective SubjectiveAdmission EGA (wks/days): 39 weeksEGA at delivery (wks/days): 39 weeksStatus/day: post , Day 2Patient reports: Patient reports: Yes: normal lochia, pain management effective, tolerating po well, voiding well, voiding without pain, tolerating ambulation, flatus. No: complaints. Objective GeneralVS:Vital Signs Date Time Temp Pulse Resp B/P B/P Pulse O2 O2 Flow FiO2 Mean Ox Delivery Rate 03/22 1710 98.0 50 17 113/67 03/22 0818 97.9 64 18 96/62 03/21 1845 52 18 123/73 03/21 1825 97.5 56 18 120/70 03/21 1753 80.0 03/21 1753 59 112/60 03/21 1738 87.0 03/21 1738 62 116/70 03/21 1730 88.0 03/21 1730 83 17 114/72 03/21 1723 88.0 03/21 1723 53 114/72 03/21 1708 84.0 03/21 1708 56 110/69 03/21 1700 80.0 03/21 1700 57 17 113/62 03/21 1653 80.0 03/21 1653 57 113/62 03/21 1645 79.0 03/21 1645 55 106/59 03/21 1638 79.0 03/21 1638 55 106/59 03/21 1630 98.0 17 03/21 1630 90.0 03/21 1630 51 131/66 03/21 1545 89.0 03/21 1545 50 18 134/63 03/21 1538 89.0 03/21 1538 50 134/63 03/21 1530 81.0 03/21 1530 60 18 119/59 03/21 1517 98.0 18 03/21 1517 81.0 03/21 1517 60 119/59 03/21 1438 84.0 03/21 1438 57 114/65 03/21 1423 83.0 03/21 1423 51 109/67 03/21 1408 79.0 03/21 1408 59 106/62 03/21 1354 79.0 03/21 1354 54 109/58 03/21 1339 80.0 03/21 1339 60 108/58 03/21 1324 78.0 03/21 1324 57 101/63 03/21 1309 77.0 03/21 1309 52 108/54 03/21 1250 98.0 16 03/21 1250 78.0 03/21 1250 56 105/62 03/21 1247 79.0 03/21 1247 56 103/64 03/21 1244 82.0 03/21 1244 55 108/67 03/21 1241 82.0 03/21 1241 54 108/65 03/21 1240 79.0 03/21 1240 55 104/62 03/21 1239 71.0 03/21 1239 61 89/61 03/21 1229 80.0 03/21 1229 54 105/64 03/21 1226 78.0 03/21 1226 55 104/63 03/21 1223 75.0 03/21 1223 57 100/61 03/21 1220 75.0 03/21 1220 59 99/62 03/21 1217 80.0 03/21 1217 57 105/66 03/21 1214 80.0 03/21 1214 62 105/66 03/21 1211 82.0 03/21 1211 58 107/67 03/21 1208 82.0 03/21 1208 67 106/69 03/21 1158 80.0 03/21 1158 58 105/65 03/21 1129 79.0 03/21 1129 57 107/61 03/21 1113 81.0 03/21 1113 55 105/66 03/21 1058 77.0 03/21 1058 56 102/61 03/21 1043 77.0 03/21 1043 61 103/61 03/21 1029 73.0 03/21 1029 64 102/57 03/21 0948 98.0 63 16 94/60 03/21 0938 72.0 03/21 0938 63 94/60 Vital Signs Date Temp Pulse Resp B/P B/P Mean Pulse Ox FiO2 03/22 98.0 50 17 Last Documented: Result Date Time B/P 03/22 1710 Temp 98.0 03/22 1710 Pulse 50 03/22 1710 Resp 17 03/22 1710 B/P Mean 80.0 03/21 1753 Patient Weight Weight (lb): 191Weight (oz): Weight (kg): 86.636Abdomen soft, non tender, moderate lochia, firm fundus Discharge Summary Discharge SummaryDate of admission:Date of admission: 03/21/19 Admission diagnosis: labor-termHospital course: induction of labor, spontaneous vag delivery, epidural anesthesia, nml postop/postpart careProcedures: epidural anesthesia, spontaneous vaginal delivBaby A: status: live born Gender: female 1 minute: 8 5 minutes: 9Nursing data:The data set between the solid lines has been imported from nursing documentation. Any exceptions have been noted below under Provider comments. EGA (weeks/days): 39.6EGA at admit (weeks): Delivery date infant A: 03/21/19 Delivery time infant A: 1451Birthweight (gm) A: 3510Feeding preference: Gender infant A: FemaleApgar 1 minute A: 8Apgar 5 minutes A: 9Apgar 10 minutes A: Provider comments on imported nursing data: [] Plan: routine care, discharge todayInstructions: routine instr sheet given, instr and warnings rev'dDiet: regularActivity and restrictions: up ad santiago, may shower, pelvic rest, no intercourse for 6 wks, no drivingContraception discussed: abstinence for 4-6 weeks, will discuss at PP visitDischarge meds:Start taking the following new medications:IRON/FA/B12/C/DOCUSATE SODIUM (FERRALET 90) 90 MG-1 MG-12 MCG-120 MG-50 MG TAB 1 EACH ORAL DAILY. Qty = 60 No Refills Prescriptions: e-prescribeConsultation(s): Consultation performed: anesthesiaDischarge condition: stableDischarge to: homeFollow up in: 3 weeksDischarge diagnosis: full-term uncomp delivery at 0[address] [facility] #:[id number] OF REPORT OBObstetric brfi3844-25-14Q70:53:00F.XWUK91668689-8 089AVAvailable for patient euenSYSLCIRIFZCYWH6158-63-38P51:55:58 [facility] 2019-03-22 09:49:00 RCljcjcohnu66051744VWvvf3gjUkQG/5JFdLKx PW8FUlXD9DcSmE6AXqO/Z4XU4Sko38b0oBZf/kq 3Gj2Q7482-44-01C89:49:00 [facility] ([facility])OB Postpart Progr NoteREPORT#:[id number] REPORT STATUS: SignedDATE:03/22/19 TIME: 948 PATIENT: KIRSTEN WATT UNIT #: [id number]#: [id number] [address] [birth year] AGE: 28 SEX: F ATTEND: Danny Wren [facility] AUTHOR: Danny Wren MD * ALL edits or amendments must be made on the electronic/computer document * Subjective SubjectiveAdmission EGA (wks/days): 39 weeksEGA at delivery (wks/days): 39 weeksStatus/day: post , post operativePatient reports: Patient reports: Yes: normal lochia, pain management effective, tolerating po well, voiding well, voiding without pain, tolerating ambulation, flatus. No: complaints. Objective Nursing Documentation ReviewNursing data:Vital Signs Date Time Temp Pulse Resp B/P B/P Pulse O2 O2 Flow FiO2 Mean Ox Delivery Rate 03/21 1845 52 18 123/73 03/21 1825 97.5 56 18 120/70 03/21 1753 80.0 03/21 1753 59 112/60 03/21 1738 87.0 03/21 1738 62 116/70 03/21 1730 88.0 03/21 1730 83 17 114/72 03/21 1723 88.0 03/21 1723 53 114/72 03/21 1708 84.0 03/21 1708 56 110/69 03/21 1700 80.0 03/21 1700 57 17 113/62 03/21 1653 80.0 03/21 1653 57 113/62 03/21 1645 79.0 03/21 1645 55 106/59 03/21 1638 79.0 03/21 1638 55 106/59 03/21 1630 98.0 17 03/21 1630 90.0 03/21 1630 51 131/66 03/21 1545 89.0 03/21 1545 50 18 134/63 03/21 1538 89.0 03/21 1538 50 134/63 03/21 1530 81.0 03/21 1530 60 18 119/59 03/21 1517 98.0 18 03/21 1517 81.0 03/21 1517 60 119/59 03/21 1438 84.0 03/21 1438 57 114/65 03/21 1423 83.0 03/21 1423 51 109/67 03/21 1408 79.0 03/21 1408 59 106/62 03/21 1354 79.0 03/21 1354 54 109/58 03/21 1339 80.0 03/21 1339 60 108/58 03/21 1324 78.0 03/21 1324 57 101/63 03/21 1309 77.0 03/21 1309 52 108/54 03/21 1250 98.0 16 03/21 1250 78.0 03/21 1250 56 105/62 03/21 1247 79.0 03/21 1247 56 103/64 03/21 1244 82.0 03/21 1244 55 108/67 03/21 1241 82.0 03/21 1241 54 108/65 03/21 1240 79.0 03/21 1240 55 104/62 03/21 1239 71.0 03/21 1239 61 89/61 03/21 1229 80.0 03/21 1229 54 105/64 03/21 1226 78.0 03/21 1226 55 104/63 03/21 1223 75.0 03/21 1223 57 100/61 03/21 1220 75.0 03/21 1220 59 99/62 03/21 1217 80.0 03/21 1217 57 105/66 03/21 1214 80.0 03/21 1214 62 105/66 03/21 1211 82.0 03/21 1211 58 107/67 03/21 1208 82.0 03/21 1208 67 106/69 03/21 1158 80.0 03/21 1158 58 105/65 03/21 1129 79.0 03/21 1129 57 107/61 03/21 1113 81.0 03/21 1113 55 105/66 03/21 1058 77.0 03/21 1058 56 102/61 03/21 1043 77.0 03/21 1043 61 103/61 03/21 1029 73.0 03/21 1029 64 102/57 03/21 0948 98.0 63 16 94/60 03/21 0938 72.0 03/21 0938 63 94/60 03/21 0842 79.0 03/21 0842 98.2 18 106/62 Laboratory Tests: 03/22 0556 Hematology Hgb (10.7 - 13.9 g/dL) 9.9 L Hct (32.1 - 42.1 %) 29.3 L The data set between the solid lines has been imported from nursing documentation. Any exceptions have been noted below under Provider comments. Feeding preference: __ Provider comments on imported nursing data: [] Abdomen soft, non tender, moderate lochia, firm fundus Physical ExamLacerations: Perineal laceration(s): 1st Degree Diagnosis, Assessment Plan Diagnosis, Assessment PlanAssessment: nml progress, anemia r/t: (acute blood loss)Plan: routine care, Will start Fe supplementsPlan discussed with: patient, spouse/partner at 0950 RPT #:[id number] OF REPORT PRProgress Uyjz1771-19-73C16:49:00F.IJQS61325345-3 111AVAvailable for patient ojuxKSCTIQKEKFJUBK2549-93-15T74:50:51 [facility] 2019-03-21 16:00:00 INgckwjtjrd06595637MfCvnnTQ/mf0hLuCTlJi CSKxl9O1mCjg821zSFrFYwL1bbjzKcOa5nDY1QP UX5i31780-60-99X24:00:00 [facility] ([facility])OB Delivery NoteREPORT#:[id number] REPORT STATUS: SignedDATE:03/21/19 TIME: 1600 PATIENT: KIRSTEN WATT UNIT #: [id number]#: [id number] [facility] AGE: 28 SEX: F ATTEND: Danny Wren MDADM AUTHOR: Danny Wren MD * ALL edits or amendments must be made on the electronic/computer document * OB Delivery Nursing Documentation ReviewNursing data:The data set between the solid lines has been imported from nursing documentation. Any exceptions have been noted below under Provider comments. ROM date: 03/21/19 ROM time: 1237Membranes rupture method: AROMAmniotic fluid color: ClearAmniotic fluid amount: EGA (weeks/days): EGA at admit (weeks): EGA at delivery (weeks): Steroids prior to arrival: Antibiotic prophylaxis given: Ferney evaluation at delivery: Delivery date A: 03/21/19 Delivery time A: 1451Birthweight (gm) A: Weight (lb) infant A: Weight (oz) infant A: Gender A: 1 minute A: 5 minutes A: 10 minutes infant A: Cord pH obtained infant A: Vacuum time infant A: Vacuum # pulls A: Vacuum # popoffs infant A: ____ Provider comments on imported nursing data: [] Pre-deliveryGBS status: GBS status: negativeNewborn evaluation at delivery: NRP certified personnelAdmission EGA (wks/days): 39 weeksEGA at delivery (wks/days): 39 weeks GeneralVS:Last Documented: Result Date Time B/P Mean 84.0 03/21 1438 B/P 114/65 03/21 1438 Pulse 57 03/21 143 Temp 98.0 03/21 1250 Resp 16 03/21 1250 Membranes: AROMROM date: 03/21/19Amniotic fluid: clear Baby A InformationBaby A information Delivery date: 03/21/19 status: live born Wt of baby: not yet available Gender: female 1 minute: 8 5 minutes: 9 Presentation: vertexABG details Baby A Cord blood gases: not collectedNuchal cord Baby A Nuchal cord: no Vaginal DeliveryVaginal delivery Labor: spontaneous Medications/Devices used: oxytocin Amniotic fluid: clear Anesthesia type: epidural anesthesia Episiotomy: none Episiotomy repair: not applicable Laceration repair: yes Episiotomy/laceration suture: 2-0 Placenta: spontaneous, intact Post delivery meds used: oxytocin, methergine Count: correct Mother's condition: mother stable 's condition: infant stable in roomLacerations: Perineal laceration(s): 1st DegreeExtraction details OVD performed: noShoulder dystocia present: no Blood Loss/DetailsEBL (ml's): 200 at 1603 RPT #:[id number] OF REPORT OBObstetric owhh1616-79-13W17:00:00F.SEKR16807947-1 292AVAvailable for patient jctgHWMDPSQUUYLSBZ5196-89-65A68:04:12 [facility] 2019-03-21 12:43:00 QKzkxlcsvda36025600aDlWTAv5E9dKsr/o1xqZ T2CWAWsmfjW9KImfn0c8i2lIYm4jmFhVW2pbflw 7miDT2789-03-41R96:43:00 [facility] Intrapart Prog NoteREPORT#:[id number] REPORT STATUS: SignedDATE:03/21/19 TIME: 1243 PATIENT: KIRSTEN WATT UNIT #: [id number]#: [id number] [facility] [birth year] AGE: 28 SEX: F ATTEND: Danny Wren MDADM AUTHOR: Danny Wren MD * ALL edits or amendments must be made on the electronic/computer document * Subjective SubjectivePatient reports: Patient reports: Yes contractions, Yes normal movement, No complaints, No abdominal pain, No vaginal bleeding, No leaking fluid Objective Nursing Documentation ReviewNursing data:The data set between the solid lines has been imported from nursing documentation. Any exceptions have been noted below under Provider comments. ROM date: ROM time: ____ Provider comments on imported nursing data: [] ObjectiveCervical/ exam: Dilatation (cm): 5 Effacement (%): 80 station: - 1 presentation: cephalic Est. wt (lbs) 8Pelvis exam: Clinically adequate for this fetus: yesUterine activity: Monitor: toco Frequency (description): regular Frequency (minutes): 5 Duration (seconds): 45 Intensity: moderate Resting tone: relaxed Tachysystole: NoCurrent oxytocin: Indication: induction Infusion rate: 4.00Procedures: artificial rupture memb FHR EvaluationBaby A: Baby A FHR category: category 1 Diagnosis, Assessment PlanAssessment: normal FHR pattern, normal progress of laborPlan: anticipate vag delivery, continue current managmnt, epidural anesthesiaPlan discussed with: patient, nurse at 1244 RPT #:[id number] OF REPORT PRProgress Ufkf3397-93-02O89:43:00F.QHUS56006774-1 232AVAvailable for patient otgzSXFFIPFQTHXYDD8947-52-24W50:45:06 [facility] 2019-03-21 11:02:00 CKgiitvtpmp19316229wHM/NdMHYb9Zhb3T402z A62P0mA4wT8weVjB23toNOfnzUwyhgI52k2R+Zb dxdqU4588-03-94K74:02:931055-2298 [facility] [place] [id number] PATIENT NAME: KIRSTEN WATT ADMIT DATE: 03/21/19ACCOUNT NO: [id number] ROOM NO: [facility] AGE: 28 SEX: F ADMITTING PHYSICIAN: Danny Wren MD ATTENDING PHYSICIAN: Danny Wren MD ADMISSION DATE: 03/21/2019 HISTORY OF PRESENT ILLNESS: The patient is a 28-year-old 3, para 2,admitted at 39 and 5/7th weeks estimated gestational age for induction of laboras per the patient's preference. The patient reports good movement and novaginal bleeding and no spontaneous rupture of membranes. The patient is groupB strep negative. The patient is Rh positive. PAST MEDICAL HISTORY: Significant for two spontaneous vaginal vertex deliveriesin 2008 and 2010. The patient had wisdom teeth extracted at age 19. Thepatient had an episode of hemorrhage requiring blood transfusion [id number]. ALLERGIES: NO KNOWN ALLERGIES. MEDICATIONS: vitamins. SOCIAL HISTORY: Negative for smoking, drinking, or drugs. FAMILY HISTORY: Noncontributory. REVIEW OF SYSTEMS: As per history of present illness. PHYSICAL EXAMINATION:VITAL SIGNS: Blood pressure of 109/59, pulse of 70, respiratory rate of 18. The patient is afebrile.HEENT: Within normal limits.LUNGS: Clear to auscultation and percussion.HEART: Has a normal S1, S2.ABDOMEN: Soft and nontender with positive bowel sounds.PELVIC: Cervix is 4 cm dilated, 70% effaced, -1 station. NST is reactive withcontractions every 5 to 10 minutes. IMPRESSION: Intrauterine at 39 and 5/7th weeks and patient desiresinduction of labor. PLAN: Labor induction as per patient's preference. Dictated By: Danny Wren MD WT: HP:FKILEY/BAY/NTSDD: 03/21/2019 11:02:19DT: 03/21/2019 11:15:55 PATIENT NAME: KIRSTEN WATT Conf#: [id number]/DID#: [id number] by Danny Wren MD On 03/22/2019 06:42:15 PM at 1842 PATIENT NAME: KIRSTEN WATT and physical wajkhdxdqwk0661-10-40Z12:15:00F.SGS1827 1228-0073AVAvailable for patient bjlaIAJLJCLHQIOHDJ3970-26-84X83:42:39 [facility] 2019-03-21 10:58:00 FGpoqmknjtc4770046689RN6B+g7t211vfziaCx Tong+ma5hj4romWUpZki1sNjpiZPgZZVvO3A5ceBO ie3HK3767-86-48Q81:58:00 [facility] ([facility])OB Admission / H PREPORT#:[id number] REPORT STATUS: SignedDATE:03/21/19 TIME: 1058 PATIENT: KIRSTEN WATT UNIT #: [id number]#: [id number] [facility] [birth year] AGE: 28 SEX: F ATTEND: Danny [facility]ren [facility] AUTHOR: Danny Wren MD * ALL edits or amendments must be made on the electronic/computer document * OB Admission H P HxChief complaint: scheduled inductionNotes:See dictated H and P #[id number] Allergies:No Known Allergies (03/21/19) at 1103 RPT #:[id number] OF REPORT HPHistory and physical mmftvwaisas9513-92-88T98:58:00F.DAVJ292 17[address]-7407JWFzjzdidjf for patient axzrYXCRNOYBUYWUYO1573-68-12W47:04:02 [facility]
[2023-06-30] MEDS ORDERED: ONDANSETRON 4 MG/2 ML VIAL ONE (23:46)
--- NOTE | 2023-07-01 00:01 | ER ---
Nurse's Notes [facility] Name: Cathy Watt Age: 32 yrs Sex: Female : 1990 Arrival Date: 06/30/2023 Time: 21:54 Bed 16 Private MD: Diagnosis: Mechanical fall;Abdominal pain Presentation: 06/29 22:03 Chief complaint: Patient states: I slipped in the bathroom, and now I am having lower bm8 left abd pain that is sore and ruth burning. Coronavirus screen: Vaccine status: At this time, the client does not indicate any symptoms associated with coronavirus-19. Ebola Screen: Patient negative for fever greater than or equal to 101.5 degrees Fahrenheit, and additional compatible Ebola Virus Disease symptoms Patient denies exposure to infectious person. Patient denies travel to an Ebola-affected area in the 21 days before illness onset. No symptoms or risks identified at this time. Initial Sepsis Screen: Does the patient meet any 2 criteria? No. Patient's initial sepsis screen is negative. Does the patient have a suspected source of infection? No. Patient's initial sepsis screen is negative. Risk Assessment: Do you want to hurt yourself or someone else? Patient reports no desire to harm self or others. Onset of symptoms was June 30, 2023 at 21:30. 22:03 Method Of Arrival: Ambulatory bm8 22:03 Acuity: MADAI 3 bm8 Triage Assessment: 22:05 General: Appears in no apparent distress. uncomfortable, Behavior is calm, cooperative, bm8 appropriate for age. Pain: Complains of pain in suprapubic area and left lower quadrant Pain does not radiate. Pain currently is 7 out of 10 on a pain scale. Quality of pain is described as pressure, sharp. EENT: No deficits noted. No signs and/or symptoms were reported regarding the EENT system. Neuro: Level of Consciousness is awake, alert, obeys commands, Oriented to person, place, time, situation, Appropriate for age. Cardiovascular: Denies chest pain, shortness of breath, Capillary refill < 3 seconds Patient's skin is warm and dry. Respiratory: Airway is patent Respiratory effort is even, unlabored, Respiratory pattern is regular, symmetrical. GI: Abdomen is flat, non-distended, Bowel sounds present X 4 quads. Abdomen is tender to palpation in suprapubic area and left lower quadrant Guarding noted in suprapubic area and left lower quadrant. : No deficits noted. No signs and/or symptoms were reported regarding the genitourinary system. Derm: No deficits noted. No signs and/or symptoms reported regarding the dermatologic system. Musculoskeletal: No deficits noted. No signs and/or symptoms reported regarding the musculoskeletal system. PIZZA DELIVERY: 22:05 LMP 06/24/2023, unknown bm8 Historical: - Allergies: 22:05 No Known Allergies; bm8 - Home Meds: 22:05 None [Active]; bm8 - PMHx: 22:05 None; bm8 - PSHx: 22:05 D\T\C; tubal ligation (D\T\C); bm 8 - Immunization history:: Adult Immunizations up to date. - Infectious Disease History:: Denies. - Social history:: Smoking status: Patient reports the use of cigarette tobacco products, Patient denies any tobacco usage or history of. - Family history:: not pertinent. Screenin:42 [facility] ED Fall Risk Assessment (Adult) History of falling in the last 3 months, km8 including since admission No falls in past 3 months (0 pts) Confusion or Disorientation No (0 pts) Intoxicated or Sedated No (0 pts) Impaired Gait No (0 pts) Mobility Assist Device Used No (0 pt) Altered Elimination No (0 pt) Score/Fall Risk Level 0 - 2 = Low Risk Oriented to surroundings, Maintained a safe environment, Educated pt \T\ family on fall prevention, incl call for assistance when getting out of bed, Assessed \T\ reinforced patient's understanding of fall precautions. Abuse screen: Denies threats or abuse. Denies injuries from another. Nutritional screening: No deficits noted. Tuberculosis screening: No symptoms or risk factors identified. Assessment: 22:42 General: Appears in no apparent distress. uncomfortable, Behavior is calm, cooperative, km8 appropriate for age. Pain: Complains of pain in left lower quadrant Pain currently is 5 out of 10 on a pain scale. Quality of pain is described as aching, dull, Is continuous. Neuro: Level of Consciousness is awake, alert, obeys commands, Oriented to person, place, time, situation. Cardiovascular: Denies chest pain, Patient's skin is warm and dry. Respiratory: Airway is patent Respiratory effort is even, unlabored, Respiratory pattern is regular, symmetrical. GI: Abdomen is obese, Reports lower abdominal pain, Pain is 5 out of 10 on a pain scale. : No signs and/or symptoms were reported regarding the genitourinary system. EENT: No signs and/or symptoms were reported regarding the EENT system. Derm: No signs and/or symptoms reported regarding the dermatologic system. Skin is intact, is healthy with good turgor, Skin is dry, Skin is pink, warm \T\ dry. normal, Skin temperature is warm. Musculoskeletal: No signs and/or symptoms reported regarding the musculoskeletal system. Range of motion: intact in all extremities. 23:30 Reassessment: Patient appears in no apparent distress at this time. No changes from km previously documented assessment. Patient and/or family updated on plan of care and expected duration. Pain level reassessed. Patient is alert, oriented x 3, equal unlabored respirations, skin warm/dry/pink. Vital Signs: 22:03 BP 114 / 75; Pulse 63; Resp 20; Temp 98.5; Pulse Ox 100% ; Weight 81.65 kg; Height 5 bm8 ft. 2 in. ; Pain 7/10; 22:30 BP 100 / 70; Pulse 53; Resp 16; Pulse Ox 98% on R/A; km8 23:00 BP 103 / 75; Pulse 57; Resp 16; Pulse Ox 100% on R/A; km8 23:30 BP 111 / 76; Pulse 58; Resp 16; Pulse Ox 100% on R/A; km8 22:03 Body Mass Index 32.92 (81.65 kg, 157.48 cm) bm8 22:03 Pain Scale: Adult bm8 Grace Coma Score: 22:42 Eye Response: spontaneous(4). Motor Response: obeys commands(6). Verbal Response: km8 oriented(5). Total: 15. ED Course: 21:57 Patient arrived in ED. ra3 21:58 Mathew Keenan MD is Attending Physician. rt 22:05 Triage completed. bm8 22:05 Arm band placed on right wrist. Patient placed in an exam room, on a stretcher. bm8 22:34 Jyothi Paez RN is Primary Nurse. km8 22:42 Patient has correct armband on for positive identification. Placed in gown. Bed in low km8 position. Call light in reach. Side rails up X 1. Pulse ox on. NIBP on. Lights dimmed. Warm blanket given. 22:42 Test, Serum Sent. km8 22:42 Inserted saline lock: 20 gauge in left antecubital area, using aseptic technique. Blood km8 collected. 22:43 Initial lab(s) drawn, by me, sent to lab. km8 23:41 CT Abd/Pelvis - IV Contrast Only In Process Unspecified. EDMS 06/30 00:20 Provided Education on: d/c teaching. km8 00:20 No provider procedures requiring assistance completed. km8 00:21 IV discontinued, intact, bleeding controlled, No redness/swelling at site. Pressure km8 dressing applied. Administered Medications: 00:10 Not Given (Patient Refused): ondansetron 4 mg IVP once; over 2 minutes km8 Medication: 06/29 22:42 VIS not applicable for this client. km8 Outcome: 06/30 00:00 Discharge ordered by . rt 00:21 Discharged to home ambulatory, with significant other, km8 00:21 Condition: good 00:21 Discharge instructions given to patient, Instructed on discharge instructions, follow up and referral plans. Demonstrated understanding of instructions, follow-up care, 00:24 Patient left the ED. km8 Signatures: Dispatcher [employer] EDIN Mathew Keenan MD MD rt Jyothi Paez, RN RN km8 Nupur Venegas ra3 Valentino De La O, RN RN bm8
--- NOTE | 2023-07-01 00:01 | EDPHYS ---
Physician Documentation [facility] Name: Cathy Watt Age: 32 yrs Sex: Female : 1990 Arrival Date: 06/30/2023 Time: 21:54 Bed 16 Private MD: ED Physician Mathew Keenan HPI: 06/30 00:01 This 32 yrs old Female presents to ER via Ambulatory with complaints of Fall rt Injury - belly pain and burning sensation. 00:01 Patient presents to the ED with a slip and fall in the shower. Patient states that she rt landed on her buttocks. Denies any significant head trauma. Reports a left lower quadrant pain following the fall. Denies other injuries, acute complaints, symptoms are moderate in severity, aching in nature, nonradiating, no other aggravating or alleviating factors.. 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 - Infectious Disease History:: Denies. - Social history:: Smoking status: Patient reports the use of cigarette tobacco products, Patient denies any tobacco usage or history of. - Family history:: not pertinent. ROS: 06/30 00:01 Constitutional: Negative for fever, chills, and weight loss, Cardiovascular: Negative rt for chest pain, palpitations, and edema, Respiratory: Negative for shortness of breath, cough, wheezing, and pleuritic chest pain, MS/Extremity: Negative for injury and deformity, Skin: Negative for injury, rash, and discoloration, Neuro: Negative for headache, weakness, numbness, tingling, and seizure, Abdomen/GI: Positive for abdominal pain, Negative for nausea and vomiting, Exam: 00:01 Constitutional: This is a well developed, well nourished patient who is awake, alert, rt and in no acute distress. Head/Face: Normocephalic, atraumatic. Chest/axilla: Normal chest wall appearance and motion. Nontender with no deformity. No lesions are appreciated. Cardiovascular: Regular rate and rhythm with a normal S1 and S2. No gallops, murmurs, or rubs. Normal PMI, no JVD. No pulse deficits. Respiratory: Lungs have equal breath sounds bilaterally, clear to auscultation and percussion. No rales, rhonchi or wheezes noted. No increased work of breathing, no retractions or nasal flaring. Skin: Warm, dry with normal turgor. Normal color with no rashes, no lesions, and no evidence of cellulitis. MS/ Extremity: Pulses equal, no cyanosis. Neurovascular intact. Full, normal range of motion. Neuro: Awake and alert, GCS 15, oriented to person, place, time, and situation. Cranial nerves II-XII grossly intact. Motor strength 5/5 in all extremities. Sensory grossly intact. Cerebellar exam normal. Normal gait. 00:01 Abdomen/GI: Mild tenderness to the left lower quadrant, no rebound, guarding, distention, Vital Signs: 06/29 22:03 BP 114 / 75; Pulse 63; Resp 20; Temp 98.5; Pulse Ox 100% ; Weight 81.65 kg; Height 5 bm8 ft. 2 in. ; Pain 7/10; 22:30 BP 100 / 70; Pulse 53; Resp 16; Pulse Ox 98% on R/A; km8 23:00 BP 103 / 75; Pulse 57; Resp 16; Pulse Ox 100% on R/A; km8 23:30 BP 111 / 76; Pulse 58; Resp 16; Pulse Ox 100% on R/A; km8 22:03 Body Mass Index 32.92 (81.65 kg, 157.48 cm) bm8 22:03 Pain Scale: Adult bm8 Grace Coma Score: 22:42 Eye Response: spontaneous(4). Motor Response: obeys commands(6). Verbal Response: km8 oriented(5). Total: 15. MDM: 22:19 Patient medically screened. rt 06/30 00:06 Differential diagnosis: Intra-abdominal injury, abdominal wall strain. Data reviewed: rt vital signs, nurses notes, lab test result(s), radiologic studies. Independent interpretation of the following test(s) in the Emergency Department CT Scan: My interpretation is No bowel obstruction syndrome interpretation of CT scan images. Counseling: I had a detailed discussion with the patient and/or guardian regarding the historical points, exam findings, and any diagnostic results supporting the discharge/admit diagnosis, radiology results, the need for outpatient follow up. Response to treatment: the patient's symptoms have markedly improved after treatment. 06/29 22:25 Order name: Test, Serum; Complete Time: 23:40 rt 06/29 22:25 Order name: CT Abd/Pelvis - IV Contrast Only rt Administered Medications: 00:10 Not Given (Patient Refused): ondansetron 4 mg IVP once; over 2 minutes km8 Disposition Summary: 07/01/23 00:00 Discharge Ordered Notes: Location: Home rt Problem: new rt Symptoms: have improved rt Condition: Stable rt Diagnosis - Mechanical fall rt - Abdominal pain rt Followup: rt - With: Private Physician - When: 2 - 3 days - Reason: Discharge Instructions: - Discharge Summary Sheet rt - Abdominal Pain, Adult rt Forms: - Medication Reconciliation Form rt - Thank You Letter rt - Antibiotic Education rt - Prescription Opioid Use rt - Patient Portal Instructions rt - Leadership Thank You Letter rt Signatures: Dispatcher [employer] Mathew Bowling MD MD rt Valentino De La O, RN RN bm8 Jyothi Paez RN km8
[2023-07-01 07:45] VITALS: BP 111/76; TEMP 98.5; O2SAT 100
--- NOTE | 2023-07-01 13:28 | RAD REPORT ---
EXAM DESCRIPTION: CT - Abdomen Pelvis W Contrast - 07/01/2023 6:13 am CLINICAL HISTORY: The patient is 32 years old and is Female; BLUNT TRAUMA TECHNIQUE: Axial computed tomography images of the abdomen and pelvis with intravenous contrast. S agittal and coronal reformatted images were created and reviewed. This CT exam was performed using one or more of the following dose reduction techniques: automated exposure control, adjustment of t he mA and/or kV according to patient size, and/or use of iterative reconstruction technique. COMPARISON: CT Abdomen Pelvis dated Aug 15 2021 FINDINGS: LUNG BASES: Unremarkable. No mass. No consolidation. ABDOMEN: LIVER: Unremarkable. No mass. GALLBLADDER AND BILE DUCTS: The gallbladder is contracted. PANCREAS: No ductal dilation. No mass. SPLEEN: Unremarkable. ADRENALS: Unremarkable. No mass. KIDNEYS AND URETERS: Unremarkable. The kidneys enhance symmetrically. No obstructing renal or ure teral calculus is seen. No hydronephrosis or hydroureter. No perinephric fluid or stranding. STOMACH AND BOWEL: The stomach is not well-distended. The small bowel is normal in caliber. A mod erate amount of stool is present throughout the colon. There is no mucosal thickening or evidence of obstruction. PELVIS: APPENDIX: The appendix is normal in caliber without surrounding inflammation. BLADDER: The bladder is nearly empty. REPRODUCTIVE: Unremarkable as visualized. ABDOMEN and PELVIS: INTRAPERITONEAL SPACE: Unremarkable. No free air. No significant fluid collection. BONES/JOINTS: There is no acute fracture of the visualized axial and appendicular skeleton. The v ertebral body heights and alignment are maintained. SOFT TISSUES: The soft tissues are normal. VASCULATURE: Unremarkable. No abdominal aortic aneurysm. LYMPH NODES: Prominent bilateral inguinal chain lymph nodes are present. IMPRESSION: No evidence of solid organ injury or traumatic bony findings on this contrasted CT of th e abdomen and pelvis. Electronically signed by: Niru Maravilla MD 06/30/2023 11:52 PM CDT Due to temporary technical issues with the PACS/Fluency reporting system, reports are being signed by the in house radiologist without review as a courtesy to ensure prompt reporting. The interpreting r adiologist is fully responsible for the content of the report
== END 2023-07-01 00:24 | disposition home or self-care (01) ==
LOC: ER 21:54
DX: R10.32 Left lower quadrant pain (principal); W01.0XXA Fall on same level from slipping, tripping and stumbling without subsequent striking against object, initial encounter
CPT/HCPCS: 36415; 84703; 74177; 99284; Q9967; J2405